=== PATIENT | male | born 1960 | race Caucasian/White ===

== ENCOUNTER → 2017-02-08 | Outpatient (CLI) | payer BC ==
--- NOTE | 2017-02-08 15:16 | RAD ---
Chest, 2 views, 02/08/2017: History: COPD, hypertension, diabetes The heart size and pulmonary vascularity are normal. There is mild tortuosity of the thoracic aorta. A calcified granuloma is present left base. No acute infiltrates are seen. There is no evidence of pleural fluid. IMPRESSION: No acute cardiopulmonary abnormality is detected.
== END | disposition home or self-care (01) ==
LOC: RAD 14:52
PROVIDERS: ATTEND Internal Medicine Critical Care Medicine
DX: J44.9 Chronic obstructive pulmonary disease, unspecified (principal)
CPT/HCPCS: 71020

== ENCOUNTER 2018-01-09 07:11 | Outpatient (CLI) | payer BC ==
[2018-01-09 07:29] LABS: ADD MAN DIFF? NO
[2018-01-09 07:31] LABS: BASO % 1 % (0-3); EOS # 0.1 x10^3/uL (0.0-0.7); EOS % 2 % (0-3); HEMATOCRIT 42.4 % (39.0-53.0); HEMOGLOBIN 14.7 g/dL (13.0-17.5); LYMPH # 1.7 x10^3/uL (1.0-4.8); LYMPH % 29 % (24-48); MEAN CORPUSCULAR HEMOGLOBIN 30 pg (25-35); MEAN CORPUSCULAR HGB CONC 35 g/dL (31-37); MEAN CORPUSCULAR VOLUME 88 fL (79-100); MONO # 0.5 x10^3/uL (0.0-1.1); MONO % 9 % (0-9); NEUT # 3.3 x10^3uL (1.8-7.7); NEUT % 59 % (31-73); PLATELET COUNT 213 x10^3/uL (140-400); RED BLOOD COUNT 4.84 x10^6/uL (4.30-5.70); RED CELL DISTRIBUTION WIDTH 16.4 % (11.5-14.5); WHITE BLOOD COUNT 5.6 x10^3/uL (4.0-11.0)
[2018-01-09 07:40] LABS: PROTHROMBIN TIME PATIENT 13.1 SEC (11.7-14.0)
[2018-01-09 07:41] LABS: PARTIAL THROMBOPLASTIN TIME 26 SEC (24-38)
[2018-01-09] MEDS ORDERED: LIDOCAINE WITH 8.4% SOD BICARB 3 ML DISP.SYRIN. (08:43)
[2018-01-09] MEDS: LIDOCAINE WITH 8.4% SOD BICARB 3 ML DISP.SYRIN. IJ (08:45)
== END 2018-01-09 09:48 | disposition home or self-care (01) ==
LOC: INTRAD 07:11
DX: D86.1 Sarcoidosis of lymph nodes (principal)
CPT/HCPCS: 36415; 38505; 76536; 76942; 85025; 85610; 85730

== ENCOUNTER → 2018-02-09 | Outpatient (CLI) | payer BC | END | disposition home or self-care (01) | LOC: CT 08:29 | DX: R59.0 Localized enlarged lymph nodes (principal); J44.9 Chronic obstructive pulmonary disease, unspecified | CPT/HCPCS: 71250 ==

== ENCOUNTER 2018-02-23 08:49 | Day surgery (SDC) | payer BC ==
[~2018-02-23 08:49] MED LIST: LIDOCAINE 1% PF 2 ML VIAL. ID; ONDANSETRON PF 4 MG/2 ML VIAL. IV; PROCHLORPERAZINE 10 MG/2 ML VIAL. IV; fentaNYL PF VIAL 100 MCG/2 ML VIAL IV
[2018-02-23] MEDS: IV RINGERS,LACTATED 1000ML 1,000 ML IV (09:44)
[2018-02-23 09:46] LABS: POC GLUCOSE 101 mg/dL (70-99)
[2018-02-23] MEDS ORDERED: GLYCOPYRROLATE 1 MG/5 ML VIAL. (10:08)
[2018-02-23] MEDS ORDERED: fentaNYL PF VIAL 100 MCG/2 ML VIAL ×3 (10:08→12:31)
[2018-02-23] MEDS ORDERED: SEVOFLURANE 61 TO 120 MINUTES. IH (10:08)
[2018-02-23] MEDS ORDERED: MIDAZOLAM HCL/PF 2 MG/2 ML VIAL. (10:08)
[2018-02-23] MEDS ORDERED: LIDOCAINE 2% PF Vial for OR 5 ML VIAL. (10:09)
[2018-02-23] MEDS ORDERED: NEOSTIGMINE METHYLSULFATE 5 MG/5 ML SYRINGE. (10:09)
[2018-02-23] MEDS ORDERED: ONDANSETRON PF 4 MG/2 ML VIAL. (10:09)
[2018-02-23] MEDS ORDERED: DEXAMETHASONE SOD PHOS 20 MG/5 ML VIAL. (10:09)
[2018-02-23] MEDS ORDERED: PROPOFOL 20 ML IV (10:09)
[2018-02-23] MEDS ORDERED: ROCURONIUM 50 MG/5 ML VIAL. ×2 (10:09→11:56)
[2018-02-23] MEDS: LIDOCAINE 1% PF 30 ML VIAL. (11:52)
[2018-02-23] MEDS: BUPIVACAINE MPF 0.5% 30 ML VIAL. (11:52)
[2018-02-23] MEDS: MORPHINE SULFATE 2 MG/ML DISP.SYRIN. IV ×4 (13:26→14:14)
[2018-02-23 14:19] LABS: POC GLUCOSE 148 mg/dL (70-99)
[2018-02-23] MEDS ORDERED: HYDROcodone/APAP 5/325MG 1 TAB TABLET (15:06)
[2018-02-23] MEDS ORDERED: HYDROcodone/APAP 5/325MG 1 TAB TABLET PO (15:30)
== END 2018-02-23 15:37 | disposition home or self-care (01) ==
LOC: SURG 08:49
DX: C77.1 Secondary and unspecified malignant neoplasm of intrathoracic lymph nodes (principal); C80.1 Malignant (primary) neoplasm, unspecified; I26.99 Other pulmonary embolism without acute cor pulmonale; E89.0 Postprocedural hypothyroidism; E66.01 Morbid (severe) obesity due to excess calories; Z68.41 Body mass index [BMI] 40.0-44.9, adult; J44.9 Chronic obstructive pulmonary disease, unspecified; I10 Essential (primary) hypertension; E11.9 Type 2 diabetes mellitus without complications; E78.00 Pure hypercholesterolemia, unspecified; Z98.890 Other specified postprocedural states; Z83.3 Family history of diabetes mellitus; Z80.6 Family history of leukemia; Z80.1 Family history of malignant neoplasm of trachea, bronchus and lung; Z87.891 Personal history of nicotine dependence; Z88.8 Allergy status to other drugs, medicaments and biological substances; K21.9 Gastro-esophageal reflux disease without esophagitis; Z98.52 Vasectomy status; Z79.01 Long term (current) use of anticoagulants; Z79.84 Long term (current) use of oral hypoglycemic drugs
CPT/HCPCS: 36415; 82962; 86850; 86900; 86901; 88305; 88331; 88341; 88342; A7015; J1100; J2001; J2250; J2270; J2405; J2704; J2710; J3010; J3490

== ENCOUNTER → 2018-02-26 | Outpatient (CLI) | payer BC ==
[2018-02-26] MEDS: IOHEXOL 240 MG/ML 50ML VIAL. PO (09:00)
[2018-02-26] MEDS: IOHEXOL 300 MG/ML 100ML VIAL. IV (10:15)
== END | disposition home or self-care (01) ==
LOC: CT 08:22
DX: C34.90 Malignant neoplasm of unspecified part of unspecified bronchus or lung (principal); E89.0 Postprocedural hypothyroidism; J44.9 Chronic obstructive pulmonary disease, unspecified
CPT/HCPCS: 74178; Q9966; Q9967

== ENCOUNTER 2018-02-28 10:45 | Emergency (ER) | payer BC ==
[2018-02-28 12:32] LABS: ADD MAN DIFF? NO
[2018-02-28 12:35] LABS: BASO % 1 % (0-3); EOS # 0.1 x10^3/uL (0.0-0.7); EOS % 1 % (0-3); HEMATOCRIT 46.4 % (39.0-53.0); HEMOGLOBIN 16.2 g/dL (13.0-17.5); LYMPH # 2.1 x10^3/uL (1.0-4.8); LYMPH % 28 % (24-48); MEAN CORPUSCULAR HEMOGLOBIN 31 pg (25-35); MEAN CORPUSCULAR HGB CONC 35 g/dL (31-37); MEAN CORPUSCULAR VOLUME 88 fL (79-100); MONO # 0.6 x10^3/uL (0.0-1.1); MONO % 8 % (0-9); NEUT # 4.7 x10^3uL (1.8-7.7); NEUT % 63 % (31-73); PLATELET COUNT 252 x10^3/uL (140-400); RED BLOOD COUNT 5.27 x10^6/uL (4.30-5.70); RED CELL DISTRIBUTION WIDTH 15.8 % (11.5-14.5); WHITE BLOOD COUNT 7.5 x10^3/uL (4.0-11.0)
[2018-02-28 12:48] LABS: ANION GAP 13 (6-14); BLOOD UREA NITROGEN 17 mg/dL (8-26); CALCIUM 9.8 mg/dL (8.5-10.1); CARBON DIOXIDE 25 mmol/L (21-32); CHLORIDE 100 mmol/L (98-107); GLUCOSE 91 mg/dL (70-99); POTASSIUM 4.2 mmol/L (3.5-5.1); SODIUM 138 mmol/L (136-145)
== END 2018-02-28 14:12 | disposition home or self-care (01) ==
LOC: ER 10:45
DX: S10.93XA Contusion of unspecified part of neck, initial encounter (principal); E11.9 Type 2 diabetes mellitus without complications; I10 Essential (primary) hypertension; G47.30 Sleep apnea, unspecified; Z88.8 Allergy status to other drugs, medicaments and biological substances; X58.XXXA Exposure to other specified factors, initial encounter; Y93.89 Activity, other specified; Y92.89 Other specified places as the place of occurrence of the external cause; Y99.8 Other external cause status
CPT/HCPCS: 36415; 80048; 85025; 99284

== ENCOUNTER → 2018-03-09 | Outpatient (CLI) | payer BC | END | disposition home or self-care (01) | LOC: RAD 11:34 | DX: Z48.812 Encounter for surgical aftercare following surgery on the circulatory system (principal); J84.10 Pulmonary fibrosis, unspecified; Z95.1 Presence of aortocoronary bypass graft | CPT/HCPCS: 71046 ==

== ENCOUNTER → 2018-03-23 | Outpatient (CLI) | payer BC ==
[2018-03-23] MEDS: GADOBUTROL 10 MMOL/10 ML VIAL IV (10:53)
== END | disposition home or self-care (01) ==
LOC: MRI 09:59
DX: C34.90 Malignant neoplasm of unspecified part of unspecified bronchus or lung (principal); I10 Essential (primary) hypertension; E11.9 Type 2 diabetes mellitus without complications; E78.00 Pure hypercholesterolemia, unspecified; K21.9 Gastro-esophageal reflux disease without esophagitis; E66.01 Morbid (severe) obesity due to excess calories; J44.9 Chronic obstructive pulmonary disease, unspecified; Z87.891 Personal history of nicotine dependence
CPT/HCPCS: 70553; A9585

== ENCOUNTER 2018-04-06 07:24 | Outpatient (CLI) | payer BC ==
[2018-04-06 08:25] LABS: ADD MAN DIFF? NO
[2018-04-06 08:35] LABS: BASO % 1 % (0-3); EOS # 0.1 x10^3/uL (0.0-0.7); EOS % 2 % (0-3); HEMATOCRIT 45.3 % (39.0-53.0); HEMOGLOBIN 15.3 g/dL (13.0-17.5); LYMPH # 1.7 x10^3/uL (1.0-4.8); LYMPH % 29 % (24-48); MEAN CORPUSCULAR HEMOGLOBIN 30 pg (25-35); MEAN CORPUSCULAR HGB CONC 34 g/dL (31-37); MEAN CORPUSCULAR VOLUME 89 fL (79-100); MONO # 0.5 x10^3/uL (0.0-1.1); MONO % 9 % (0-9); NEUT # 3.5 x10^3uL (1.8-7.7); NEUT % 60 % (31-73); PLATELET COUNT 193 x10^3/uL (140-400); RED BLOOD COUNT 5.08 x10^6/uL (4.30-5.70); RED CELL DISTRIBUTION WIDTH 15.3 % (11.5-14.5); WHITE BLOOD COUNT 5.8 x10^3/uL (4.0-11.0)
[2018-04-06 08:44] LABS: PARTIAL THROMBOPLASTIN TIME 25 SEC (24-38); PROTHROMBIN TIME PATIENT 12.9 SEC (11.7-14.0)
[2018-04-06] MEDS ORDERED: LIDOCAINE 1%/EPI 1:100,000 20 ML VIAL. (09:11)
[2018-04-06] MEDS: LIDOCAINE 1%/EPI 1:100,000 20 ML VIAL. IJ (09:44)
[2018-04-06] MEDS: MIDAZOLAM HCL/PF 5 MG/5 ML VIAL. IV (09:44)
[2018-04-06] MEDS: fentaNYL PF VIAL 100 MCG/2 ML VIAL IV (09:45)
[2018-04-06] MEDS ORDERED: MIDAZOLAM HCL/PF 5 MG/5 ML VIAL. (14:26)
[2018-04-06] MEDS ORDERED: fentaNYL PF VIAL 100 MCG/2 ML VIAL (14:26)
== END 2018-04-06 11:35 | disposition home or self-care (01) ==
LOC: US 07:24
DX: Z45.2 Encounter for adjustment and management of vascular access device (principal); C34.90 Malignant neoplasm of unspecified part of unspecified bronchus or lung; Z85.850 Personal history of malignant neoplasm of thyroid; E78.00 Pure hypercholesterolemia, unspecified; I10 Essential (primary) hypertension; J44.9 Chronic obstructive pulmonary disease, unspecified; Z86.711 Personal history of pulmonary embolism; K21.9 Gastro-esophageal reflux disease without esophagitis; Z98.52 Vasectomy status; M19.90 Unspecified osteoarthritis, unspecified site; E11.9 Type 2 diabetes mellitus without complications; E89.0 Postprocedural hypothyroidism; I42.9 Cardiomyopathy, unspecified; Z87.891 Personal history of nicotine dependence; E66.01 Morbid (severe) obesity due to excess calories; Z68.41 Body mass index [BMI] 40.0-44.9, adult; Z95.1 Presence of aortocoronary bypass graft; Z83.3 Family history of diabetes mellitus; Z80.6 Family history of leukemia; Z80.1 Family history of malignant neoplasm of trachea, bronchus and lung; Z79.84 Long term (current) use of oral hypoglycemic drugs; Z98.890 Other specified postprocedural states; Z79.01 Long term (current) use of anticoagulants; Z88.8 Allergy status to other drugs, medicaments and biological substances
CPT/HCPCS: 36415; 36561; 76536; 76937; 77001; 85025; 85610; 85730; 99152; 99153; C1751; C1769; C1788; C1892; J0690; J2250; J3010; J3490

== ENCOUNTER → 2018-04-09 | Outpatient (CLI) | payer BC ==
[2018-04-09 07:47] LABS: ADD MAN DIFF? NO
[2018-04-09 08:02] LABS: BASO % 1 % (0-3); EOS # 0.1 x10^3/uL (0.0-0.7); EOS % 2 % (0-3); HEMATOCRIT 45.4 % (39.0-53.0); HEMOGLOBIN 15.9 g/dL (13.0-17.5); LYMPH # 1.3 x10^3/uL (1.0-4.8); LYMPH % 24 % (24-48); MEAN CORPUSCULAR HEMOGLOBIN 31 pg (25-35); MEAN CORPUSCULAR HGB CONC 35 g/dL (31-37); MEAN CORPUSCULAR VOLUME 88 fL (79-100); MONO # 0.6 x10^3/uL (0.0-1.1); MONO % 12 % (0-9); NEUT # 3.3 x10^3uL (1.8-7.7); NEUT % 62 % (31-73); PLATELET COUNT 197 x10^3/uL (140-400); RED BLOOD COUNT 5.16 x10^6/uL (4.30-5.70); RED CELL DISTRIBUTION WIDTH 15.2 % (11.5-14.5); WHITE BLOOD COUNT 5.4 x10^3/uL (4.0-11.0)
[2018-04-09 08:12] LABS: ALBUMIN 3.9 g/dL (3.4-5.0); ALK PHOS 80 U/L (46-116); ALT (SGPT) 37 U/L (16-63); AST (SGOT) 17 U/L (15-37); BLOOD UREA NITROGEN 16 mg/dL (8-26); BUN/CREATININE RATIO 16 (6-20); CALCIUM 9.4 mg/dL (8.5-10.1); GLUCOSE 123 mg/dL (70-99); SODIUM 138 mmol/L (136-145); TOTAL BILIRUBIN 0.3 mg/dL (0.2-1.0); TOTAL PROTEIN 7.9 g/dL (6.4-8.2)
[2018-04-09 08:13] LABS: ANION GAP 10 (6-14); CARBON DIOXIDE 25 mmol/L (21-32); CHLORIDE 103 mmol/L (98-107); POTASSIUM 4.3 mmol/L (3.5-5.1)
== END | disposition home or self-care (01) ==
LOC: LAB 07:21
DX: C34.01 Malignant neoplasm of right main bronchus (principal); I10 Essential (primary) hypertension; E11.9 Type 2 diabetes mellitus without complications; E78.00 Pure hypercholesterolemia, unspecified; J44.9 Chronic obstructive pulmonary disease, unspecified; K21.9 Gastro-esophageal reflux disease without esophagitis; E89.0 Postprocedural hypothyroidism; Z86.711 Personal history of pulmonary embolism; Z87.891 Personal history of nicotine dependence
CPT/HCPCS: 36415; 80053; 85025

== ENCOUNTER → 2018-06-01 | Outpatient (CLI) | payer BC ==
[2018-02-28 13:59] VITALS: BP 113/75
[~2018-06-01] MED LIST changes: +ACET325T9 PO; +ACET500T33 PO; +BUDE10.2 IH; +CONTRAST GIVEN. MC PRN; -LIDOCAINE 1% PF 2 ML VIAL. ID; +LISI10TA2 PO; +METF10007 PO; +OMEP20TA63 PO; +ONDA8TAB9 PO; -ONDANSETRON PF 4 MG/2 ML VIAL. IV; +OXYC-323 PO; -PROCHLORPERAZINE 10 MG/2 ML VIAL. IV; +RIVA20TA2 PO; -fentaNYL PF VIAL 100 MCG/2 ML VIAL IV
[2018-06-01] MEDS: IOHEXOL 240 MG/ML 50ML VIAL. PO ONE (16:44)
[2018-06-01] MEDS: IOHEXOL 300 MG/ML 100ML VIAL. IV ONE (16:44)
--- NOTE | 2018-06-02 10:06 | RAD ---
CT of the chest, abdomen and pelvis with contrast, 06/01/2018: History: Right lung malignancy Multidetector CT imaging was performed following oral and IV administration of contrast. Comparison is made to a study from 02/09/2018. The parenchymal mass in the medial aspect of the right upper lobe has markedly regressed since 02/09/2018 CT study as well as the 03/29/2018 exam. There is now only a tiny residual 5 x 1.5 mm parenchymal opacity at this level with mild tethering of the adjacent mediastinum. No new pulmonary abnormality is seen. There is a calcified granuloma in the left lower lobe. There is no evidence of pleural fluid. Previously seen mediastinal adenopathy has regressed. The 20 x 24 mm right paratracheal lymph node evident on the 02/09/2018 study now measures 11 x 12 mm. There are multiple calcified mediastinal and left hilar lymph nodes. A left Port-A-Cath extends to the level of the atriocaval junction. The mediastinum is otherwise unremarkable. There appears to be mild hepatic steatosis. Several calcified granulomata are present in the liver and spleen. No hepatic mass is evident. The gallbladder is unremarkable. No pancreatic abnormality is seen. The spleen is of normal size. There is mild bilateral renal cortical scarring. The kidneys show no evidence of obstruction. No adrenal abnormality is detected. Moderate aortoiliac calcific plaquing is present. No abdominal or pelvic adenopathy is seen. The bowel loops are unremarkable. No free fluid is evident in the abdomen or pelvis. IMPRESSION: 1. Marked interval decrease in size of the right upper lobe malignancy. 2. Regression of the mediastinal adenopathy. 3. No new chest abnormality is detected. 4. No evidence of metastatic disease in the abdomen or pelvis. PQRS Compliance Statement: One or more of the following individualized dose reduction techniques were utilized for this examination: 1. Automated exposure control 2. Adjustment of the mA and/or kV according to patient size 3. Use of iterative reconstruction technique PQRS Compliance Statement: One or more of the following individualized dose reduction techniques were utilized for this examination: 1. Automated exposure control 2. Adjustment of the mA and/or kV according to patient size 3. Use of iterative reconstruction technique
== END | disposition home or self-care (01) ==
LOC: CT 15:28
PROVIDERS: ATTEND Internal Medicine Hematology & Oncology
DX: C34.11 Malignant neoplasm of upper lobe, right bronchus or lung (principal); J44.9 Chronic obstructive pulmonary disease, unspecified; E66.01 Morbid (severe) obesity due to excess calories; R59.0 Localized enlarged lymph nodes; Z86.711 Personal history of pulmonary embolism; Z87.891 Personal history of nicotine dependence; Z85.850 Personal history of malignant neoplasm of thyroid; Z68.41 Body mass index [BMI] 40.0-44.9, adult; Z80.1 Family history of malignant neoplasm of trachea, bronchus and lung; Z80.6 Family history of leukemia; Z83.3 Family history of diabetes mellitus
CPT/HCPCS: 71260; 74177

== ENCOUNTER → 2018-08-24 | Outpatient (CLI) | payer BC ==
[2018-02-28 13:59] VITALS: BP 113/75
[~2018-08-24] MED LIST changes: +ACET500T68 PO; +AMLO5TAB7 PO; +DURV120V IV; +EDOX60TA PO; +GLIP5TAB22 PO; +IOHEXOL 300 MG/ML 100ML VIAL. IV ONE; +LEVO500T8 PO; +LEVO50TA PO; -OXYC-323 PO; +OXYC1TAB15 PO
--- NOTE | 2018-08-24 16:43 | RAD ---
CT of the chest with contrast, 08/24/2018: History: Follow-up right lung malignancy Multidetector CT imaging was performed with multiplanar reconstructions produced. Comparison is made to a study from 06/01/2018. Streak artifacts obscure portions of the lower chest. Moderate right parahilar infiltrates have developed. These consist of streaky densities and groundglass opacities superimposed upon emphysematous change. There is only a trace amount of right-sided pleural fluid. Minimal patchy groundglass opacities have developed in the left lung, best seen anteriorly in the left upper lobe. Granulomatous calcifications are present in the mediastinum, left hilum and left lower lobe. No left-sided pleural fluid is seen. There is mild mediastinal adenopathy mild residual right paratracheal adenopathy seen on the previous study has increased slightly in size now measuring 21 x 23 mm compared to a measurement of 15 x 9 mm on the previous study. There is a 13 mm node along the anterior aspect of the left main pulmonary artery which measures 7 mm on the previous study. There is extensive hepatic steatosis. IMPRESSION: 1. Worsening mild mediastinal adenopathy. 2. Moderate right pulmonary infiltrates have developed suggesting pneumonia versus lymphangitic metastatic disease. 3. Mild patchy groundglass opacities have developed in the left lung. PQRS Compliance Statement: One or more of the following individualized dose reduction techniques were utilized for this examination: 1. Automated exposure control 2. Adjustment of the mA and/or kV according to patient size 3. Use of iterative reconstruction technique
== END | disposition home or self-care (01) ==
LOC: CT 08:04 → MERGE 08:04
PROVIDERS: ATTEND Internal Medicine Hematology & Oncology
DX: C34.01 Malignant neoplasm of right main bronchus (principal); K76.0 Fatty (change of) liver, not elsewhere classified; R91.8 Other nonspecific abnormal finding of lung field; R59.0 Localized enlarged lymph nodes
CPT/HCPCS: 71260; Q9967

== ENCOUNTER 2018-08-27 15:09 | Inpatient (IN) | payer BC ==
[~2018-08-27] VITALS: Ht 182.9 cm; Wt 147.1 kg
[~2018-08-27 15:09] MED LIST changes: -ACET500T68 PO; -AMLO5TAB7 PO; -CONTRAST GIVEN. MC PRN; -EDOX60TA PO; -GLIP5TAB22 PO; -IOHEXOL 300 MG/ML 100ML VIAL. IV ONE; -LEVO500T8 PO; -LEVO50TA PO
[2018-08-27] MEDS ORDERED: IOHEXOL 300 MG/ML 100ML VIAL. IV ONE (15:45)
[2018-08-27] MEDS ORDERED: methylPREDNISolone SOD SUCC PF 125 MG/2 ML VIAL. IV ONE (15:45)
[2018-08-27] MEDS ORDERED: CONTRAST GIVEN. MC PRN (15:45)
[2018-08-27] MEDS ORDERED: IPRATROPIUM BROMIDE 0.5 MG/2.5 ML NEBU. NEB ONE (15:45)
--- NOTE | 2018-08-27 15:46 | PHYS DOC ---
Past Medical History Past Medical History: Cancer, COPD, Diabetes-Type II, Hypertension, Other Additional Past Medical Histor: SLEEP APNEA, ADENOCARCINOMA OF LUNGS AND LYMPH NODES Past Surgical History: Other Additional Past Surgical Histo: UMBILICAL HERNIA, PARTIAL THYROIDECTOMY, BIOPSY Alcohol Use: Sober Drug Use: None Adult General Chief Complaint Chief Complaint: SHORTNESS OF BREATH HPI HPI Patient is a 58 year old male who presents with difficulty breathing. This has been getting worse over the past several weeks. Much worse over the last 2 weeks. Patient is being treated for adenocarcinoma of the lungs. He had a follow -up screening CT scan performed 3 days ago and was told that he had inflammation of his lungs most likely as a result of the radiation or the immune modulator therapy. Patient notes some left lateral chest pain that occurs at variable times with radiation down to his buttocks. This is not associated with exertion or respirations. He denies any swelling in his legs or feet. Denies any recent travel, trauma, nor stasis. He denies any cough or fever.[] Review of Systems Review of Systems Constitutional: Denies fever or chills [] Eyes: Denies change in visual acuity, redness, or eye pain [] HENT: Denies nasal congestion or sore throat [] Respiratory: See history of present illness[] Cardiovascular: No additional information not addressed in HPI [] GI: Denies abdominal pain, nausea, vomiting, bloody stools or diarrhea [] : Denies dysuria or hematuria [] Musculoskeletal: Denies back pain or joint pain [] Integument: Denies rash or skin lesions [] Neurologic: Denies headache, focal weakness or sensory changes [] Endocrine: Denies polyuria or polydipsia [] All other systems were reviewed and found to be within normal limits, except as documented in this note. Current Medications Current Medications Current Medications Medications (Trade) Dose Ordered Sig/Christina Start Time Stop Time Status Last Admin Dose Admin Info (CONTRAST GIVEN -- Rx MONITORING) 1 each PRN DAILY PRN 08/27/18 15:45 08/29/18 15:44 Iohexol (Omnipaque 300 Mg/ml) 75 ml 1X ONCE 08/27/18 15:45 08/27/18 15:46 DC 08/27/18 15:45 100 ML Ipratropium Uneeda (Atrovent) 0.5 mg 1X ONCE 08/27/18 15:45 08/27/18 15:46 DC 08/27/18 16:05 0.5 MG Methylprednisolone Sodium Succinate (SOLU-Medrol 125MG VIAL) 125 mg 1X ONCE 08/27/18 15:45 08/27/18 15:46 DC 08/27/18 15:59 125 MG Allergies Allergies Allergies Coded Allergies Type Severity Reaction Last Updated Verified Wrurjhw-Vht-Ilp Reductase Inhibitor Allergy Intermediate 08/24/18 Yes atorvastatin Allergy Intermediate Rash 02/23/18 Yes pravastatin Allergy Intermediate Swelling 02/23/18 Yes Physical Exam Physical Exam Constitutional: Well developed, well nourished, no acute distress, non-toxic appearance. [] HENT: Normocephalic, atraumatic, bilateral external ears normal, oropharynx moist, no oral exudates, nose normal. [] Eyes: PERRLA, EOMI, conjunctiva normal, no discharge. [] Neck: Normal range of motion, no tenderness, supple, no stridor. [] Cardiovascular:Heart rate regular rhythm, no murmur [] Lungs & Thorax: Bilateral breath sounds clear to auscultation [] Abdomen: Bowel sounds normal, soft, no tenderness, no masses, no pulsatile masses. [] Skin: Warm, dry, no erythema, no rash. [] Back: No tenderness, no CVA tenderness. [] Extremities: No tenderness, no cyanosis, no clubbing, ROM intact, no edema. [] Neurologic: Alert and oriented X 3, normal motor function, normal sensory function, no focal deficits noted. [] Psychologic: Affect normal, judgement normal, mood normal. [] Current Patient Data Vital Signs Vital Signs Date Time Temp Pulse Resp B/P (MAP) Pulse Ox O2 Delivery O2 Flow Rate FiO2 08/27/18 16:07 95 Nasal Cannula 4.0 08/27/18 15:38 98.0 103 24 136/98 (111) 98.0 Lab Values Laboratory Tests Test 08/27/18 15:59 08/27/18 16:33 White Blood Count 6.6 x10^3/uL (4.0-11.0) Red Blood Count 4.28 x10^6/uL (4.30-5.70) L Hemoglobin 13.9 g/dL (13.0-17.5) Hematocrit 40.1 % (39.0-53.0) Mean Corpuscular Volume 94 fL (79-100) Mean Corpuscular Hemoglobin 33 pg (25-35) Mean Corpuscular Hemoglobin Concent 35 g/dL (31-37) Red Cell Distribution Width 16.8 % (11.5-14.5) H Platelet Count 218 x10^3/uL (140-400) Neutrophils (%) (Auto) 82 % (31-73) H Lymphocytes (%) (Auto) 10 % (24-48) L Monocytes (%) (Auto) 6 % (0-9) Eosinophils (%) (Auto) 2 % (0-3) Basophils (%) (Auto) 0 % (0-3) Neutrophils # (Auto) 5.5 x10^3uL (1.8-7.7) Lymphocytes # (Auto) 0.6 x10^3/uL (1.0-4.8) L Monocytes # (Auto) 0.4 x10^3/uL (0.0-1.1) Eosinophils # (Auto) 0.1 x10^3/uL (0.0-0.7) Basophils # (Auto) 0.0 x10^3/uL (0.0-0.2) Sodium Level 137 mmol/L (136-145) Potassium Level 3.6 mmol/L (3.5-5.1) Chloride Level 100 mmol/L (98-107) Carbon Dioxide Level 22 mmol/L (21-32) Anion Gap 15 (6-14) H Blood Urea Nitrogen 14 mg/dL (8-26) Creatinine 1.2 mg/dL (0.7-1.3) Estimated GFR (Cockcroft-Gault) 62.4 BUN/Creatinine Ratio 12 (6-20) Glucose Level 127 mg/dL (70-99) H Calcium Level 9.3 mg/dL (8.5-10.1) Total Bilirubin 0.2 mg/dL (0.2-1.0) Aspartate Amino Transferase (AST) 27 U/L (15-37) Alanine Aminotransferase (ALT) 32 U/L (16-63) Alkaline Phosphatase 70 U/L (46-116) Troponin I Quantitative < 0.017 ng/mL (0.000-0.055) SM-Iqa-S-Type Natriuretic Peptide 21 pg/mL (0-124) Total Protein 7.5 g/dL (6.4-8.2) Albumin 3.7 g/dL (3.4-5.0) Albumin/Globulin Ratio 1.0 (1.0-1.7) Influenza Type A Antigen Negative (NEGATIVE) Influenza Type B Antigen Negative (NEGATIVE) Laboratory Tests 08/27/18 15:59 Laboratory Tests 08/27/18 15:59 EKG EKG EKG shows normal sinus rhythm at 98 bpm. Normal axis, normal QTC, flipped T waves in V4 5 and 6. There is no old EKG available for comparison.[] Radiology/Procedures Radiology/Procedures CT angiogram of the chest FINDINGS: Diagnostic quality PE study. There are no central, segmental or subsegmental filling defects in the pulmonary arteries. Heart is normal in size. No pericardial or pleural effusion. Left chest wall Chemo-Port is seen with its tip in the SVC. No enlarged axillary adenopathy. Enlarged mediastinal and hilar lymph nodes are seen. Index lymph nodes as follows: 1.9 x 1.3 cm aortopulmonary recess lymph node (series 3 image 46). Right hilar lymph node measuring 2.6 x 1.6 cm (series 3 image 64). Multiple calcified mediastinal and left hilar lymph nodes are seen. Diffuse emphysematous changes are seen in the lungs. There are new interstitial opacities with consolidation in the region of right hilum. Findings are new when compared to previous exam from 06/01/2018. Diffuse hepatic steatosis. The visualized sections through the spleen, gallbladder, pancreas, adrenals and left kidney within normal limits. No suspicious bony lesion. IMPRESSION: 1. No PE. 2. Bilateral lung disease, new from previous exam from 06/01/2018 suggests right hilar pneumonia with superimposed interstitial infection. Follow-up CT recommended after medical therapy to ensure resolution. 3. Enlarged chest lymph nodes likely reactive. 4. Hepatic steatosis.[] Course & Med Decision Making Course & Med Decision Making Pertinent Labs and Imaging studies reviewed. (See chart for details) Medical decision making: Given patient's relatively weakened immune state with the CT findings consistent with pneumonia, as well as his new hypoxia, patient will be admitted. Patient was given IV antibiotics while in the emergency department.[] Dragon Disclaimer Dragon Disclaimer This electronic medical record was generated, in whole or in part, using a voice recognition dictation system. Departure Departure Referrals: FELICIA CARPENTER MD (PCP) JOHN ADORNO DO Aug 27, 2018 15:46
--- NOTE | 2018-08-27 16:03 | EKG ---
[facility] [address] [place] [address] Test Date: 2018-08-27 Test Time: 15:46:49 Pat Name: CAMERON ZEE Department: Room: Gender: M Glaze [employer]er: : 1960 Requested By: JOHN ADORNO Order Number: [id number] Reading MD: Measurements Intervals [place] Rate: 98 P: 41 UT: 172 QRS: 13 QRSD: 72 T: 105 QT: 340 QTc: 436 Interpretive Statements SINUS RHYTHM LOW LIMB LEAD VOLTAGE QRS(T) CONTOUR ABNORMALITY CONSIDER ANTEROSEPTAL MYOCARDIAL DAMAGE T ABNORMALITY IN ANTERIOR LEADS ABNORMAL ECG RI6.01 No previous ECG available for comparison
[2018-08-27 16:06] LABS: BASO % 0 % (0-3); EOS # 0.1 x10^3/uL (0.0-0.7); EOS % 2 % (0-3); HEMATOCRIT 40.1 % (39.0-53.0); HEMOGLOBIN 13.9 g/dL (13.0-17.5); LYMPH # 0.6 x10^3/uL (1.0-4.8); LYMPH % 10 % (24-48); MEAN CORPUSCULAR HEMOGLOBIN 33 pg (25-35); MEAN CORPUSCULAR HGB CONC 35 g/dL (31-37); MEAN CORPUSCULAR VOLUME 94 fL (79-100); MONO # 0.4 x10^3/uL (0.0-1.1); MONO % 6 % (0-9); NEUT # 5.5 x10^3uL (1.8-7.7); NEUT % 82 % (31-73); PLATELET COUNT 218 x10^3/uL (140-400); RED BLOOD COUNT 4.28 x10^6/uL (4.30-5.70); RED CELL DISTRIBUTION WIDTH 16.8 % (11.5-14.5); WHITE BLOOD COUNT 6.6 x10^3/uL (4.0-11.0)
[2018-08-27 16:32] LABS: CALCIUM 9.3 mg/dL (8.5-10.1); CREATININE 1.2 mg/dL (0.7-1.3); GFR 62.4; POTASSIUM 3.6 mmol/L (3.5-5.1)
[2018-08-27 16:40] LABS: ALBUMIN 3.7 g/dL (3.4-5.0); TOTAL BILIRUBIN 0.2 mg/dL (0.2-1.0); TOTAL PROTEIN 7.5 g/dL (6.4-8.2)
[2018-08-27 17:00] LABS: INFLUENZA A PATIENT NEGATIVE (NEGATIVE); INFLUENZA B PATIENT NEGATIVE (NEGATIVE)
--- NOTE | 2018-08-27 17:39 | RAD ---
PQRS Compliance statement: One or more of the following individualized dose reduction techniques were utilized for this examination: 1. Automated exposure control. 2. Adjustment of the mA and/or kV according to patient size. 3. Use of iterative reconstruction technique. Indication:CHEST PAIN, SHORTNESS OF BREATH, PRIOR HX OF PE TECHNIQUE: CT angiogram of the chest with IV contrast with multiplanar MIP reformats. COMPARISON:CT chest from 06/01/2018 FINDINGS: Diagnostic quality PE study. There are no central, segmental or subsegmental filling defects in the pulmonary arteries. Heart is normal in size. No pericardial or pleural effusion. Left chest wall Chemo-Port is seen with its tip in the SVC. No enlarged axillary adenopathy. Enlarged mediastinal and hilar lymph nodes are seen. Index lymph nodes as follows: 1.9 x 1.3 cm aortopulmonary recess lymph node (series 3 image 46). Right hilar lymph node measuring 2.6 x 1.6 cm (series 3 image 64). Multiple calcified mediastinal and left hilar lymph nodes are seen. Diffuse emphysematous changes are seen in the lungs. There are new interstitial opacities with consolidation in the region of right hilum. Findings are new when compared to previous exam from 06/01/2018. Diffuse hepatic steatosis. The visualized sections through the spleen, gallbladder, pancreas, adrenals and left kidney within normal limits. No suspicious bony lesion. IMPRESSION: 1. No PE. 2. Bilateral lung disease, new from previous exam from 06/01/2018 suggests right hilar pneumonia with superimposed interstitial infection. Follow-up CT recommended after medical therapy to ensure resolution. 3. Enlarged chest lymph nodes likely reactive. 4. Hepatic steatosis. Electronically signed by: Yazan Strong DO (08/27/2018 5:36 PM) [facility]
[2018-08-27] MEDS ORDERED: cefTRIAXone IV Push 1 GM VIAL. IVP ONE (18:00)
[2018-08-27] MEDS ORDERED: AZITHRMYCN 500MG IVPB FOR OMNI 250 ML IV ONE (18:00)
[2018-08-27] MEDS ORDERED: ACETAMINOPHEN 325 MG TABLET. PO PRN (18:15)
[2018-08-27] MEDS ORDERED: ONDANSETRON PF 4 MG/2 ML VIAL. IV PRN ×2 (18:15→19:15)
[2018-08-27] MEDS ORDERED: PIP/TAZO PER PHARMACY MC PRN (19:00)
[2018-08-27] MEDS ORDERED: guaiFENesin DM 200MG/20MG 10 ML SYRUP PO PRN (19:00)
[2018-08-27] MEDS ORDERED: diphenhydrAMINE HCL 25 MG CAPSULE PO PRN (19:00)
[2018-08-27] MEDS ORDERED: ONDANSETRON ODT 4 MG TAB.RAPDIS. PO PRN (19:15)
[2018-08-27] MEDS ORDERED: IV NORMAL SALINE 1000ML BAG 1,000 ML IV ONE (19:15)
[2018-08-27] MEDS ORDERED: DEXTROSE 50% 25 GM / 50ML DISP.SYRIN. IV PRN (19:15)
[2018-08-27] MEDS: BUDESONIDE 0.5 MG/2 ML NEBU. NEB SCH (19:47)
[2018-08-27] MEDS: IPRATRPIUM/ALBUTEROL 0.5/2.5MG 3 ML NEBU. NEB SCH (19:47)
[2018-08-27] MEDS ORDERED: IPRATRPIUM/ALBUTEROL 0.5/2.5MG 3 ML NEBU. NEB SCH (20:00)
[2018-08-27] MEDS ORDERED: VANCOMYCIN 2 GM in IV NORMAL SALINE 500ML BAG 500 ML IV ONE (20:00)
[2018-08-27] MEDS ORDERED: RIVAROXABAN 10 MG TABLET. PO SCH (20:00)
[2018-08-27] MEDS: PIPERACILLIN/TAZOBACTAM 4.5 GM in IV NORMAL SALINE 100ML 100 ML IV SCH (20:15)
--- NOTE | 2018-08-27 20:23 | PDOC1 ---
History and Physical Date of Admission Date of Admission DATE: 08/27/18 TIME: 20:13 Identification/Chief Complaint Chief Complaint SOA, low-grade temperatures, cough yellowish 3 weeks Source Source: Caregiver, Chart review, Patient History of Present Illness History of Present Illness 58-year-old male, established patient of heme oncology ( Dr. Keon Melgar) , for adenoCA of the lungs, status post radiation therapy by DR Avendano and chemotherapy by our heme onc service. CC of 3 weeks of cough, yellowish phlegm , possibly low-grade temperatures at home with some diarrhea x 2 weeks , SOA. Imaging shows possibly right-sided pneumonia and atelectasis hence advised admission. No leukocytosis, he is on a chemotherapeutic agent administered via left-sided Port-A-Cath. CT angio was negative for PE but did show the infiltrates. We'll start broad- spectrum antibiotics and have heme onc and ID on board - check for stool c diff in this immuncomp Past Medical History Pulmonary: Bronchitis, COPD Heme/Onc: Anemia NOS, Cancer Endocrine: Diabetes Past Surgical History Past Surgical History: No pertinent history Family History Family History: No Significant Social History Smoke: No ALCOHOL: none Drugs: None Current Medications Current Medications Current Medications Ipratropium [place] (Atrovent) 0.5 mg 1X ONCE NEB Last administered on at 16:05; Start 08/27/18 at 15:45; Stop 08/27/18 at 15:46; Status DC Methylprednisolone Sodium Succinate (SOLU-Medrol 125MG VIAL) 125 mg 1X ONCE IV Last administered on 08/27/18at 15:59; Start 08/27/18 at 15:45; Stop at 15:46; Status DC Iohexol (Omnipaque 300 Mg/ml) 75 ml 1X ONCE IV Last administered on at 15:45; Start 08/27/18 at 15:45; Stop 08/27/18 at 15:46; Status DC Info (CONTRAST GIVEN -- Rx MONITORING) 1 each PRN DAILY PRN MC SEE COMMENTS; Start 08/27/18 at 15:45; Stop 08/29/18 at 15:44 Ceftriaxone Sodium (Rocephin) 1 gm 1X ONCE IVP Last administered on at 18:53; Start 08/27/18 at 18:00; Stop 08/27/18 at 18:01; Status DC Azithromycin 250 ml @ 250 mls/hr 1X ONCE IV ; Start 08/27/18 at 18:00; Stop 08/27/18 at 18:59; Status DC Ondansetron HCl (Zofran) 4 mg PRN Q8HRS PRN IV NAUSEA/VOMITING; Start at 18:15; Stop 08/27/18 at 19:01; Status DC Acetaminophen (Tylenol) 650 mg PRN Q4HRS PRN PO FEVER; Start 08/27/18 at 18:15 ; Stop 08/28/18 at 18:14 Albuterol/ Ipratropium (Duoneb) 3 ml RTQID NEB ; Start 08/27/18 at 20:00; Stop 08/27/18 at 20:00; Status DC Ondansetron HCl (Zofran) 4 mg PRN Q6HRS PRN IV NAUSEA/VOMITING; Start at 19:15 Vancomycin HCl (Vanco Per Pharmacy) 1 each PRN DAILY PRN MC SEE COMMENTS; Start 08/27/18 at 19:00; Status UNV Piperacillin Sod/ Tazobactam Sod (Zosyn Per Pharmacy) 1 each PRN DAILY PRN MC SEE COMMENTS; Start 08/27/18 at 19:00 Guaifenesin (Robitussin Dm) 10 ml PRN Q6HRS PRN PO COUGH; Start 08/27/18 at 19 :00 Albuterol/ Ipratropium (Duoneb) 3 ml RTQID NEB Last administered on 08/27/18at 19:47; Start 08/27/18 at 20:00 Diphenhydramine HCl (Benadryl) 25 mg PRN QHS PRN PO INSOMNIA; Start 08/27/18 at 19:00 Sodium Chloride 1,000 ml @ 100 mls/hr 1X ONCE IV ; Start 08/27/18 at 19:15; Stop 08/28/18 at 05:14 Lisinopril (Prinivil) 10 mg DAILY PO ; Start 08/28/18 at 09:00 Oxycodone/ Acetaminophen (Percocet 5/325) 1 tab PRN Q6HRS PRN PO PAIN; Start 08/27/18 at 19:15 Budesonide (Pulmicort) 0.5 mg RTBID NEB Last administered on 08/27/18at 19:47; Start 08/27/18 at 20:00 Metformin HCl (Glucophage) 1,000 mg BIDWMEALS PO ; Start 08/29/18 at 17:00 Pantoprazole Sodium (Protonix) 40 mg DAILYAC PO ; Start 08/28/18 at 07:30 Ondansetron HCl (Zofran Odt) 8 mg PRN BID PRN PO NAUSEA/VOMITING; Start at 19:15 Rivaroxaban (Xarelto) 20 mg DAILYWSUP PO ; Start 08/27/18 at 20:00 Insulin Human Lispro (HumaLOG) 0-9 UNITS TIDWMEALS SQ ; Start 08/27/18 at 19:30 Dextrose (Dextrose 50%-Water Syringe) 12.5 gm PRN Q15MIN PRN IV SEE COMMENTS; Start 08/27/18 at 19:15 Piperacillin Sod/ Tazobactam Sod 4.5 gm/Sodium Chloride 100 ml @ 200 mls/hr Q6HRS IV ; Start 08/27/18 at 19:30 Vancomycin HCl 2 gm/Sodium Chloride 500 ml @ 250 mls/hr 1X ONCE IV ; Start at 20:00; Stop 08/27/18 at 21:59 Active Scripts Active Reported Imfinzi (Durvalumab) 120 Mg/2.4 Ml Vial 120 Mg IV Q 2WEEKS PER REGIMEN Percocet 5-325 Mg Tablet (Oxycodone/Acetaminophen) 1 Each Tablet 1 Tab PO PRN Q6HRS PRN Zofran (Ondansetron Hcl) 8 Mg Tablet 8 Mg PO BID PRN Prilosec Otc (Omeprazole Magnesium) 20 Mg Tablet.dr 20 Mg PO BID Xarelto (Rivaroxaban) 20 Mg Tablet 20 Mg PO DAILY Symbicort 160-4.5 Mcg Inhaler (Budesonide/Formoterol Fumarate) 10.2 Gm Hfa.aer.ad 2 Puff IH BID Tylenol (Acetaminophen) 325 Mg Tablet 650 Mg PO PRN Metformin Hcl 1,000 Mg Tablet 1,000 Mg PO BIDWMEALS Lisinopril 10 Mg Tablet 1 Tab PO DAILY Allergies Allergies: Coded Allergies: Paohsqr-Nkf-Raz Reductase Inhibitor (Verified Allergy, Intermediate, ) atorvastatin (Verified Allergy, Intermediate, Rash, 02/23/18) pravastatin (Verified Allergy, Intermediate, Swelling, 02/23/18) joint area pain ROS Review of System As per history of present illness, the rest of ROS 14 point negative Physical Exam General: Alert, Oriented X3, Cooperative, No acute distress HEENT: Atraumatic, PERRLA Lungs: Normal air movement, Other (decreased breath sounds secondary to increased AP diameter but no crackles or wheezing appreciable) Heart: S1S2, RRR, no thrills, no rubs Cardiovascular: S1, S2 Abdomen: Soft, No tenderness, No hepatosplenomegaly, No masses, Other (hyper active bowel sounds) Rectal Exam: not examined PELVIC: Nml ext genitalia Extremities: No clubbing, No cyanosis, No edema, Normal pulses, No tenderness/ swelling Skin: No rashes, No breakdown, No significant lesion Neuro: Normal gait, Normal speech, Strength at 5/5 X4 ext, Normal tone, Sensation intact, Cranial nerves 3-12 NL, Reflexes 2+ Psych/Mental Status: Mental status NL, Mood NL Vitals Vitals Vital Signs Date Time Temp Pulse Resp B/P (MAP) Pulse Ox O2 Delivery O2 Flow Rate FiO2 08/27/18 19:50 93 Nasal Cannula 3.0 08/27/18 15:38 98.0 103 24 136/98 (111) 98.0 Labs Labs Laboratory Tests Test 08/27/18 15:59 08/27/18 16:33 White Blood Count 6.6 x10^3/uL (4.0-11.0) Red Blood Count 4.28 x10^6/uL (4.30-5.70) Hemoglobin 13.9 g/dL (13.0-17.5) Hematocrit 40.1 % (39.0-53.0) Mean Corpuscular Volume 94 fL (79-100) Mean Corpuscular Hemoglobin 33 pg (25-35) Mean Corpuscular Hemoglobin Concent 35 g/dL (31-37) Red Cell Distribution Width 16.8 % (11.5-14.5) Platelet Count 218 x10^3/uL (140-400) Neutrophils (%) (Auto) 82 % (31-73) Lymphocytes (%) (Auto) 10 % (24-48) Monocytes (%) (Auto) 6 % (0-9) Eosinophils (%) (Auto) 2 % (0-3) Basophils (%) (Auto) 0 % (0-3) Neutrophils # (Auto) 5.5 x10^3uL (1.8-7.7) Lymphocytes # (Auto) 0.6 x10^3/uL (1.0-4.8) Monocytes # (Auto) 0.4 x10^3/uL (0.0-1.1) Eosinophils # (Auto) 0.1 x10^3/uL (0.0-0.7) Basophils # (Auto) 0.0 x10^3/uL (0.0-0.2) Sodium Level 137 mmol/L (136-145) Potassium Level 3.6 mmol/L (3.5-5.1) Chloride Level 100 mmol/L (98-107) Carbon Dioxide Level 22 mmol/L (21-32) Anion Gap 15 (6-14) Blood Urea Nitrogen 14 mg/dL (8-26) Creatinine 1.2 mg/dL (0.7-1.3) Estimated GFR (Cockcroft-Gault) 62.4 BUN/Creatinine Ratio 12 (6-20) Glucose Level 127 mg/dL (70-99) Calcium Level 9.3 mg/dL (8.5-10.1) Total Bilirubin 0.2 mg/dL (0.2-1.0) Aspartate Amino Transf (AST/SGOT) 27 U/L (15-37) Alanine Aminotransferase (ALT/SGPT) 32 U/L (16-63) Alkaline Phosphatase 70 U/L (46-116) Troponin I Quantitative < 0.017 ng/mL (0.000-0.055) JJ-Gqk-N-Type Natriuretic Peptide 21 pg/mL (0-124) Total Protein 7.5 g/dL (6.4-8.2) Albumin 3.7 g/dL (3.4-5.0) Albumin/Globulin Ratio 1.0 (1.0-1.7) Influenza Type A Antigen Negative (NEGATIVE) Influenza Type B Antigen Negative (NEGATIVE) Laboratory Tests Test 08/27/18 15:59 08/27/18 16:33 White Blood Count 6.6 x10^3/uL (4.0-11.0) Red Blood Count 4.28 x10^6/uL (4.30-5.70) Hemoglobin 13.9 g/dL (13.0-17.5) Hematocrit 40.1 % (39.0-53.0) Mean Corpuscular Volume 94 fL (79-100) Mean Corpuscular Hemoglobin 33 pg (25-35) Mean Corpuscular Hemoglobin Concent 35 g/dL (31-37) Red Cell Distribution Width 16.8 % (11.5-14.5) Platelet Count 218 x10^3/uL (140-400) Neutrophils (%) (Auto) 82 % (31-73) Lymphocytes (%) (Auto) 10 % (24-48) Monocytes (%) (Auto) 6 % (0-9) Eosinophils (%) (Auto) 2 % (0-3) Basophils (%) (Auto) 0 % (0-3) Neutrophils # (Auto) 5.5 x10^3uL (1.8-7.7) Lymphocytes # (Auto) 0.6 x10^3/uL (1.0-4.8) Monocytes # (Auto) 0.4 x10^3/uL (0.0-1.1) Eosinophils # (Auto) 0.1 x10^3/uL (0.0-0.7) Basophils # (Auto) 0.0 x10^3/uL (0.0-0.2) Sodium Level 137 mmol/L (136-145) Potassium Level 3.6 mmol/L (3.5-5.1) Chloride Level 100 mmol/L (98-107) Carbon Dioxide Level 22 mmol/L (21-32) Anion Gap 15 (6-14) Blood Urea Nitrogen 14 mg/dL (8-26) Creatinine 1.2 mg/dL (0.7-1.3) Estimated GFR (Cockcroft-Gault) 62.4 BUN/Creatinine Ratio 12 (6-20) Glucose Level 127 mg/dL (70-99) Calcium Level 9.3 mg/dL (8.5-10.1) Total Bilirubin 0.2 mg/dL (0.2-1.0) Aspartate Amino Transf (AST/SGOT) 27 U/L (15-37) Alanine Aminotransferase (ALT/SGPT) 32 U/L (16-63) Alkaline Phosphatase 70 U/L (46-116) Troponin I Quantitative < 0.017 ng/mL (0.000-0.055) LF-Dcv-R-Type Natriuretic Peptide 21 pg/mL (0-124) Total Protein 7.5 g/dL (6.4-8.2) Albumin 3.7 g/dL (3.4-5.0) Albumin/Globulin Ratio 1.0 (1.0-1.7) Influenza Type A Antigen Negative (NEGATIVE) Influenza Type B Antigen Negative (NEGATIVE) VTE Prophylaxis Ordered VTE Prophylaxis Devices: Yes VTE Pharmacological Prophylaxi: Yes Assessment/Plan Assessment/Plan Pneumonia right sided, in an immunocompromised [place] lungs, status post chemotherapy and radiation therapy May 2018 Indwelling left Port-A-Cath Sepsis in an immunocompromised POA Negative PE on CTA Obesity, BMI 45 Hypertension, controlled Diabetes on metformin-+ scale insulin Hypoxia/POA secondary to [id number]-[id number] undiagnosed sleep apnea INc anion gap acidosis possibly secondary to GI loss Diarrhea 2 weeks Plan: Broad-spectrum antibiotics Courtesy consult heme onc as was sent by the service to be admitted I did consult ID given pneumonia in an immunocompromised Flu is negative Check for C. difficile in this immunocompromised, if negative may do Imodium KCL IVF since potassium borderline low 3.6 and still has having diarrhea Okay for regular diet I have reconciled home meds + Scale insulin Discussed with him and RN at bedside JAK BALL MD Aug 27, 2018 20:23
[2018-08-27] MEDS ORDERED: IV NORMAL SALINE 1000ML BAG 1,000 ML IV SCH (20:30)
[2018-08-27] MEDS: INSULIN LISPRO 300 UNITS/3 ML INSULN.PEN. SQ SCH (21:16)
[2018-08-27] MEDS: oxyCODONE/APAP 5/325 1 TAB TABLET PO PRN (21:19)
[2018-08-27] MEDS ORDERED: GLIP5TAB22 PO (21:28)
[2018-08-27] MEDS ORDERED: LEVO500T8 PO (21:28)
[2018-08-27] MEDS ORDERED: LEVO50TA PO (21:28)
[2018-08-27] MEDS ORDERED: EDOX60TA PO (21:28)
[2018-08-27] MEDS ORDERED: AMLO5TAB7 PO (21:28)
[2018-08-27] MEDS ORDERED: ACET500T68 PO (21:30)
[2018-08-27] MEDS: VANCOMYCIN PER PHARMACY MC PRN (21:30)
[2018-08-27 23:25] VITALS: BP 141/72
[2018-08-28] MEDS: PIPERACILLIN/TAZOBACTAM 4.5 GM in IV NORMAL SALINE 100ML 100 ML IV SCH ×4 (00:14→18:00)
[2018-08-28 03:55] VITALS: BP 106/62
[2018-08-28 07:24] VITALS: BP 111/54
[2018-08-28] MEDS: PANTOPRAZOLE 40 MG TABLET.DR. PO SCH (07:30)
[2018-08-28] MEDS: IPRATRPIUM/ALBUTEROL 0.5/2.5MG 3 ML NEBU. NEB SCH ×4 (07:55→19:39)
[2018-08-28] MEDS: BUDESONIDE 0.5 MG/2 ML NEBU. NEB SCH ×2 (07:55→19:39)
[2018-08-28] MEDS: INSULIN LISPRO 300 UNITS/3 ML INSULN.PEN. SQ SCH ×3 (08:00→17:00)
--- NOTE | 2018-08-28 08:46 | PDOC2 ---
CONSULT Date of Consult Date of Consult DATE: 08/28/18 TIME: 08:37 Reason for consultation: Pneumonia Consult: Hematology oncology, Dr. Jay Melgar History of present illness: He is a 58-year-old male with a history of stage III lung cancer, post chemoradiotherapy, on durvalumab maintenance, who was admitted yesterday due to shortness of air that had been increased, acute on chronic, worsening over time over the last couple weeks but more so over the weekend, associated with hypoxia with sats down in the low 70s on a home pulse Ox over the weekend with exertion, also associated with a cough and a little bit of phlegm production, and low-grade fever, he was admitted overnight and given steroids and nebulizers and antibiotics with improvement this morning, currently on 3 L O2, saturating in the 90s, with improvement and shortness of air. 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 Obstructive sleep apnea on CPAP Osteoarthritis Seasonal allergic rhinitis Pneumonia Obesity Past surgical history: Lymph node biopsy Mediastinoscopy Partial thyroidectomy Umbilical hernia repair Allergies: Statins Medications: See attached list Social history: , 3 children, quit tobacco August 2017, works with [employer] Family history: Leukemia and lung cancer Review of systems: Weight gain, diarrhea over the last couple weeks, increased shortness of air, a little bit of phlegm, chest pain over the weekend but not now, headache last night but better this morning, numbness and tingling in his feet with some pain, otherwise 10 point review of systems negative Physical exam: Vitals reviewed Gen.: Well-nourished, resting in bed, in no acute distress HEENT: mucous membranes moist, head normocephalic atraumatic Neck: Supple, no lymphadenopathy Lungs: Breathing comfortably on nasal cannula oxygen, no evidence of respiratory distress Heart: Regular rate and rhythm Abdomen: Soft, nontender, distended Extremities: No cyanosis or edema Skin: No obvious rashes or skin breakdown Neuro: Alert and oriented 3 Psych: Normal mood and affect Lab reviewed: White count 6.6, hemoglobin 13.9, platelets 218 Creatinine 1.2 Flu negative Blood glucose 204 Rads reviewed: CT angiogram 27 August showed no PE, new right hilar pneumonia with interstitial infection, likely reactive lymph nodes, hepatic steatosis Case discussed with: Patient, records reviewed in [facility] and [facility], including labs and radiology, please see note for summary details. Assessment and Plan: He is a 58-year-old male with stage III lung cancer status post recent chemoradiotherapy currently on durvalumab maintenance admitted with pneumonia, unsure how much is pneumonitis related to durvalumab... Pneumonia: ID has been consulted, I appreciate their assistance, currently on antibiotics, still requiring oxygen History of PE: No current PE, he remains on Xarelto 20 mg daily Diarrhea: C. difficile has been ordered COPD: On nebulizers, did get 1 dose of Solu-Medrol 27 August Diabetes: Per primary Lung cancer: Maintenance chemotherapy on hold, unsure if we will be able to restart it again based on pneumonitis involvement from durvalumab? Appears to be more focal than diffuse, if not having continued improvement tomorrow we'll likely begin prednisone Disposition: After continued improvement Thank you kindly for this consultation, and please don't hesitate to call w/ ?s. Past Medical History Pulmonary: Bronchitis, COPD Heme/Onc: Anemia NOS, Cancer Endocrine: Diabetes Past Surgical History Past Surgical History: No pertinent history Family History Family History: No Significant Social History No ALCOHOL: none Drugs: None Current Medications Current Medications Current Medications Ipratropium [place] (Atrovent) 0.5 mg 1X ONCE NEB Last administered on at 16:05; Start 08/27/18 at 15:45; Stop 08/27/18 at 15:46; Status DC Methylprednisolone Sodium Succinate (SOLU-Medrol 125MG VIAL) 125 mg 1X ONCE IV Last administered on 08/27/18at 15:59; Start 08/27/18 at 15:45; Stop at 15:46; Status DC Iohexol (Omnipaque 300 Mg/ml) 75 ml 1X ONCE IV Last administered on at 15:45; Start 08/27/18 at 15:45; Stop 08/27/18 at 15:46; Status DC Info (CONTRAST GIVEN -- Rx MONITORING) 1 each PRN DAILY PRN MC SEE COMMENTS; Start 08/27/18 at 15:45; Stop 08/29/18 at 15:44 Ceftriaxone Sodium (Rocephin) 1 gm 1X ONCE IVP Last administered on at 18:53; Start 08/27/18 at 18:00; Stop 08/27/18 at 18:01; Status DC Azithromycin 250 ml @ 250 mls/hr 1X ONCE IV ; Start 08/27/18 at 18:00; Stop 08/27/18 at 18:59; Status DC Ondansetron HCl (Zofran) 4 mg PRN Q8HRS PRN IV NAUSEA/VOMITING; Start at 18:15; Stop 08/27/18 at 19:01; Status DC Acetaminophen (Tylenol) 650 mg PRN Q4HRS PRN PO FEVER; Start 08/27/18 at 18:15 ; Stop 08/28/18 at 18:14 Albuterol/ Ipratropium (Duoneb) 3 ml RTQID NEB ; Start 08/27/18 at 20:00; Stop 08/27/18 at 20:00; Status DC Ondansetron HCl (Zofran) 4 mg PRN Q6HRS PRN IV NAUSEA/VOMITING; Start at 19:15 Vancomycin HCl (Vanco Per Pharmacy) 1 each PRN DAILY PRN MC SEE COMMENTS Last administered on 08/27/18at 21:30; Start 08/27/18 at 19:00 Piperacillin Sod/ Tazobactam Sod (Zosyn Per Pharmacy) 1 each PRN DAILY PRN MC SEE COMMENTS; Start 08/27/18 at 19:00 Guaifenesin (Robitussin Dm) 10 ml PRN Q6HRS PRN PO COUGH; Start 08/27/18 at 19 :00 Albuterol/ Ipratropium (Duoneb) 3 ml RTQID NEB Last administered on 08/28/18at 07:55; Start 08/27/18 at 20:00 Diphenhydramine HCl (Benadryl) 25 mg PRN QHS PRN PO INSOMNIA; Start 08/27/18 at 19:00 Sodium Chloride 1,000 ml @ 100 mls/hr 1X ONCE IV Last administered on at 20:11; Start 08/27/18 at 19:15; Stop 08/28/18 at 05:14; Status DC Lisinopril (Prinivil) 10 mg DAILY PO ; Start 08/28/18 at 09:00 Oxycodone/ Acetaminophen (Percocet 5/325) 1 tab PRN Q6HRS PRN PO PAIN Last administered on 08/27/18at 21:19; Start 08/27/18 at 19:15 Budesonide (Pulmicort) 0.5 mg RTBID NEB Last administered on 08/28/18at 07:55; Start 08/27/18 at 20:00 Metformin HCl (Glucophage) 1,000 mg BIDWMEALS PO ; Start 08/29/18 at 17:00 Pantoprazole Sodium (Protonix) 40 mg DAILYAC PO Last administered on at 07:30; Start 08/28/18 at 07:30 Ondansetron HCl (Zofran Odt) 8 mg PRN BID PRN PO NAUSEA/VOMITING; Start at 19:15 Rivaroxaban (Xarelto) 20 mg DAILYWSUP PO ; Start 08/27/18 at 20:00 Insulin Human Lispro (HumaLOG) 0-9 UNITS TIDWMEALS SQ Last administered on 07/05at 21:16; Start 08/27/18 at 19:30 Dextrose (Dextrose 50%-Water Syringe) 12.5 gm PRN Q15MIN PRN IV SEE COMMENTS; Start 08/27/18 at 19:15 Piperacillin Sod/ Tazobactam Sod 4.5 gm/Sodium Chloride 100 ml @ 200 mls/hr Q6HRS IV Last administered on 08/28/18at 06:18; Start 08/27/18 at 19:30 Vancomycin HCl 2 gm/Sodium Chloride 500 ml @ 250 mls/hr 1X ONCE IV Last administered on 08/27/18at 21:10; Start 08/27/18 at 20:00; Stop 08/27/18 at 21 :59; Status DC Sodium Chloride 1,000 ml @ 100 mls/hr Q10H IV ; Start 08/27/18 at 20:30; Stop 08/27/18 at 20:30; Status DC Potassium Chloride/Sodium Chloride 1,000 ml @ 100 mls/hr Q10H IV Last administered on 08/28/18at 06:20; Start 08/27/18 at 20:30 Vancomycin HCl (Vancomycin Trough Level) 1 each 1X ONCE MC ; Start 08/29/18 at 08:30; Stop 08/29/18 at 08:31 Vancomycin HCl 2 gm/Sodium Chloride 500 ml @ 250 mls/hr Q12H IV ; Start at 09:00 Amlodipine Besylate (Norvasc) 5 mg DAILY PO ; Start 08/28/18 at 09:00; Status UNV Non-Formulary Medication (Acetaminophen ) 1 tab BID PO ; Start 08/28/18 at 09: 00; Status UNV Non-Formulary Medication (Edoxaban Tosylate (Savaysa)) 60 mg DAILYWSUP PO ; Start 08/28/18 at 17:00; Status UNV Non-Formulary Medication (Glipizide (Glipizide Er)) 1 tab BID PO ; Start at 09:00; Status UNV Non-Formulary Medication (Levothyroxine Sodium (Synthroid)) 1 tab DAILY07 PO ; Start 08/29/18 at 07:00; Status UNV Active Scripts Active Reported Acetaminophen 500 Mg Tablet 1 Tab PO BID Amlodipine Besylate 5 Mg Tablet 5 Mg PO DAILY Levofloxacin 500 Mg Tablet 1 Tab PO DAILY Savaysa (Edoxaban Tosylate) 60 Mg Tablet 60 Mg PO DAILYWSUP Glipizide Er (Glipizide) 5 Mg Tab.er.24 1 Tab PO BID Synthroid (Levothyroxine Sodium) 50 Mcg Tablet 1 Tab PO DAILY07 Imfinzi (Durvalumab) 120 Mg/2.4 Ml Vial 120 Mg IV Q 2WEEKS PER REGIMEN Percocet 5-325 Mg Tablet (Oxycodone/Acetaminophen) 1 Each Tablet 1 Tab PO PRN Q6HRS PRN Zofran (Ondansetron Hcl) 8 Mg Tablet 8 Mg PO BID PRN Prilosec Otc (Omeprazole Magnesium) 20 Mg Tablet.dr 20 Mg PO BID Symbicort 160-4.5 Mcg Inhaler (Budesonide/Formoterol Fumarate) 10.2 Gm Hfa.aer.ad 2 Puff IH BID Metformin Hcl 1,000 Mg Tablet 1,000 Mg PO BIDWMEALS Allergies Allergies: Coded Allergies: Igqcakl-Lyr-Req Reductase Inhibitor (Verified Allergy, Intermediate, ) atorvastatin (Verified Allergy, Intermediate, Rash, 02/23/18) pravastatin (Verified Allergy, Intermediate, Swelling, 02/23/18) joint area pain Vitals VITALS Vital Signs Date Time Temp Pulse Resp B/P (MAP) Pulse Ox O2 Delivery O2 Flow Rate FiO2 08/28/18 08:15 Nasal Cannula 2.0 08/28/18 07:56 89 08/28/18 07:24 98.2 71 22 111/54 (73) 98.2 Labs Labs Laboratory Tests Test 08/27/18 15:59 08/27/18 16:33 08/27/18 20:30 08/28/18 00:55 White Blood Count 6.6 x10^3/uL (4.0-11.0) Red Blood Count 4.28 x10^6/uL (4.30-5.70) Hemoglobin 13.9 g/dL (13.0-17.5) Hematocrit 40.1 % (39.0-53.0) Mean Corpuscular Volume 94 fL (79-100) Mean Corpuscular Hemoglobin 33 pg (25-35) Mean Corpuscular Hemoglobin Concent 35 g/dL (31-37) Red Cell Distribution Width 16.8 % (11.5-14.5) Platelet Count 218 x10^3/uL (140-400) Neutrophils (%) (Auto) 82 % (31-73) Lymphocytes (%) (Auto) 10 % (24-48) Monocytes (%) (Auto) 6 % (0-9) Eosinophils (%) (Auto) 2 % (0-3) Basophils (%) (Auto) 0 % (0-3) Neutrophils # (Auto) 5.5 x10^3uL (1.8-7.7) Lymphocytes # (Auto) 0.6 x10^3/uL (1.0-4.8) Monocytes # (Auto) 0.4 x10^3/uL (0.0-1.1) Eosinophils # (Auto) 0.1 x10^3/uL (0.0-0.7) Basophils # (Auto) 0.0 x10^3/uL (0.0-0.2) Sodium Level 137 mmol/L (136-145) Potassium Level 3.6 mmol/L (3.5-5.1) Chloride Level 100 mmol/L (98-107) Carbon Dioxide Level 22 mmol/L (21-32) Anion Gap 15 (6-14) Blood Urea Nitrogen 14 mg/dL (8-26) Creatinine 1.2 mg/dL (0.7-1.3) Estimated GFR (Cockcroft-Gault) 62.4 BUN/Creatinine Ratio 12 (6-20) Glucose Level 127 mg/dL (70-99) Calcium Level 9.3 mg/dL (8.5-10.1) Total Bilirubin 0.2 mg/dL (0.2-1.0) Aspartate Amino Transf (AST/SGOT) 27 U/L (15-37) Alanine Aminotransferase (ALT/SGPT) 32 U/L (16-63) Alkaline Phosphatase 70 U/L (46-116) Troponin I Quantitative < 0.017 ng/mL (0.000-0.055) EH-Dzy-N-Type Natriuretic Peptide 21 pg/mL (0-124) Total Protein 7.5 g/dL (6.4-8.2) Albumin 3.7 g/dL (3.4-5.0) Albumin/Globulin Ratio 1.0 (1.0-1.7) Influenza Type A Antigen Negative (NEGATIVE) Influenza Type B Antigen Negative (NEGATIVE) Glucose (Fingerstick) 204 mg/dL (70-99) 186 mg/dL (70-99) Test 08/28/18 08:09 Glucose (Fingerstick) 138 mg/dL (70-99) Laboratory Tests Test 08/27/18 15:59 08/27/18 16:33 08/27/18 20:30 08/28/18 00:55 White Blood Count 6.6 x10^3/uL (4.0-11.0) Red Blood Count 4.28 x10^6/uL (4.30-5.70) Hemoglobin 13.9 g/dL (13.0-17.5) Hematocrit 40.1 % (39.0-53.0) Mean Corpuscular Volume 94 fL (79-100) Mean Corpuscular Hemoglobin 33 pg (25-35) Mean Corpuscular Hemoglobin Concent 35 g/dL (31-37) Red Cell Distribution Width 16.8 % (11.5-14.5) Platelet Count 218 x10^3/uL (140-400) Neutrophils (%) (Auto) 82 % (31-73) Lymphocytes (%) (Auto) 10 % (24-48) Monocytes (%) (Auto) 6 % (0-9) Eosinophils (%) (Auto) 2 % (0-3) Basophils (%) (Auto) 0 % (0-3) Neutrophils # (Auto) 5.5 x10^3uL (1.8-7.7) Lymphocytes # (Auto) 0.6 x10^3/uL (1.0-4.8) Monocytes # (Auto) 0.4 x10^3/uL (0.0-1.1) Eosinophils # (Auto) 0.1 x10^3/uL (0.0-0.7) Basophils # (Auto) 0.0 x10^3/uL (0.0-0.2) Sodium Level 137 mmol/L (136-145) Potassium Level 3.6 mmol/L (3.5-5.1) Chloride Level 100 mmol/L (98-107) Carbon Dioxide Level 22 mmol/L (21-32) Anion Gap 15 (6-14) Blood Urea Nitrogen 14 mg/dL (8-26) Creatinine 1.2 mg/dL (0.7-1.3) Estimated GFR (Cockcroft-Gault) 62.4 BUN/Creatinine Ratio 12 (6-20) Glucose Level 127 mg/dL (70-99) Calcium Level 9.3 mg/dL (8.5-10.1) Total Bilirubin 0.2 mg/dL (0.2-1.0) Aspartate Amino Transf (AST/SGOT) 27 U/L (15-37) Alanine Aminotransferase (ALT/SGPT) 32 U/L (16-63) Alkaline Phosphatase 70 U/L (46-116) Troponin I Quantitative < 0.017 ng/mL (0.000-0.055) CL-Qmq-D-Type Natriuretic Peptide 21 pg/mL (0-124) Total Protein 7.5 g/dL (6.4-8.2) Albumin 3.7 g/dL (3.4-5.0) Albumin/Globulin Ratio 1.0 (1.0-1.7) Influenza Type A Antigen Negative (NEGATIVE) Influenza Type B Antigen Negative (NEGATIVE) Glucose (Fingerstick) 204 mg/dL (70-99) 186 mg/dL (70-99) Test 08/28/18 08:09 Glucose (Fingerstick) 138 mg/dL (70-99) JAY MELGAR MD Aug 28, 2018 08:46
[2018-08-28] MEDS ORDERED: LISINOPRIL 10 MG TABLET PO SCH (09:00)
[2018-08-28 09:01] LABS: BASO % 0 % (0-3); EOS % 0 % (0-3); HEMATOCRIT 40.3 % (39.0-53.0); HEMOGLOBIN 13.7 g/dL (13.0-17.5); LYMPH # 0.5 x10^3/uL (1.0-4.8); LYMPH % 7 % (24-48); MEAN CORPUSCULAR HEMOGLOBIN 32 pg (25-35); MEAN CORPUSCULAR HGB CONC 34 g/dL (31-37); MEAN CORPUSCULAR VOLUME 94 fL (79-100); MONO # 0.3 x10^3/uL (0.0-1.1); MONO % 5 % (0-9); NEUT # 5.7 x10^3uL (1.8-7.7); NEUT % 88 % (31-73); PLATELET COUNT 228 x10^3/uL (140-400); RED BLOOD COUNT 4.29 x10^6/uL (4.30-5.70); RED CELL DISTRIBUTION WIDTH 16.8 % (11.5-14.5); WHITE BLOOD COUNT 6.5 x10^3/uL (4.0-11.0)
[2018-08-28 09:07] LABS: CALCIUM 9.2 mg/dL (8.5-10.1); CREATININE 1.1 mg/dL (0.7-1.3); POTASSIUM 3.8 mmol/L (3.5-5.1)
[2018-08-28] MEDS: LEVOTHYROXINE 50 MCG TABLET PO SCH (09:31)
[2018-08-28] MEDS: glipiZIDE ER 2.5 MG TAB.ER.24 PO SCH ×2 (09:31→16:25)
[2018-08-28] MEDS: amLODIPine BESYLATE 5 MG TABLET PO SCH (09:32)
[2018-08-28] MEDS: VANCOMYCIN 2 GM in IV NORMAL SALINE 500ML BAG 500 ML IV SCH ×2 (09:32→21:02)
[2018-08-28] MEDS: ACETAMINOPHEN 500 MG TABLET PO SCH ×2 (09:36→21:03)
[2018-08-28 10:39] LABS: % BANDS 6 % (0-9); % LYMPHS 5 % (24-48); % MONOS 4 % (0-10); % OTHERS 10 % (0-0); % SEGS 75 % (35-66)
[2018-08-28 10:43] LABS: ANISOCYTOSIS SLIGHT; PLT ESTIMATE ADEQUATE (ADEQUATE)
[2018-08-28 10:54] VITALS: BP 117/80
--- NOTE | 2018-08-28 13:57 | PDOC ---
Infectious Disease Note Subjective: Subjective Pt seen and examined full consult to follow ROS: ROS Negative except for above. Vital Signs: Vital Signs Vital Signs Date Time Temp Pulse Resp B/P (MAP) Pulse Ox O2 Delivery O2 Flow Rate FiO2 08/28/18 11:32 Nasal Cannula 3.0 08/28/18 10:54 98.1 82 20 117/80 (92) 94 98.1 Medications: Inpatient Meds: Current Medications Medications (Trade) Dose Ordered Sig/Christina Start Time Stop Time Status Last Admin Dose Admin Acetaminophen (Tylenol) 500 mg BID 08/28/18 09:00 08/28/18 09:36 500 MG Albuterol/ Ipratropium (Duoneb) 3 ml RTQID 08/27/18 20:00 08/28/18 11:31 3 ML Amlodipine Besylate (Norvasc) 5 mg DAILY 08/28/18 09:00 08/28/18 09:32 5 MG Azithromycin 250 ml @ 250 mls/hr 1X ONCE 08/27/18 18:00 08/27/18 18:59 DC Budesonide (Pulmicort) 0.5 mg RTBID 08/27/18 20:00 08/28/18 07:55 0.5 MG Ceftriaxone Sodium (Rocephin) 1 gm 1X ONCE 08/27/18 18:00 08/27/18 18:01 DC 08/27/18 18:53 1 GM Dextrose (Dextrose 50%-Water Syringe) 12.5 gm PRN Q15MIN PRN 08/27/18 19:15 Diphenhydramine HCl (Benadryl) 25 mg PRN QHS PRN 08/27/18 19:00 Glipizide (Glucotrol Er) 5 mg BIDAC 08/28/18 09:00 08/28/18 09:31 5 MG Guaifenesin (Robitussin Dm) 10 ml PRN Q6HRS PRN 08/27/18 19:00 Info (CONTRAST GIVEN -- Rx MONITORING) 1 each PRN DAILY PRN 08/27/18 15:45 08/29/18 15:44 Insulin Human Lispro (HumaLOG) 0-9 UNITS TIDWMEALS 08/27/18 19:30 08/28/18 12:49 4 UNITS Iohexol (Omnipaque 300 Mg/ml) 75 ml 1X ONCE 08/27/18 15:45 08/27/18 15:46 DC 08/27/18 15:45 100 ML Ipratropium [place] (Atrovent) 0.5 mg 1X ONCE 08/27/18 15:45 08/27/18 15:46 DC 08/27/18 16:05 0.5 MG Levothyroxine Sodium (Synthroid) 50 mcg DAILY06 08/28/18 10:30 08/28/18 09:31 50 MCG Lisinopril (Prinivil) 10 mg DAILY 08/28/18 09:00 08/28/18 09:47 DC Metformin HCl (Glucophage) 1,000 mg BIDWMEALS 08/29/18 17:00 Methylprednisolone Sodium Succinate (SOLU-Medrol 125MG VIAL) 125 mg 1X ONCE 08/27/18 15:45 08/27/18 15:46 DC 08/27/18 15:59 125 MG Non-Formulary Medication (Edoxaban Tosylate (Savaysa)) 60 mg DAILYWSUP 08/28/18 17:00 Ondansetron HCl (Zofran Odt) 8 mg PRN BID PRN 08/27/18 19:15 Ondansetron HCl (Zofran) 4 mg PRN Q6HRS PRN 08/27/18 19:15 Oxycodone/ Acetaminophen (Percocet 5/325) 1 tab PRN Q6HRS PRN 08/27/18 19:15 08/27/18 21:19 1 TAB Pantoprazole Sodium (Protonix) 40 mg DAILYAC 08/28/18 07:30 08/28/18 07:30 40 MG Piperacillin Sod/ Tazobactam Sod (Zosyn Per Pharmacy) 1 each PRN DAILY PRN 08/27/18 19:00 Piperacillin Sod/ Tazobactam Sod 4.5 gm/Sodium Chloride 100 ml @ 200 mls/hr Q6HRS 08/27/18 19:30 08/28/18 12:48 200 MLS/HR Potassium Chloride/Sodium Chloride 1,000 ml @ 100 mls/hr Q10H 08/27/18 20:30 08/28/18 06:20 100 MLS/HR Rivaroxaban (Xarelto) 20 mg DAILYWSUP 08/27/18 20:00 08/28/18 13:15 DC Sodium Chloride 1,000 ml @ 100 mls/hr Q10H 08/27/18 20:30 08/27/18 20:30 DC Vancomycin HCl (Vanco Per Pharmacy) 1 each PRN DAILY PRN 08/27/18 19:00 08/27/18 21:30 1 EACH Vancomycin HCl (Vancomycin Trough Level) 1 each 1X ONCE 08/29/18 08:30 08/29/18 08:31 Vancomycin HCl 2 gm/Sodium Chloride 500 ml @ 250 mls/hr Q12H 08/28/18 09:00 08/28/18 09:32 250 MLS/HR Labs: Lab Laboratory Tests Test 08/27/18 15:59 08/27/18 16:33 08/27/18 20:30 08/28/18 00:55 White Blood Count 6.6 x10^3/uL (4.0-11.0) Red Blood Count 4.28 x10^6/uL (4.30-5.70) Hemoglobin 13.9 g/dL (13.0-17.5) Hematocrit 40.1 % (39.0-53.0) Mean Corpuscular Volume 94 fL (79-100) Mean Corpuscular Hemoglobin 33 pg (25-35) Mean Corpuscular Hemoglobin Concent 35 g/dL (31-37) Red Cell Distribution Width 16.8 % (11.5-14.5) Platelet Count 218 x10^3/uL (140-400) Neutrophils (%) (Auto) 82 % (31-73) Lymphocytes (%) (Auto) 10 % (24-48) Monocytes (%) (Auto) 6 % (0-9) Eosinophils (%) (Auto) 2 % (0-3) Basophils (%) (Auto) 0 % (0-3) Neutrophils # (Auto) 5.5 x10^3uL (1.8-7.7) Lymphocytes # (Auto) 0.6 x10^3/uL (1.0-4.8) Monocytes # (Auto) 0.4 x10^3/uL (0.0-1.1) Eosinophils # (Auto) 0.1 x10^3/uL (0.0-0.7) Basophils # (Auto) 0.0 x10^3/uL (0.0-0.2) Sodium Level 137 mmol/L (136-145) Potassium Level 3.6 mmol/L (3.5-5.1) Chloride Level 100 mmol/L (98-107) Carbon Dioxide Level 22 mmol/L (21-32) Anion Gap 15 (6-14) Blood Urea Nitrogen 14 mg/dL (8-26) Creatinine 1.2 mg/dL (0.7-1.3) Estimated GFR (Cockcroft-Gault) 62.4 BUN/Creatinine Ratio 12 (6-20) Glucose Level 127 mg/dL (70-99) Calcium Level 9.3 mg/dL (8.5-10.1) Total Bilirubin 0.2 mg/dL (0.2-1.0) Aspartate Amino Transf (AST/SGOT) 27 U/L (15-37) Alanine Aminotransferase (ALT/SGPT) 32 U/L (16-63) Alkaline Phosphatase 70 U/L (46-116) Troponin I Quantitative < 0.017 ng/mL (0.000-0.055) FF-Npu-R-Type Natriuretic Peptide 21 pg/mL (0-124) Total Protein 7.5 g/dL (6.4-8.2) Albumin 3.7 g/dL (3.4-5.0) Albumin/Globulin Ratio 1.0 (1.0-1.7) Influenza Type A Antigen Negative (NEGATIVE) Influenza Type B Antigen Negative (NEGATIVE) Glucose (Fingerstick) 204 mg/dL (70-99) 186 mg/dL (70-99) Test 08/28/18 08:09 08/28/18 08:25 08/28/18 11:34 Glucose (Fingerstick) 138 mg/dL (70-99) 191 mg/dL (70-99) White Blood Count 6.5 x10^3/uL (4.0-11.0) Red Blood Count 4.29 x10^6/uL (4.30-5.70) Hemoglobin 13.7 g/dL (13.0-17.5) Hematocrit 40.3 % (39.0-53.0) Mean Corpuscular Volume 94 fL (79-100) Mean Corpuscular Hemoglobin 32 pg (25-35) Mean Corpuscular Hemoglobin Concent 34 g/dL (31-37) Red Cell Distribution Width 16.8 % (11.5-14.5) Platelet Count 228 x10^3/uL (140-400) Neutrophils (%) (Auto) 88 % (31-73) Lymphocytes (%) (Auto) 7 % (24-48) Monocytes (%) (Auto) 5 % (0-9) Eosinophils (%) (Auto) 0 % (0-3) Basophils (%) (Auto) 0 % (0-3) Neutrophils # (Auto) 5.7 x10^3uL (1.8-7.7) Lymphocytes # (Auto) 0.5 x10^3/uL (1.0-4.8) Monocytes # (Auto) 0.3 x10^3/uL (0.0-1.1) Eosinophils # (Auto) 0.0 x10^3/uL (0.0-0.7) Basophils # (Auto) 0.0 x10^3/uL (0.0-0.2) Segmented Neutrophils % 75 % (35-66) Band Neutrophils % 6 % (0-9) Lymphocytes % 5 % (24-48) Monocytes % 4 % (0-10) Other Cells % 10 % (0-0) Platelet Estimate Adequate (ADEQUATE) Large Platelets Occ Anisocytosis Slight Sodium Level 139 mmol/L (136-145) Potassium Level 3.8 mmol/L (3.5-5.1) Chloride Level 101 mmol/L (98-107) Carbon Dioxide Level 25 mmol/L (21-32) Anion Gap 13 (6-14) Blood Urea Nitrogen 11 mg/dL (8-26) Creatinine 1.1 mg/dL (0.7-1.3) Estimated GFR (Cockcroft-Gault) 69.0 Glucose Level 158 mg/dL (70-99) Calcium Level 9.2 mg/dL (8.5-10.1) Objective: Assessment: Acute hypoxic resp failure Immunosupression Lung ca s/p CT and RT on immunotherapy Pneumonia ? infectious vs noninfectious immunotherpy induced vs radiation pneumonitis ,failed outpt levaquin DM LILIA Plan: Plan of Care Cont IV Vanc and Zosyn add empiric doxycycline add empiric RVP sputum c/s Urine legionella and strep pneu ag Urine histo ag,crypto ag Consider Pulm consult for bronchoscopy Thank you [phone] LIS MARTE MD Aug 28, 2018 13:57
--- NOTE | 2018-08-28 14:00 | PDOC ---
PROGRESS NOTES Chief Complaint Chief Complaint sepsis Pneumonia right sided, acute hypoxic respiratory failure, POA [place] lung, status post chemotherapy and radiation therapy May 2018 History of Present Illness History of Present Illness cont Broad-spectrum antibiotics, ID following he feels better taper 02 heme onc follwoing cont the home meds + Scale insulin left Port-A-Cath Vitals Vitals Vital Signs Date Time Temp Pulse Resp B/P (MAP) Pulse Ox O2 Delivery O2 Flow Rate FiO2 08/28/18 11:32 Nasal Cannula 3.0 08/28/18 10:54 98.1 82 20 117/80 (92) 94 98.1 Physical Exam General: Alert, Oriented X3, Cooperative, No acute distress Abdomen: Soft, No tenderness, No hepatosplenomegaly, No masses, Other (hyper active bowel sounds) Extremities: No clubbing, No cyanosis, No edema, Normal pulses, No tenderness/ swelling Skin: No rashes, No breakdown, No significant lesion Labs LABS Laboratory Tests Test 08/27/18 15:59 08/27/18 16:33 08/27/18 20:30 08/28/18 00:55 White Blood Count 6.6 x10^3/uL (4.0-11.0) Red Blood Count 4.28 x10^6/uL (4.30-5.70) Hemoglobin 13.9 g/dL (13.0-17.5) Hematocrit 40.1 % (39.0-53.0) Mean Corpuscular Volume 94 fL (79-100) Mean Corpuscular Hemoglobin 33 pg (25-35) Mean Corpuscular Hemoglobin Concent 35 g/dL (31-37) Red Cell Distribution Width 16.8 % (11.5-14.5) Platelet Count 218 x10^3/uL (140-400) Neutrophils (%) (Auto) 82 % (31-73) Lymphocytes (%) (Auto) 10 % (24-48) Monocytes (%) (Auto) 6 % (0-9) Eosinophils (%) (Auto) 2 % (0-3) Basophils (%) (Auto) 0 % (0-3) Neutrophils # (Auto) 5.5 x10^3uL (1.8-7.7) Lymphocytes # (Auto) 0.6 x10^3/uL (1.0-4.8) Monocytes # (Auto) 0.4 x10^3/uL (0.0-1.1) Eosinophils # (Auto) 0.1 x10^3/uL (0.0-0.7) Basophils # (Auto) 0.0 x10^3/uL (0.0-0.2) Sodium Level 137 mmol/L (136-145) Potassium Level 3.6 mmol/L (3.5-5.1) Chloride Level 100 mmol/L (98-107) Carbon Dioxide Level 22 mmol/L (21-32) Anion Gap 15 (6-14) Blood Urea Nitrogen 14 mg/dL (8-26) Creatinine 1.2 mg/dL (0.7-1.3) Estimated GFR (Cockcroft-Gault) 62.4 BUN/Creatinine Ratio 12 (6-20) Glucose Level 127 mg/dL (70-99) Calcium Level 9.3 mg/dL (8.5-10.1) Total Bilirubin 0.2 mg/dL (0.2-1.0) Aspartate Amino Transf (AST/SGOT) 27 U/L (15-37) Alanine Aminotransferase (ALT/SGPT) 32 U/L (16-63) Alkaline Phosphatase 70 U/L (46-116) Troponin I Quantitative < 0.017 ng/mL (0.000-0.055) FJ-Esq-C-Type Natriuretic Peptide 21 pg/mL (0-124) Total Protein 7.5 g/dL (6.4-8.2) Albumin 3.7 g/dL (3.4-5.0) Albumin/Globulin Ratio 1.0 (1.0-1.7) Influenza Type A Antigen Negative (NEGATIVE) Influenza Type B Antigen Negative (NEGATIVE) Glucose (Fingerstick) 204 mg/dL (70-99) 186 mg/dL (70-99) Test 08/28/18 08:09 08/28/18 08:25 08/28/18 11:34 Glucose (Fingerstick) 138 mg/dL (70-99) 191 mg/dL (70-99) White Blood Count 6.5 x10^3/uL (4.0-11.0) Red Blood Count 4.29 x10^6/uL (4.30-5.70) Hemoglobin 13.7 g/dL (13.0-17.5) Hematocrit 40.3 % (39.0-53.0) Mean Corpuscular Volume 94 fL (79-100) Mean Corpuscular Hemoglobin 32 pg (25-35) Mean Corpuscular Hemoglobin Concent 34 g/dL (31-37) Red Cell Distribution Width 16.8 % (11.5-14.5) Platelet Count 228 x10^3/uL (140-400) Neutrophils (%) (Auto) 88 % (31-73) Lymphocytes (%) (Auto) 7 % (24-48) Monocytes (%) (Auto) 5 % (0-9) Eosinophils (%) (Auto) 0 % (0-3) Basophils (%) (Auto) 0 % (0-3) Neutrophils # (Auto) 5.7 x10^3uL (1.8-7.7) Lymphocytes # (Auto) 0.5 x10^3/uL (1.0-4.8) Monocytes # (Auto) 0.3 x10^3/uL (0.0-1.1) Eosinophils # (Auto) 0.0 x10^3/uL (0.0-0.7) Basophils # (Auto) 0.0 x10^3/uL (0.0-0.2) Segmented Neutrophils % 75 % (35-66) Band Neutrophils % 6 % (0-9) Lymphocytes % 5 % (24-48) Monocytes % 4 % (0-10) Other Cells % 10 % (0-0) Platelet Estimate Adequate (ADEQUATE) Large Platelets Occ Anisocytosis Slight Sodium Level 139 mmol/L (136-145) Potassium Level 3.8 mmol/L (3.5-5.1) Chloride Level 101 mmol/L (98-107) Carbon Dioxide Level 25 mmol/L (21-32) Anion Gap 13 (6-14) Blood Urea Nitrogen 11 mg/dL (8-26) Creatinine 1.1 mg/dL (0.7-1.3) Estimated GFR (Cockcroft-Gault) 69.0 Glucose Level 158 mg/dL (70-99) Calcium Level 9.2 mg/dL (8.5-10.1) Comment Review of Relevant I have reviewed the following items krupa (where applicable) has been applied. Labs Laboratory Tests Test 08/27/18 15:59 08/27/18 16:33 08/27/18 20:30 08/28/18 00:55 White Blood Count 6.6 x10^3/uL (4.0-11.0) Red Blood Count 4.28 x10^6/uL (4.30-5.70) Hemoglobin 13.9 g/dL (13.0-17.5) Hematocrit 40.1 % (39.0-53.0) Mean Corpuscular Volume 94 fL (79-100) Mean Corpuscular Hemoglobin 33 pg (25-35) Mean Corpuscular Hemoglobin Concent 35 g/dL (31-37) Red Cell Distribution Width 16.8 % (11.5-14.5) Platelet Count 218 x10^3/uL (140-400) Neutrophils (%) (Auto) 82 % (31-73) Lymphocytes (%) (Auto) 10 % (24-48) Monocytes (%) (Auto) 6 % (0-9) Eosinophils (%) (Auto) 2 % (0-3) Basophils (%) (Auto) 0 % (0-3) Neutrophils # (Auto) 5.5 x10^3uL (1.8-7.7) Lymphocytes # (Auto) 0.6 x10^3/uL (1.0-4.8) Monocytes # (Auto) 0.4 x10^3/uL (0.0-1.1) Eosinophils # (Auto) 0.1 x10^3/uL (0.0-0.7) Basophils # (Auto) 0.0 x10^3/uL (0.0-0.2) Sodium Level 137 mmol/L (136-145) Potassium Level 3.6 mmol/L (3.5-5.1) Chloride Level 100 mmol/L (98-107) Carbon Dioxide Level 22 mmol/L (21-32) Anion Gap 15 (6-14) Blood Urea Nitrogen 14 mg/dL (8-26) Creatinine 1.2 mg/dL (0.7-1.3) Estimated GFR (Cockcroft-Gault) 62.4 BUN/Creatinine Ratio 12 (6-20) Glucose Level 127 mg/dL (70-99) Calcium Level 9.3 mg/dL (8.5-10.1) Total Bilirubin 0.2 mg/dL (0.2-1.0) Aspartate Amino Transf (AST/SGOT) 27 U/L (15-37) Alanine Aminotransferase (ALT/SGPT) 32 U/L (16-63) Alkaline Phosphatase 70 U/L (46-116) Troponin I Quantitative < 0.017 ng/mL (0.000-0.055) QM-Ong-Z-Type Natriuretic Peptide 21 pg/mL (0-124) Total Protein 7.5 g/dL (6.4-8.2) Albumin 3.7 g/dL (3.4-5.0) Albumin/Globulin Ratio 1.0 (1.0-1.7) Influenza Type A Antigen Negative (NEGATIVE) Influenza Type B Antigen Negative (NEGATIVE) Glucose (Fingerstick) 204 mg/dL (70-99) 186 mg/dL (70-99) Test 08/28/18 08:09 08/28/18 08:25 08/28/18 11:34 Glucose (Fingerstick) 138 mg/dL (70-99) 191 mg/dL (70-99) White Blood Count 6.5 x10^3/uL (4.0-11.0) Red Blood Count 4.29 x10^6/uL (4.30-5.70) Hemoglobin 13.7 g/dL (13.0-17.5) Hematocrit 40.3 % (39.0-53.0) Mean Corpuscular Volume 94 fL (79-100) Mean Corpuscular Hemoglobin 32 pg (25-35) Mean Corpuscular Hemoglobin Concent 34 g/dL (31-37) Red Cell Distribution Width 16.8 % (11.5-14.5) Platelet Count 228 x10^3/uL (140-400) Neutrophils (%) (Auto) 88 % (31-73) Lymphocytes (%) (Auto) 7 % (24-48) Monocytes (%) (Auto) 5 % (0-9) Eosinophils (%) (Auto) 0 % (0-3) Basophils (%) (Auto) 0 % (0-3) Neutrophils # (Auto) 5.7 x10^3uL (1.8-7.7) Lymphocytes # (Auto) 0.5 x10^3/uL (1.0-4.8) Monocytes # (Auto) 0.3 x10^3/uL (0.0-1.1) Eosinophils # (Auto) 0.0 x10^3/uL (0.0-0.7) Basophils # (Auto) 0.0 x10^3/uL (0.0-0.2) Segmented Neutrophils % 75 % (35-66) Band Neutrophils % 6 % (0-9) Lymphocytes % 5 % (24-48) Monocytes % 4 % (0-10) Other Cells % 10 % (0-0) Platelet Estimate Adequate (ADEQUATE) Large Platelets Occ Anisocytosis Slight Sodium Level 139 mmol/L (136-145) Potassium Level 3.8 mmol/L (3.5-5.1) Chloride Level 101 mmol/L (98-107) Carbon Dioxide Level 25 mmol/L (21-32) Anion Gap 13 (6-14) Blood Urea Nitrogen 11 mg/dL (8-26) Creatinine 1.1 mg/dL (0.7-1.3) Estimated GFR (Cockcroft-Gault) 69.0 Glucose Level 158 mg/dL (70-99) Calcium Level 9.2 mg/dL (8.5-10.1) Laboratory Tests Test 08/27/18 15:59 08/27/18 16:33 08/27/18 20:30 08/28/18 00:55 White Blood Count 6.6 x10^3/uL (4.0-11.0) Red Blood Count 4.28 x10^6/uL (4.30-5.70) Hemoglobin 13.9 g/dL (13.0-17.5) Hematocrit 40.1 % (39.0-53.0) Mean Corpuscular Volume 94 fL (79-100) Mean Corpuscular Hemoglobin 33 pg (25-35) Mean Corpuscular Hemoglobin Concent 35 g/dL (31-37) Red Cell Distribution Width 16.8 % (11.5-14.5) Platelet Count 218 x10^3/uL (140-400) Neutrophils (%) (Auto) 82 % (31-73) Lymphocytes (%) (Auto) 10 % (24-48) Monocytes (%) (Auto) 6 % (0-9) Eosinophils (%) (Auto) 2 % (0-3) Basophils (%) (Auto) 0 % (0-3) Neutrophils # (Auto) 5.5 x10^3uL (1.8-7.7) Lymphocytes # (Auto) 0.6 x10^3/uL (1.0-4.8) Monocytes # (Auto) 0.4 x10^3/uL (0.0-1.1) Eosinophils # (Auto) 0.1 x10^3/uL (0.0-0.7) Basophils # (Auto) 0.0 x10^3/uL (0.0-0.2) Sodium Level 137 mmol/L (136-145) Potassium Level 3.6 mmol/L (3.5-5.1) Chloride Level 100 mmol/L (98-107) Carbon Dioxide Level 22 mmol/L (21-32) Anion Gap 15 (6-14) Blood Urea Nitrogen 14 mg/dL (8-26) Creatinine 1.2 mg/dL (0.7-1.3) Estimated GFR (Cockcroft-Gault) 62.4 BUN/Creatinine Ratio 12 (6-20) Glucose Level 127 mg/dL (70-99) Calcium Level 9.3 mg/dL (8.5-10.1) Total Bilirubin 0.2 mg/dL (0.2-1.0) Aspartate Amino Transf (AST/SGOT) 27 U/L (15-37) Alanine Aminotransferase (ALT/SGPT) 32 U/L (16-63) Alkaline Phosphatase 70 U/L (46-116) Troponin I Quantitative < 0.017 ng/mL (0.000-0.055) UU-Obz-F-Type Natriuretic Peptide 21 pg/mL (0-124) Total Protein 7.5 g/dL (6.4-8.2) Albumin 3.7 g/dL (3.4-5.0) Albumin/Globulin Ratio 1.0 (1.0-1.7) Influenza Type A Antigen Negative (NEGATIVE) Influenza Type B Antigen Negative (NEGATIVE) Glucose (Fingerstick) 204 mg/dL (70-99) 186 mg/dL (70-99) Test 08/28/18 08:09 08/28/18 08:25 08/28/18 11:34 Glucose (Fingerstick) 138 mg/dL (70-99) 191 mg/dL (70-99) White Blood Count 6.5 x10^3/uL (4.0-11.0) Red Blood Count 4.29 x10^6/uL (4.30-5.70) Hemoglobin 13.7 g/dL (13.0-17.5) Hematocrit 40.3 % (39.0-53.0) Mean Corpuscular Volume 94 fL (79-100) Mean Corpuscular Hemoglobin 32 pg (25-35) Mean Corpuscular Hemoglobin Concent 34 g/dL (31-37) Red Cell Distribution Width 16.8 % (11.5-14.5) Platelet Count 228 x10^3/uL (140-400) Neutrophils (%) (Auto) 88 % (31-73) Lymphocytes (%) (Auto) 7 % (24-48) Monocytes (%) (Auto) 5 % (0-9) Eosinophils (%) (Auto) 0 % (0-3) Basophils (%) (Auto) 0 % (0-3) Neutrophils # (Auto) 5.7 x10^3uL (1.8-7.7) Lymphocytes # (Auto) 0.5 x10^3/uL (1.0-4.8) Monocytes # (Auto) 0.3 x10^3/uL (0.0-1.1) Eosinophils # (Auto) 0.0 x10^3/uL (0.0-0.7) Basophils # (Auto) 0.0 x10^3/uL (0.0-0.2) Segmented Neutrophils % 75 % (35-66) Band Neutrophils % 6 % (0-9) Lymphocytes % 5 % (24-48) Monocytes % 4 % (0-10) Other Cells % 10 % (0-0) Platelet Estimate Adequate (ADEQUATE) Large Platelets Occ Anisocytosis Slight Sodium Level 139 mmol/L (136-145) Potassium Level 3.8 mmol/L (3.5-5.1) Chloride Level 101 mmol/L (98-107) Carbon Dioxide Level 25 mmol/L (21-32) Anion Gap 13 (6-14) Blood Urea Nitrogen 11 mg/dL (8-26) Creatinine 1.1 mg/dL (0.7-1.3) Estimated GFR (Cockcroft-Gault) 69.0 Glucose Level 158 mg/dL (70-99) Calcium Level 9.2 mg/dL (8.5-10.1) Medications Current Medications Ipratropium [place] (Atrovent) 0.5 mg 1X ONCE NEB Last administered on at 16:05; Start 08/27/18 at 15:45; Stop 08/27/18 at 15:46; Status DC Methylprednisolone Sodium Succinate (SOLU-Medrol 125MG VIAL) 125 mg 1X ONCE IV Last administered on 08/27/18at 15:59; Start 08/27/18 at 15:45; Stop at 15:46; Status DC Iohexol (Omnipaque 300 Mg/ml) 75 ml 1X ONCE IV Last administered on at 15:45; Start 08/27/18 at 15:45; Stop 08/27/18 at 15:46; Status DC Info (CONTRAST GIVEN -- Rx MONITORING) 1 each PRN DAILY PRN MC SEE COMMENTS; Start 08/27/18 at 15:45; Stop 08/29/18 at 15:44 Ceftriaxone Sodium (Rocephin) 1 gm 1X ONCE IVP Last administered on at 18:53; Start 08/27/18 at 18:00; Stop 08/27/18 at 18:01; Status DC Azithromycin 250 ml @ 250 mls/hr 1X ONCE IV ; Start 08/27/18 at 18:00; Stop 08/27/18 at 18:59; Status DC Ondansetron HCl (Zofran) 4 mg PRN Q8HRS PRN IV NAUSEA/VOMITING; Start at 18:15; Stop 08/27/18 at 19:01; Status DC Acetaminophen (Tylenol) 650 mg PRN Q4HRS PRN PO FEVER Last administered on 08/05at 09:31; Start 08/27/18 at 18:15; Stop 08/28/18 at 18:14 Albuterol/ Ipratropium (Duoneb) 3 ml RTQID NEB ; Start 08/27/18 at 20:00; Stop 08/27/18 at 20:00; Status DC Ondansetron HCl (Zofran) 4 mg PRN Q6HRS PRN IV NAUSEA/VOMITING; Start at 19:15 Vancomycin HCl (Vanco Per Pharmacy) 1 each PRN DAILY PRN MC SEE COMMENTS Last administered on 08/27/18at 21:30; Start 08/27/18 at 19:00 Piperacillin Sod/ Tazobactam Sod (Zosyn Per Pharmacy) 1 each PRN DAILY PRN MC SEE COMMENTS; Start 08/27/18 at 19:00 Guaifenesin (Robitussin Dm) 10 ml PRN Q6HRS PRN PO COUGH; Start 08/27/18 at 19 :00 Albuterol/ Ipratropium (Duoneb) 3 ml RTQID NEB Last administered on 08/28/18at 11:31; Start 08/27/18 at 20:00 Diphenhydramine HCl (Benadryl) 25 mg PRN QHS PRN PO INSOMNIA; Start 08/27/18 at 19:00 Sodium Chloride 1,000 ml @ 100 mls/hr 1X ONCE IV Last administered on at 20:11; Start 08/27/18 at 19:15; Stop 08/28/18 at 05:14; Status DC Lisinopril (Prinivil) 10 mg DAILY PO ; Start 08/28/18 at 09:00; Stop 08/28/18 at 09:47; Status DC Oxycodone/ Acetaminophen (Percocet 5/325) 1 tab PRN Q6HRS PRN PO PAIN Last administered on 08/27/18at 21:19; Start 08/27/18 at 19:15 Budesonide (Pulmicort) 0.5 mg RTBID NEB Last administered on 08/28/18at 07:55; Start 08/27/18 at 20:00 Metformin HCl (Glucophage) 1,000 mg BIDWMEALS PO ; Start 08/29/18 at 17:00 Pantoprazole Sodium (Protonix) 40 mg DAILYAC PO Last administered on at 07:30; Start 08/28/18 at 07:30 Ondansetron HCl (Zofran Odt) 8 mg PRN BID PRN PO NAUSEA/VOMITING; Start at 19:15 Rivaroxaban (Xarelto) 20 mg DAILYWSUP PO ; Start 08/27/18 at 20:00; Stop 08/28 at 13:15; Status DC Insulin Human Lispro (HumaLOG) 0-9 UNITS TIDWMEALS SQ Last administered on 08/05at 12:49; Start 08/27/18 at 19:30 Dextrose (Dextrose 50%-Water Syringe) 12.5 gm PRN Q15MIN PRN IV SEE COMMENTS; Start 08/27/18 at 19:15 Piperacillin Sod/ Tazobactam Sod 4.5 gm/Sodium Chloride 100 ml @ 200 mls/hr Q6HRS IV Last administered on 08/28/18at 12:48; Start 08/27/18 at 19:30 Vancomycin HCl 2 gm/Sodium Chloride 500 ml @ 250 mls/hr 1X ONCE IV Last administered on 08/27/18at 21:10; Start 08/27/18 at 20:00; Stop 08/27/18 at 21 :59; Status DC Sodium Chloride 1,000 ml @ 100 mls/hr Q10H IV ; Start 08/27/18 at 20:30; Stop 08/27/18 at 20:30; Status DC Potassium Chloride/Sodium Chloride 1,000 ml @ 100 mls/hr Q10H IV Last administered on 08/28/18at 06:20; Start 08/27/18 at 20:30 Vancomycin HCl (Vancomycin Trough Level) 1 each 1X ONCE MC ; Start 08/29/18 at 08:30; Stop 08/29/18 at 08:31 Vancomycin HCl 2 gm/Sodium Chloride 500 ml @ 250 mls/hr Q12H IV Last administered on 08/28/18at 09:32; Start 08/28/18 at 09:00 Amlodipine Besylate (Norvasc) 5 mg DAILY PO Last administered on 08/28/18at 09: 32; Start 08/28/18 at 09:00 Acetaminophen (Tylenol) 500 mg BID PO Last administered on 08/28/18at 09:36; Start 08/28/18 at 09:00 Non-Formulary Medication (Edoxaban Tosylate (Savaysa)) 60 mg DAILYWSUP PO ; Start 08/28/18 at 17:00; Status UNV Glipizide (Glucotrol Er) 5 mg BIDAC PO Last administered on 08/28/18at 09:31; Start 08/28/18 at 09:00 Levothyroxine Sodium (Synthroid) 50 mcg DAILY06 PO Last administered on at 09:31; Start 08/28/18 at 10:30 Non-Formulary Medication (Edoxaban Tosylate (Savaysa)) 60 mg DAILYWSUP PO ; Start 08/28/18 at 17:00 Doxycycline Hyclate (Vibra-Tab) 100 mg BID PO ; Start 08/28/18 at 21:00; Status UNV Active Scripts Active Reported Acetaminophen 500 Mg Tablet 1 Tab PO BID Amlodipine Besylate 5 Mg Tablet 5 Mg PO DAILY Levofloxacin 500 Mg Tablet 1 Tab PO DAILY Savaysa (Edoxaban Tosylate) 60 Mg Tablet 60 Mg PO DAILYWSUP Glipizide Er (Glipizide) 5 Mg Tab.er.24 1 Tab PO BID Synthroid (Levothyroxine Sodium) 50 Mcg Tablet 1 Tab PO DAILY07 Imfinzi (Durvalumab) 120 Mg/2.4 Ml Vial 120 Mg IV Q 2WEEKS PER REGIMEN Percocet 5-325 Mg Tablet (Oxycodone/Acetaminophen) 1 Each Tablet 1 Tab PO PRN Q6HRS PRN Zofran (Ondansetron Hcl) 8 Mg Tablet 8 Mg PO BID PRN Prilosec Otc (Omeprazole Magnesium) 20 Mg Tablet.dr 20 Mg PO BID Symbicort 160-4.5 Mcg Inhaler (Budesonide/Formoterol Fumarate) 10.2 Gm Hfa.aer.ad 2 Puff IH BID Metformin Hcl 1,000 Mg Tablet 1,000 Mg PO BIDWMEALS Vitals/I & O Vital Sign - Last 24 Hours 08/27/18 08/27/18 08/27/18 08/27/18 15:38 16:07 19:15 19:47 Temp 98.0 98.0 Pulse 103 Resp 24 B/P (MAP) 136/98 (111) Pulse Ox 94 95 93 O2 Delivery Nasal Cannula Nasal Cannula Nasal Cannula Nasal Cannula O2 Flow Rate 4.0 4.0 3.0 3.0 08/27/18 08/27/18 08/27/18 08/27/18 19:50 21:19 22:19 23:25 Temp 97.9 97.9 Pulse 66 Resp 16 16 18 B/P (MAP) 141/72 (95) Pulse Ox 93 93 99 O2 Delivery Nasal Cannula Nasal Cannula O2 Flow Rate 3.0 3.0 3.0 4.0 08/28/18 08/28/18 08/28/1818 03:55 07:24 07:56 08:15 Temp 97.4 98.2 97.4 98.2 Pulse 112 71 Resp 20 22 B/P (MAP) 106/62 (77) 111/54 (73) Pulse Ox 92 93 89 O2 Delivery Nasal Cannula Nasal Cannula Nasal Cannula Nasal Cannula O2 Flow Rate 4.0 4.0 2.0 2.0 08/28/18 08/28/18 08/28/18 09:32 10:54 11:32 Temp 98.1 98.1 Pulse 71 82 Resp 20 B/P (MAP) 111/54 117/80 (92) Pulse Ox 94 O2 Delivery Nasal Cannula Nasal Cannula O2 Flow Rate 4.0 3.0 Intake and Output 08/27/18 08/27/18 08/28/18 15:00 23:00 07:00 Intake Total 950 ml Output Total 850 ml Balance 100 ml LIDIA RAO MD Aug 28, 2018 14:00
[2018-08-28 15:22] VITALS: BP 125/81
[2018-08-28] MEDS: DOXYCYCLINE HYCLATE 100 MG TABLET PO SCH ×2 (16:25→21:03)
[2018-08-28] MEDS: NON FORMULARY ITEM (Edoxaban Tosylate (Savaysa) 60 MG) PO SCH (16:26)
[2018-08-28] MEDS ORDERED: NON FORMULARY ITEM (Edoxaban Tosylate (Savaysa) 60 MG) PO SCH (17:00)
[2018-08-28 19:51] VITALS: BP 118/80
--- NOTE | 2018-08-28 23:00 | CONS ---
DATE OF CONSULTATION: 08/28/2018 REFERRING PHYSICIAN: Dr. Melgar. REASON FOR CONSULTATION: Pneumonia in immunocompromised patient. HISTORY OF PRESENT ILLNESS: A 58-year-old male with history of stage 3 lung cancer status post chemotherapy and radiation therapy, currently on immunotherapy durvalumab maintenance since May of this year, was admitted through ER with complaint of shortness of breath and cough with yellow sputum, which did not respond to empiric p.o. Levaquin, which was started last Monday as outpatient. The patient has acute on chronic worsening of cough with shortness of breath over the last couple of weeks. The patient was found to be hypoxic with pulse ox 70s over the weekend with exertion and cough and phlegm got worse with low-grade fevers and subjective chills. He was admitted overnight, given steroids, nebulizers and was started on IV vancomycin and Zosyn with some improvement this morning, currently on 3 liters O2 and satting at 90%. The patient states shortness of breath is still the same. He still feels very tired. He denies any sick contact. He has headache whenever he has cough and fever. Denies any sore throat. Denies any sick contact. Denies any recent travel. Denies any outpatient recreational activity. The patient has a Port-A-Cath placed in early this year with the diagnosis of lung CA when he was started on chemotherapy. The patient denies any nausea, vomiting, diarrhea, symptoms, rash, though he had some which he noticed over the left upper extremity for a couple of weeks, which have started fading. Did not have any other rash or skin breakdown. Denies any joint pain. 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 PAST SURGICAL HISTORY: Partial thyroidectomy, umbilical hernia repair. ALLERGIES: STATINS. SOCIAL HISTORY: . Quit tobacco 08/2017. Works with [employer]. Three children. FAMILY HISTORY: As per HPI. CURRENT MEDICATIONS: IV vancomycin and Zosyn. Other medications reviewed in medication list. REVIEW OF SYSTEMS: Negative except for above in HPI. The patient has diarrhea. C. diff and stool cultures have been ordered. PHYSICAL EXAMINATION: GENERAL: Tired appearing, alert, oriented, obese male, lying comfortably, cooperative. VITAL SIGNS: Temperature 98.1, pulse 82, respiration rate 20, blood pressure 117/80, oxygen saturation 94% on 4 liters, T-max 98.2. HEENT: Normocephalic, atraumatic, anicteric. No thrush. No sinus tenderness. NECK: Supple. No JVD. No lymphadenopathy. LUNGS: Clear bilaterally. No wheezing. HEART: S1, S2. No gallops or murmurs. ABDOMEN: Soft, obese. Bowel sounds present, nondistended, nontender. EXTREMITIES: No edema, no cyanosis, no clubbing. DERMATOLOGIC: No generalized rash, mild scattered macular rash left upper extremity, fading per patient. No skin breakdown, no blisters, no ulceration. NEUROLOGIC: Alert and oriented x 3, grossly nonfocal. PSYCHIATRIC: Appropriate mood and affect. CHEST: Port-A-Cath site left chest wall looks okay. LABORATORY DATA: WBC 6.5, hemoglobin 13.7, hematocrit 40.3, platelets 228, neutrophil 88, lymphocytes 0.5, bands 6. Sodium 139, potassium 3.8, chloride 101, bicarbonate 25, BUN 11, creatinine 1.1, glucose 150, calcium 9.2. Influenza screen negative. IMAGING: CTA shows no PE, bilateral lung disease new from previous exam from 06/01/2018 suggesting right hilar pneumonia with superimposed interstitial infection. Followup CT recommended after medical therapy to ensure resolution. Enlarged chest lymph nodes, likely reactive hepatic steatosis. IMPRESSION: 1. Acute hypoxic respiratory failure, improving. 2. Pneumonia. Acute on chronic worsening of respiratory symptoms over couple of weeks, slight improvement since admission, still requiring oxygen. 3. History of pulmonary embolism. 4. Diarrhea. Clostridium difficile and stool cultures ordered. 5. Chronic obstructive pulmonary disease. 6. Diabetes. 7. History of lung adeno CA, stage 3, status post chemoradiotherapy on durvalumab. Concern has been with pneumonitis from immunotherapy and/or radiotherapy versus other. 8. Anemia. 9. Port-A-Cath in place, left chest wall without any complications. 10. History of bronchitis. 11. Morbid obesity. 12. Obstructive sleep apnea, on CPAP. 13. History of smoking, quit 08/2017. RECOMMENDATIONS: 1. Continue empiric IV vancomycin and Zosyn. 2. Monitor renal functions closely. 3. Adjust the dose of vancomycin depending on renal function and vancomycin trough levels. 4. We will add influenza PCR. 5. We will order RVP panel if allowed by administration. 6. Send urine for histo plasma antigen. 7. Send cryptococcal antigen. 8. Continue supportive care. 9. Look for other noninfectious etiologies. The patient may need pulmonary evaluation including bronchoscopy. 10. Follow up labs in a.m. and cultures. Thank you, Dr. Melgar, for consulting Infectious Disease to participate in this patient's care. If you have any questions, do not hesitate to contact me. LIS MARTE MD DR: MAHSA/nts JOB#: [id number] / [id number]
[2018-08-28 23:08] VITALS: BP 115/81
[2018-08-29] MEDS: PIPERACILLIN/TAZOBACTAM 4.5 GM in IV NORMAL SALINE 100ML 100 ML IV SCH ×4 (00:22→18:11)
[2018-08-29 03:19] VITALS: BP 118/76
[2018-08-29] MEDS: LEVOTHYROXINE 50 MCG TABLET PO SCH (05:16)
[2018-08-29] MEDS: ACETAMINOPHEN 500 MG TABLET PO SCH ×3 (05:17→20:50)
[2018-08-29 05:52] LABS: CALCIUM 8.4 mg/dL (8.5-10.1); CREATININE 1.3 mg/dL (0.7-1.3); GFR 56.9; POTASSIUM 3.9 mmol/L (3.5-5.1)
[2018-08-29 07:00] VITALS: BP 125/87
[2018-08-29] MEDS: BUDESONIDE 0.5 MG/2 ML NEBU. NEB SCH ×2 (07:55→20:13)
[2018-08-29] MEDS: IPRATRPIUM/ALBUTEROL 0.5/2.5MG 3 ML NEBU. NEB SCH ×4 (07:55→20:14)
[2018-08-29] MEDS: INSULIN LISPRO 300 UNITS/3 ML INSULN.PEN. SQ SCH ×3 (08:00→17:00)
[2018-08-29] MEDS: DOXYCYCLINE HYCLATE 100 MG TABLET PO SCH ×2 (08:50→20:46)
[2018-08-29] MEDS: PANTOPRAZOLE 40 MG TABLET.DR. PO SCH (08:50)
[2018-08-29] MEDS: amLODIPine BESYLATE 5 MG TABLET PO SCH (08:50)
[2018-08-29] MEDS: glipiZIDE ER 2.5 MG TAB.ER.24 PO SCH ×2 (08:51→18:11)
--- NOTE | 2018-08-29 09:18 | PDOC ---
SUBJECTIVE Subjective S: Continues to do better, on 2 L oxygen, did get winded going to the bathroom O: Physical exam: Gen.: Obese, middle-aged, resting in bed in no acute distress Lungs: Breathing comfortably on 2 L nasal cannula Psychiatric: Pleasant mood and affect Labs: White count 6.5, hemoglobin 13.7, platelets 228 Creatinine 1.3 Probe calcitonin negative Assessment and Plan: He is a 58-year-old male with stage III lung cancer status post recent chemoradiotherapy currently on durvalumab maintenance admitted with pneumonia, unsure how much is pneumonitis related to durvalumab... Pneumonia: appreciate ID assistance, on IV antibiotics, still requiring oxygen History of PE: No current PE, he remains on Xarelto 20 mg daily Diarrhea: C. difficile has been ordered COPD: On nebulizers, did get 1 dose of Solu-Medrol 27 August, as he continues to clinically improve we'll continue to hold further steroids Diabetes: Per primary Lung cancer: Maintenance chemotherapy on hold, unsure if of pneumonitis involvement from durvalumab? Currently improving without steroids Disposition: After continued improvement Thank you kindly and please do not hesitate to call with questions. OBJECTIVE Vital Signs Vital Signs Date Time Temp Pulse Resp B/P (MAP) Pulse Ox O2 Delivery O2 Flow Rate FiO2 08/29/18 08:50 71 125/87 08/29/18 07:57 96 Nasal Cannula 3.0 08/29/18 07:00 98.0 71 18 125/87 (100) 98 Nasal Cannula 3.0 98.0 08/29/18 03:19 97.4 82 20 118/76 (90) 92 Nasal Cannula 3.0 97.4 08/28/18 23:08 97.5 81 20 115/81 (92) 94 Nasal Cannula 3.0 97.5 08/28/18 20:00 Nasal Cannula 3.0 08/28/18 19:51 97.4 84 20 118/80 (93) 92 Nasal Cannula 3.0 97.4 08/28/18 19:40 93 Nasal Cannula 3.0 08/28/18 19:40 93 Nasal Cannula 3.0 08/28/18 15:22 98.1 84 20 125/81 (96) 97 Nasal Cannula 4.0 98.1 08/28/18 15:17 Nasal Cannula 3.0 08/28/18 11:32 Nasal Cannula 3.0 08/28/18 10:54 98.1 82 20 117/80 (92) 94 Nasal Cannula 4.0 98.1 08/28/18 09:32 71 111/54 I & O Intake and Output 08/29/18 07:00 Intake Total 3800 ml Output Total 5550 ml Balance -1750 ml Intake Oral 3800 ml Output Urine Total 5550 ml COMMENT Lab Laboratory Tests Test 08/28/18 11:34 08/28/18 17:04 08/28/18 20:26 08/29/18 05:20 Glucose (Fingerstick) 191 mg/dL (70-99) 143 mg/dL (70-99) 160 mg/dL (70-99) Sodium Level 140 mmol/L (136-145) Potassium Level 3.9 mmol/L (3.5-5.1) Chloride Level 106 mmol/L (98-107) Carbon Dioxide Level 27 mmol/L (21-32) Anion Gap 7 (6-14) Blood Urea Nitrogen 15 mg/dL (8-26) Creatinine 1.3 mg/dL (0.7-1.3) Estimated GFR (Cockcroft-Gault) 56.9 Glucose Level 113 mg/dL (70-99) Calcium Level 8.4 mg/dL (8.5-10.1) Procalcitonin < 0.10 ng/mL (0.00-0.10) Test 08/29/18 07:21 Glucose (Fingerstick) 125 mg/dL (70-99) JAY DESAI MD Aug 29, 2018 09:18
[2018-08-29] MEDS: VANCOMYCIN 2 GM in IV NORMAL SALINE 500ML BAG 500 ML IV SCH (10:41)
[2018-08-29] MEDS: VANCOMYCIN PER PHARMACY MC PRN (10:51)
[2018-08-29 11:00] VITALS: BP 128/83
--- NOTE | 2018-08-29 11:34 | PDOC ---
Infectious Disease Note Subjective: Subjective Pt denies any fever or chills still has sob and feels winded when he ambulates no sputum production no chestpain ROS: ROS Negative except for above. Vital Signs: Vital Signs Vital Signs Date Time Temp Pulse Resp B/P (MAP) Pulse Ox O2 Delivery O2 Flow Rate FiO2 08/29/18 11:00 97.4 78 18 128/83 (98) 96 Nasal Cannula 3.0 97.4 Physical Exam: PHYSICAL EXAM GEN Axox3 tired appearing male in nad HEENT: Normocephalic, atraumatic, anicteric. No thrush. No sinus tenderness. NECK: Supple. No JVD. No lymphadenopathy. LUNGS: Clear bilaterally. No wheezing. HEART: S1, S2. No gallops or murmurs. ABDOMEN: Soft, obese. Bowel sounds present, nondistended, nontender. EXTREMITIES: No edema, no cyanosis, no clubbing. DERMATOLOGIC: No generalized rash, mild scattered macular rash left upper extremity, fading per patient. No skin breakdown, no blisters, no ulceration. NEUROLOGIC: Alert and oriented x 3, grossly nonfocal. PSYCHIATRIC: Appropriate mood and affect. CHEST: Port-A-Cath site left chest wall looks okay. Medications: Inpatient Meds: Current Medications Medications (Trade) Dose Ordered Sig/Christina Start Time Stop Time Status Last Admin Dose Admin Acetaminophen (Tylenol) 500 mg BID 08/28/18 09:00 08/29/18 05:17 500 MG Albuterol/ Ipratropium (Duoneb) 3 ml RTQID 08/27/18 20:00 08/29/18 07:55 3 ML Amlodipine Besylate (Norvasc) 5 mg DAILY 08/28/18 09:00 08/29/18 08:50 5 MG Azithromycin 250 ml @ 250 mls/hr 1X ONCE 08/27/18 18:00 08/27/18 18:59 DC Budesonide (Pulmicort) 0.5 mg RTBID 08/27/18 20:00 08/29/18 07:55 0.5 MG Ceftriaxone Sodium (Rocephin) 1 gm 1X ONCE 08/27/18 18:00 08/27/18 18:01 DC 08/27/18 18:53 1 GM Dextrose (Dextrose 50%-Water Syringe) 12.5 gm PRN Q15MIN PRN 08/27/18 19:15 Diphenhydramine HCl (Benadryl) 25 mg PRN QHS PRN 08/27/18 19:00 Doxycycline Hyclate (Vibra-Tab) 100 mg BID 08/28/18 14:00 08/29/18 08:50 100 MG Glipizide (Glucotrol Er) 5 mg BIDAC 08/28/18 09:00 08/29/18 08:51 5 MG Guaifenesin (Robitussin Dm) 10 ml PRN Q6HRS PRN 08/27/18 19:00 Info (CONTRAST GIVEN -- Rx MONITORING) 1 each PRN DAILY PRN 08/27/18 15:45 08/29/18 15:44 Insulin Human Lispro (HumaLOG) 0-9 UNITS TIDWMEALS 08/27/18 19:30 08/28/18 12:49 4 UNITS Iohexol (Omnipaque 300 Mg/ml) 75 ml 1X ONCE 08/27/18 15:45 08/27/18 15:46 DC 08/27/18 15:45 100 ML Ipratropium Eliot (Atrovent) 0.5 mg 1X ONCE 08/27/18 15:45 08/27/18 15:46 DC 08/27/18 16:05 0.5 MG Levothyroxine Sodium (Synthroid) 50 mcg DAILY06 08/28/18 10:30 08/29/18 05:16 50 MCG Lisinopril (Prinivil) 10 mg DAILY 08/28/18 09:00 08/28/18 09:47 DC Metformin HCl (Glucophage) 1,000 mg BIDWMEALS 08/29/18 17:00 Methylprednisolone Sodium Succinate (SOLU-Medrol 125MG VIAL) 125 mg 1X ONCE 08/27/18 15:45 08/27/18 15:46 DC 08/27/18 15:59 125 MG Non-Formulary Medication (Edoxaban Tosylate (Savaysa)) 60 mg DAILYWSUP 08/28/18 17:00 08/28/18 16:26 60 MG Ondansetron HCl (Zofran Odt) 8 mg PRN BID PRN 08/27/18 19:15 Ondansetron HCl (Zofran) 4 mg PRN Q6HRS PRN 08/27/18 19:15 Oxycodone/ Acetaminophen (Percocet 5/325) 1 tab PRN Q6HRS PRN 08/27/18 19:15 08/27/18 21:19 1 TAB Pantoprazole Sodium (Protonix) 40 mg DAILYAC 08/28/18 07:30 08/29/18 08:50 40 MG Piperacillin Sod/ Tazobactam Sod (Zosyn Per Pharmacy) 1 each PRN DAILY PRN 08/27/18 19:00 Piperacillin Sod/ Tazobactam Sod 4.5 gm/Sodium Chloride 100 ml @ 200 mls/hr Q6HRS 08/27/18 19:30 08/29/18 05:16 200 MLS/HR Potassium Chloride/Sodium Chloride 1,000 ml @ 100 mls/hr Q10H 08/27/18 20:30 08/29/18 05:15 100 MLS/HR Rivaroxaban (Xarelto) 20 mg DAILYWSUP 08/27/18 20:00 08/28/18 13:15 DC Sodium Chloride 1,000 ml @ 100 mls/hr Q10H 08/27/18 20:30 08/27/18 20:30 DC Vancomycin HCl (Vanco Per Pharmacy) 1 each PRN DAILY PRN 08/27/18 19:00 08/29/18 10:51 1 EACH Vancomycin HCl (Vancomycin Trough Level) 1 each 1X ONCE 08/29/18 08:30 08/29/18 08:31 DC 08/29/18 08:30 1 EACH Vancomycin HCl 2 gm/Sodium Chloride 500 ml @ 250 mls/hr Q12H 08/28/18 09:00 08/29/18 10:41 250 MLS/HR Labs: Lab Laboratory Tests Test 08/28/18 11:34 08/28/18 17:04 08/28/18 20:26 08/29/18 05:20 Glucose (Fingerstick) 191 mg/dL (70-99) 143 mg/dL (70-99) 160 mg/dL (70-99) Sodium Level 140 mmol/L (136-145) Potassium Level 3.9 mmol/L (3.5-5.1) Chloride Level 106 mmol/L (98-107) Carbon Dioxide Level 27 mmol/L (21-32) Anion Gap 7 (6-14) Blood Urea Nitrogen 15 mg/dL (8-26) Creatinine 1.3 mg/dL (0.7-1.3) Estimated GFR (Cockcroft-Gault) 56.9 Glucose Level 113 mg/dL (70-99) Calcium Level 8.4 mg/dL (8.5-10.1) Procalcitonin < 0.10 ng/mL (0.00-0.10) Test 08/29/18 07:21 08/29/18 09:00 Glucose (Fingerstick) 125 mg/dL (70-99) Vancomycin Level Trough 15.0 mcg/mL (10.0-20.0) Vancomycin Last Dose Date 08/28/18 Vancomycin Last Dose Time 2100 Objective: Assessment: Acute hypoxic resp failure Pneumonia acute on chronic failed outpt levaquin etiology could be infectious vs noninfectious immunotherpy induced vs radiation pneumonitis ,failed outpt levaquin Lung ca s/p CT and RT on immunotherapy Immunosupression DM LILIA History of pulmonary embolism. Diarrhea. Clostridium difficile and stool cultures ordered. Chronic obstructive pulmonary disease. Anemia. Port-A-Cath in place, left chest wall without any complications. History of bronchitis. Morbid obesity. Plan: Plan of Care Cont IV Zosyn/ doxycycline f/u RVP unable to give sputum for C/S add sputum for pjp stain Urine legionella and strep pneu ag Urine histo ag,crypto ag f/u labs and cults cont supportive care LIS MARTE MD Aug 29, 2018 11:34
[2018-08-29] MEDS: oxyCODONE/APAP 5/325 1 TAB TABLET PO PRN ×2 (13:25→20:49)
--- NOTE | 2018-08-29 13:54 | PDOC ---
PROGRESS NOTES Chief Complaint Chief Complaint sepsis Pneumonia right sided, acute hypoxic respiratory failure, POA [place] lung, status post chemotherapy and radiation therapy May 2018 History of Present Illness History of Present Illness cont Broad-spectrum antibiotics, ID following he feels better taper 02 heme onc follwoing cont the home meds + Scale insulin left Port-A-Cath Vitals Vitals Vital Signs Date Time Temp Pulse Resp B/P (MAP) Pulse Ox O2 Delivery O2 Flow Rate FiO2 08/29/18 13:25 Nasal Cannula 08/29/18 11:59 2.0 08/29/18 11:00 97.4 78 18 128/83 (98) 96 97.4 Physical Exam Physical Exam GEN Axox3 tired appearing male in nad HEENT: Normocephalic, atraumatic, anicteric. No thrush. No sinus tenderness. NECK: Supple. No JVD. No lymphadenopathy. LUNGS: Clear bilaterally. No wheezing. HEART: S1, S2. No gallops or murmurs. ABDOMEN: Soft, obese. Bowel sounds present, nondistended, nontender. EXTREMITIES: No edema, no cyanosis, no clubbing. DERMATOLOGIC: No generalized rash, mild scattered macular rash left upper extremity, fading per patient. No skin breakdown, no blisters, no ulceration. NEUROLOGIC: Alert and oriented x 3, grossly nonfocal. PSYCHIATRIC: Appropriate mood and affect. CHEST: Port-A-Cath site left chest wall looks okay. General: Alert, Oriented X3, Cooperative, No acute distress Abdomen: Soft, No tenderness, No hepatosplenomegaly, No masses, Other (hyper active bowel sounds) Extremities: No clubbing, No cyanosis, No edema, Normal pulses, No tenderness/ swelling Skin: No rashes, No breakdown, No significant lesion Labs LABS Laboratory Tests Test 08/28/18 17:04 08/28/18 20:26 08/29/18 05:20 08/29/18 07:21 Glucose (Fingerstick) 143 mg/dL (70-99) 160 mg/dL (70-99) 125 mg/dL (70-99) Sodium Level 140 mmol/L (136-145) Potassium Level 3.9 mmol/L (3.5-5.1) Chloride Level 106 mmol/L (98-107) Carbon Dioxide Level 27 mmol/L (21-32) Anion Gap 7 (6-14) Blood Urea Nitrogen 15 mg/dL (8-26) Creatinine 1.3 mg/dL (0.7-1.3) Estimated GFR (Cockcroft-Gault) 56.9 Glucose Level 113 mg/dL (70-99) Calcium Level 8.4 mg/dL (8.5-10.1) Procalcitonin < 0.10 ng/mL (0.00-0.10) Test 08/29/18 09:00 08/29/18 11:39 Vancomycin Level Trough 15.0 mcg/mL (10.0-20.0) Vancomycin Last Dose Date 08/28/18 Vancomycin Last Dose Time 2100 Glucose (Fingerstick) 126 mg/dL (70-99) Comment Review of Relevant I have reviewed the following items krupa (where applicable) has been applied. Labs Laboratory Tests Test 08/27/18 15:59 08/27/18 16:33 08/27/18 20:30 08/28/18 00:55 White Blood Count 6.6 x10^3/uL (4.0-11.0) Red Blood Count 4.28 x10^6/uL (4.30-5.70) Hemoglobin 13.9 g/dL (13.0-17.5) Hematocrit 40.1 % (39.0-53.0) Mean Corpuscular Volume 94 fL (79-100) Mean Corpuscular Hemoglobin 33 pg (25-35) Mean Corpuscular Hemoglobin Concent 35 g/dL (31-37) Red Cell Distribution Width 16.8 % (11.5-14.5) Platelet Count 218 x10^3/uL (140-400) Neutrophils (%) (Auto) 82 % (31-73) Lymphocytes (%) (Auto) 10 % (24-48) Monocytes (%) (Auto) 6 % (0-9) Eosinophils (%) (Auto) 2 % (0-3) Basophils (%) (Auto) 0 % (0-3) Neutrophils # (Auto) 5.5 x10^3uL (1.8-7.7) Lymphocytes # (Auto) 0.6 x10^3/uL (1.0-4.8) Monocytes # (Auto) 0.4 x10^3/uL (0.0-1.1) Eosinophils # (Auto) 0.1 x10^3/uL (0.0-0.7) Basophils # (Auto) 0.0 x10^3/uL (0.0-0.2) Sodium Level 137 mmol/L (136-145) Potassium Level 3.6 mmol/L (3.5-5.1) Chloride Level 100 mmol/L (98-107) Carbon Dioxide Level 22 mmol/L (21-32) Anion Gap 15 (6-14) Blood Urea Nitrogen 14 mg/dL (8-26) Creatinine 1.2 mg/dL (0.7-1.3) Estimated GFR (Cockcroft-Gault) 62.4 BUN/Creatinine Ratio 12 (6-20) Glucose Level 127 mg/dL (70-99) Calcium Level 9.3 mg/dL (8.5-10.1) Total Bilirubin 0.2 mg/dL (0.2-1.0) Aspartate Amino Transf (AST/SGOT) 27 U/L (15-37) Alanine Aminotransferase (ALT/SGPT) 32 U/L (16-63) Alkaline Phosphatase 70 U/L (46-116) Troponin I Quantitative < 0.017 ng/mL (0.000-0.055) FG-Chl-U-Type Natriuretic Peptide 21 pg/mL (0-124) Total Protein 7.5 g/dL (6.4-8.2) Albumin 3.7 g/dL (3.4-5.0) Albumin/Globulin Ratio 1.0 (1.0-1.7) Influenza Type A Antigen Negative (NEGATIVE) Influenza Type B Antigen Negative (NEGATIVE) Glucose (Fingerstick) 204 mg/dL (70-99) 186 mg/dL (70-99) Test 08/28/18 08:09 08/28/18 08:25 08/28/18 11:34 08/28/18 17:04 Glucose (Fingerstick) 138 mg/dL (70-99) 191 mg/dL (70-99) 143 mg/dL (70-99) White Blood Count 6.5 x10^3/uL (4.0-11.0) Red Blood Count 4.29 x10^6/uL (4.30-5.70) Hemoglobin 13.7 g/dL (13.0-17.5) Hematocrit 40.3 % (39.0-53.0) Mean Corpuscular Volume 94 fL (79-100) Mean Corpuscular Hemoglobin 32 pg (25-35) Mean Corpuscular Hemoglobin Concent 34 g/dL (31-37) Red Cell Distribution Width 16.8 % (11.5-14.5) Platelet Count 228 x10^3/uL (140-400) Neutrophils (%) (Auto) 88 % (31-73) Lymphocytes (%) (Auto) 7 % (24-48) Monocytes (%) (Auto) 5 % (0-9) Eosinophils (%) (Auto) 0 % (0-3) Basophils (%) (Auto) 0 % (0-3) Neutrophils # (Auto) 5.7 x10^3uL (1.8-7.7) Lymphocytes # (Auto) 0.5 x10^3/uL (1.0-4.8) Monocytes # (Auto) 0.3 x10^3/uL (0.0-1.1) Eosinophils # (Auto) 0.0 x10^3/uL (0.0-0.7) Basophils # (Auto) 0.0 x10^3/uL (0.0-0.2) Segmented Neutrophils % 75 % (35-66) Band Neutrophils % 6 % (0-9) Lymphocytes % 5 % (24-48) Monocytes % 4 % (0-10) Other Cells % 10 % (0-0) Platelet Estimate Adequate (ADEQUATE) Large Platelets Occ Anisocytosis Slight Sodium Level 139 mmol/L (136-145) Potassium Level 3.8 mmol/L (3.5-5.1) Chloride Level 101 mmol/L (98-107) Carbon Dioxide Level 25 mmol/L (21-32) Anion Gap 13 (6-14) Blood Urea Nitrogen 11 mg/dL (8-26) Creatinine 1.1 mg/dL (0.7-1.3) Estimated GFR (Cockcroft-Gault) 69.0 Glucose Level 158 mg/dL (70-99) Calcium Level 9.2 mg/dL (8.5-10.1) Test 08/28/18 20:26 08/29/18 05:20 08/29/18 07:21 08/29/18 09:00 Glucose (Fingerstick) 160 mg/dL (70-99) 125 mg/dL (70-99) Sodium Level 140 mmol/L (136-145) Potassium Level 3.9 mmol/L (3.5-5.1) Chloride Level 106 mmol/L (98-107) Carbon Dioxide Level 27 mmol/L (21-32) Anion Gap 7 (6-14) Blood Urea Nitrogen 15 mg/dL (8-26) Creatinine 1.3 mg/dL (0.7-1.3) Estimated GFR (Cockcroft-Gault) 56.9 Glucose Level 113 mg/dL (70-99) Calcium Level 8.4 mg/dL (8.5-10.1) Procalcitonin < 0.10 ng/mL (0.00-0.10) Vancomycin Level Trough 15.0 mcg/mL (10.0-20.0) Vancomycin Last Dose Date 08/28/18 Vancomycin Last Dose Time 2100 Test 08/29/18 11:39 Glucose (Fingerstick) 126 mg/dL (70-99) Laboratory Tests Test 08/28/18 17:04 08/28/18 20:26 08/29/18 05:20 08/29/18 07:21 Glucose (Fingerstick) 143 mg/dL (70-99) 160 mg/dL (70-99) 125 mg/dL (70-99) Sodium Level 140 mmol/L (136-145) Potassium Level 3.9 mmol/L (3.5-5.1) Chloride Level 106 mmol/L (98-107) Carbon Dioxide Level 27 mmol/L (21-32) Anion Gap 7 (6-14) Blood Urea Nitrogen 15 mg/dL (8-26) Creatinine 1.3 mg/dL (0.7-1.3) Estimated GFR (Cockcroft-Gault) 56.9 Glucose Level 113 mg/dL (70-99) Calcium Level 8.4 mg/dL (8.5-10.1) Procalcitonin < 0.10 ng/mL (0.00-0.10) Test 08/29/18 09:00 08/29/18 11:39 Vancomycin Level Trough 15.0 mcg/mL (10.0-20.0) Vancomycin Last Dose Date 08/28/18 Vancomycin Last Dose Time 2100 Glucose (Fingerstick) 126 mg/dL (70-99) Microbiology 08/27/18 Blood Culture - Preliminary, Resulted NO GROWTH AFTER 1 DAY Medications Current Medications Ipratropium [place] (Atrovent) 0.5 mg 1X ONCE NEB Last administered on at 16:05; Start 08/27/18 at 15:45; Stop 08/27/18 at 15:46; Status DC Methylprednisolone Sodium Succinate (SOLU-Medrol 125MG VIAL) 125 mg 1X ONCE IV Last administered on 08/27/18at 15:59; Start 08/27/18 at 15:45; Stop at 15:46; Status DC Iohexol (Omnipaque 300 Mg/ml) 75 ml 1X ONCE IV Last administered on at 15:45; Start 08/27/18 at 15:45; Stop 08/27/18 at 15:46; Status DC Info (CONTRAST GIVEN -- Rx MONITORING) 1 each PRN DAILY PRN MC SEE COMMENTS; Start 08/27/18 at 15:45; Stop 08/29/18 at 15:44 Ceftriaxone Sodium (Rocephin) 1 gm 1X ONCE IVP Last administered on at 18:53; Start 08/27/18 at 18:00; Stop 08/27/18 at 18:01; Status DC Azithromycin 250 ml @ 250 mls/hr 1X ONCE IV ; Start 08/27/18 at 18:00; Stop 08/27/18 at 18:59; Status DC Ondansetron HCl (Zofran) 4 mg PRN Q8HRS PRN IV NAUSEA/VOMITING; Start at 18:15; Stop 08/27/18 at 19:01; Status DC Acetaminophen (Tylenol) 650 mg PRN Q4HRS PRN PO FEVER Last administered on 08/05at 09:31; Start 08/27/18 at 18:15; Stop 08/28/18 at 18:14; Status DC Albuterol/ Ipratropium (Duoneb) 3 ml RTQID NEB ; Start 08/27/18 at 20:00; Stop 08/27/18 at 20:00; Status DC Ondansetron HCl (Zofran) 4 mg PRN Q6HRS PRN IV NAUSEA/VOMITING; Start at 19:15 Vancomycin HCl (Vanco Per Pharmacy) 1 each PRN DAILY PRN MC SEE COMMENTS Last administered on 08/29/18at 10:51; Start 08/27/18 at 19:00; Stop 08/29/18 at 11 :38; Status DC Piperacillin Sod/ Tazobactam Sod (Zosyn Per Pharmacy) 1 each PRN DAILY PRN MC SEE COMMENTS; Start 08/27/18 at 19:00 Guaifenesin (Robitussin Dm) 10 ml PRN Q6HRS PRN PO COUGH; Start 08/27/18 at 19 :00 Albuterol/ Ipratropium (Duoneb) 3 ml RTQID NEB Last administered on 08/29/18at 11:58; Start 08/27/18 at 20:00 Diphenhydramine HCl (Benadryl) 25 mg PRN QHS PRN PO INSOMNIA; Start 08/27/18 at 19:00 Sodium Chloride 1,000 ml @ 100 mls/hr 1X ONCE IV Last administered on at 20:11; Start 08/27/18 at 19:15; Stop 08/28/18 at 05:14; Status DC Lisinopril (Prinivil) 10 mg DAILY PO ; Start 08/28/18 at 09:00; Stop 08/28/18 at 09:47; Status DC Oxycodone/ Acetaminophen (Percocet 5/325) 1 tab PRN Q6HRS PRN PO PAIN Last administered on 08/29/18at 13:25; Start 08/27/18 at 19:15 Budesonide (Pulmicort) 0.5 mg RTBID NEB Last administered on 08/29/18at 07:55; Start 08/27/18 at 20:00 Metformin HCl (Glucophage) 1,000 mg BIDWMEALS PO ; Start 08/29/18 at 17:00 Pantoprazole Sodium (Protonix) 40 mg DAILYAC PO Last administered on at 08:50; Start 08/28/18 at 07:30 Ondansetron HCl (Zofran Odt) 8 mg PRN BID PRN PO NAUSEA/VOMITING; Start at 19:15 Rivaroxaban (Xarelto) 20 mg DAILYWSUP PO ; Start 08/27/18 at 20:00; Stop 08/28 at 13:15; Status DC Insulin Human Lispro (HumaLOG) 0-9 UNITS TIDWMEALS SQ Last administered on 08/05at 12:49; Start 08/27/18 at 19:30 Dextrose (Dextrose 50%-Water Syringe) 12.5 gm PRN Q15MIN PRN IV SEE COMMENTS; Start 08/27/18 at 19:15 Piperacillin Sod/ Tazobactam Sod 4.5 gm/Sodium Chloride 100 ml @ 200 mls/hr Q6HRS IV Last administered on 08/29/18at 13:24; Start 08/27/18 at 19:30 Vancomycin HCl 2 gm/Sodium Chloride 500 ml @ 250 mls/hr 1X ONCE IV Last administered on 08/27/18at 21:10; Start 08/27/18 at 20:00; Stop 08/27/18 at 21 :59; Status DC Sodium Chloride 1,000 ml @ 100 mls/hr Q10H IV ; Start 08/27/18 at 20:30; Stop 08/27/18 at 20:30; Status DC Potassium Chloride/Sodium Chloride 1,000 ml @ 100 mls/hr Q10H IV Last administered on 08/29/18at 05:15; Start 08/27/18 at 20:30 Vancomycin HCl (Vancomycin Trough Level) 1 each 1X ONCE MC Last administered on 08/29/18at 08:30; Start 08/29/18 at 08:30; Stop 08/29/18 at 08:31; Status DC Vancomycin HCl 2 gm/Sodium Chloride 500 ml @ 250 mls/hr Q12H IV Last administered on 08/29/18at 10:41; Start 08/28/18 at 09:00; Stop 08/29/18 at 11 :36; Status DC Amlodipine Besylate (Norvasc) 5 mg DAILY PO Last administered on 08/29/18at 08: 50; Start 08/28/18 at 09:00 Acetaminophen (Tylenol) 500 mg BID PO Last administered on 08/29/18at 05:17; Start 08/28/18 at 09:00 Non-Formulary Medication (Edoxaban Tosylate (Savaysa)) 60 mg DAILYWSUP PO ; Start 08/28/18 at 17:00; Status UNV Glipizide (Glucotrol Er) 5 mg BIDAC PO Last administered on 08/29/18at 08:51; Start 08/28/18 at 09:00 Levothyroxine Sodium (Synthroid) 50 mcg DAILY06 PO Last administered on at 05:16; Start 08/28/18 at 10:30 Non-Formulary Medication (Edoxaban Tosylate (Savaysa)) 60 mg DAILYWSUP PO Last administered on 08/28/18at 16:26; Start 08/28/18 at 17:00 Doxycycline Hyclate (Vibra-Tab) 100 mg BID PO Last administered on 08/29/18at 08:50; Start 08/28/18 at 14:00 Active Scripts Active Reported Acetaminophen 500 Mg Tablet 1 Tab PO BID Amlodipine Besylate 5 Mg Tablet 5 Mg PO DAILY Levofloxacin 500 Mg Tablet 1 Tab PO DAILY Savaysa (Edoxaban Tosylate) 60 Mg Tablet 60 Mg PO DAILYWSUP Glipizide Er (Glipizide) 5 Mg Tab.er.24 1 Tab PO BID Synthroid (Levothyroxine Sodium) 50 Mcg Tablet 1 Tab PO DAILY07 Imfinzi (Durvalumab) 120 Mg/2.4 Ml Vial 120 Mg IV Q 2WEEKS PER REGIMEN Percocet 5-325 Mg Tablet (Oxycodone/Acetaminophen) 1 Each Tablet 1 Tab PO PRN Q6HRS PRN Zofran (Ondansetron Hcl) 8 Mg Tablet 8 Mg PO BID PRN Prilosec Otc (Omeprazole Magnesium) 20 Mg Tablet.dr 20 Mg PO BID Symbicort 160-4.5 Mcg Inhaler (Budesonide/Formoterol Fumarate) 10.2 Gm Hfa.aer.ad 2 Puff IH BID Metformin Hcl 1,000 Mg Tablet 1,000 Mg PO BIDWMEALS Vitals/I & O Vital Sign - Last 24 Hours 08/28/18 08/28/18 08/28/18 08/28/18 15:17 15:22 19:40 19:40 Temp 98.1 98.1 Pulse 84 Resp 20 B/P (MAP) 125/81 (96) Pulse Ox 97 93 93 O2 Delivery Nasal Cannula Nasal Cannula Nasal Cannula Nasal Cannula O2 Flow Rate 3.0 4.0 3.0 3.0 08/28/18 08/28/18 08/28/18 08/29/18 19:51 20:00 23:08 03:19 Temp 97.4 97.5 97.4 97.4 97.5 97.4 Pulse 84 81 82 Resp 20 20 20 B/P (MAP) 118/80 (93) 115/81 (92) 118/76 (90) Pulse Ox 92 94 92 O2 Delivery Nasal Cannula Nasal Cannula Nasal Cannula Nasal Cannula O2 Flow Rate 3.0 3.0 3.0 3.0 08/29/18 08/29/18 08/29/18 08/29/18 07:00 07:57 08:00 08:50 Temp 98.0 98.0 Pulse 71 71 Resp 18 B/P (MAP) 125/87 (100) 125/87 Pulse Ox 98 96 O2 Delivery Nasal Cannula Nasal Cannula Nasal Cannula O2 Flow Rate 3.0 3.0 3.0 08/29/18 08/29/18 08/29/18 11:00 11:59 13:25 Temp 97.4 97.4 Pulse 78 Resp 18 B/P (MAP) 128/83 (98) Pulse Ox 96 O2 Delivery Nasal Cannula Nasal Cannula Nasal Cannula O2 Flow Rate 3.0 2.0 Intake and Output 08/28/18 08/28/18 08/29/18 15:00 23:00 07:00 Intake Total 900 ml 1700 ml 1200 ml Output Total 2950 ml 2000 ml 600 ml Balance -2050 ml -300 ml 600 ml LIDIA RAO MD Aug 29, 2018 13:54
[2018-08-29 15:00] VITALS: BP 127/82
[2018-08-29] MEDS: metFORMIN 500 MG TABLET PO SCH (18:10)
[2018-08-29] MEDS: NON FORMULARY ITEM (Edoxaban Tosylate (Savaysa) 60 MG) PO SCH (18:11)
[2018-08-29 19:44] VITALS: BP 138/89
[2018-08-29 23:34] VITALS: BP 119/75
[2018-08-30] MEDS: PIPERACILLIN/TAZOBACTAM 4.5 GM in IV NORMAL SALINE 100ML 100 ML IV SCH ×2 (00:39→05:57)
[2018-08-30 03:33] VITALS: BP 147/93
[2018-08-30] MEDS: LEVOTHYROXINE 50 MCG TABLET PO SCH (05:57)
[2018-08-30] MEDS: ACETAMINOPHEN 500 MG TABLET PO SCH ×2 (06:07→21:34)
[2018-08-30 06:34] LABS: CREATININE 1.3 mg/dL (0.7-1.3); GFR 56.9
[2018-08-30 07:00] VITALS: BP 158/93
[2018-08-30] MEDS: BUDESONIDE 0.5 MG/2 ML NEBU. NEB SCH ×2 (07:45→21:47)
[2018-08-30] MEDS: IPRATRPIUM/ALBUTEROL 0.5/2.5MG 3 ML NEBU. NEB SCH ×4 (07:45→21:47)
[2018-08-30] MEDS: INSULIN LISPRO 300 UNITS/3 ML INSULN.PEN. SQ SCH ×3 (08:00→17:00)
[2018-08-30] MEDS: PANTOPRAZOLE 40 MG TABLET.DR. PO SCH (08:19)
[2018-08-30] MEDS: metFORMIN 500 MG TABLET PO SCH ×2 (08:19→17:01)
[2018-08-30] MEDS: DOXYCYCLINE HYCLATE 100 MG TABLET PO SCH ×2 (08:19→21:34)
[2018-08-30] MEDS: glipiZIDE ER 2.5 MG TAB.ER.24 PO SCH ×2 (08:19→17:01)
[2018-08-30] MEDS: amLODIPine BESYLATE 5 MG TABLET PO SCH (08:20)
--- NOTE | 2018-08-30 09:17 | PDOC ---
Infectious Disease Note Subjective: Subjective Pt feels better today denies any fever or chills less sob today compared to yesterday no sputum production no chestpain ROS: ROS Negative except for above. Vital Signs: Vital Signs Vital Signs Date Time Temp Pulse Resp B/P (MAP) Pulse Ox O2 Delivery O2 Flow Rate FiO2 08/30/18 08:20 108 147/93 08/30/18 07:46 95 Nasal Cannula 3.0 08/30/18 07:00 98.0 18 98.0 Physical Exam: PHYSICAL EXAM GEN Axox3 tired appearing male in nad HEENT: Normocephalic, atraumatic, anicteric. No thrush. No sinus tenderness. NECK: Supple. No JVD. No lymphadenopathy. LUNGS: Clear bilaterally. No wheezing. HEART: S1, S2. No gallops or murmurs. ABDOMEN: Soft, obese. Bowel sounds present, nondistended, nontender. EXTREMITIES: No edema, no cyanosis, no clubbing. DERMATOLOGIC: No generalized rash, mild scattered macular rash left upper extremity, fading per patient. No skin breakdown, no blisters, no ulceration. NEUROLOGIC: Alert and oriented x 3, grossly nonfocal. PSYCHIATRIC: Appropriate mood and affect. CHEST: Port-A-Cath site left chest wall looks okay. Medications: Inpatient Meds: Current Medications Medications (Trade) Dose Ordered Sig/Christina Start Time Stop Time Status Last Admin Dose Admin Acetaminophen (Tylenol) 500 mg BID 08/28/18 09:00 08/30/18 06:07 500 MG Albuterol/ Ipratropium (Duoneb) 3 ml RTQID 08/27/18 20:00 08/30/18 07:45 3 ML Amlodipine Besylate (Norvasc) 5 mg DAILY 08/28/18 09:00 08/30/18 08:20 5 MG Azithromycin 250 ml @ 250 mls/hr 1X ONCE 08/27/18 18:00 08/27/18 18:59 DC Budesonide (Pulmicort) 0.5 mg RTBID 08/27/18 20:00 08/30/18 07:45 0.5 MG Ceftriaxone Sodium (Rocephin) 1 gm 1X ONCE 08/27/18 18:00 08/27/18 18:01 DC 08/27/18 18:53 1 GM Dextrose (Dextrose 50%-Water Syringe) 12.5 gm PRN Q15MIN PRN 08/27/18 19:15 Diphenhydramine HCl (Benadryl) 25 mg PRN QHS PRN 08/27/18 19:00 Doxycycline Hyclate (Vibra-Tab) 100 mg BID 08/28/18 14:00 08/30/18 08:19 100 MG Glipizide (Glucotrol Er) 5 mg BIDAC 08/28/18 09:00 08/30/18 08:19 5 MG Guaifenesin (Robitussin Dm) 10 ml PRN Q6HRS PRN 08/27/18 19:00 Info (CONTRAST GIVEN -- Rx MONITORING) 1 each PRN DAILY PRN 08/27/18 15:45 08/29/18 15:44 DC Insulin Human Lispro (HumaLOG) 0-9 UNITS TIDWMEALS 08/27/18 19:30 08/28/18 12:49 4 UNITS Iohexol (Omnipaque 300 Mg/ml) 75 ml 1X ONCE 08/27/18 15:45 08/27/18 15:46 DC 08/27/18 15:45 100 ML Ipratropium [place] (Atrovent) 0.5 mg 1X ONCE 08/27/18 15:45 08/27/18 15:46 DC 08/27/18 16:05 0.5 MG Levothyroxine Sodium (Synthroid) 50 mcg DAILY06 08/28/18 10:30 08/30/18 05:57 50 MCG Lisinopril (Prinivil) 10 mg DAILY 08/28/18 09:00 08/28/18 09:47 DC Metformin HCl (Glucophage) 1,000 mg BIDWMEALS 08/29/18 17:00 08/30/18 08:19 1,000 MG Methylprednisolone Sodium Succinate (SOLU-Medrol 125MG VIAL) 125 mg 1X ONCE 08/27/18 15:45 08/27/18 15:46 DC 08/27/18 15:59 125 MG Non-Formulary Medication (Edoxaban Tosylate (Savaysa)) 60 mg DAILYWSUP 08/28/18 17:00 08/29/18 18:11 60 MG Ondansetron HCl (Zofran Odt) 8 mg PRN BID PRN 08/27/18 19:15 Ondansetron HCl (Zofran) 4 mg PRN Q6HRS PRN 08/27/18 19:15 Oxycodone/ Acetaminophen (Percocet 5/325) 1 tab PRN Q6HRS PRN 08/27/18 19:15 08/29/18 20:49 1 TAB Pantoprazole Sodium (Protonix) 40 mg DAILYAC 08/28/18 07:30 08/30/18 08:19 40 MG Piperacillin Sod/ Tazobactam Sod (Zosyn Per Pharmacy) 1 each PRN DAILY PRN 08/27/18 19:00 Piperacillin Sod/ Tazobactam Sod 4.5 gm/Sodium Chloride 100 ml @ 200 mls/hr Q6HRS 08/27/18 19:30 08/30/18 05:57 200 MLS/HR Potassium Chloride/Sodium Chloride 1,000 ml @ 100 mls/hr Q10H 08/27/18 20:30 08/30/18 06:07 100 MLS/HR Rivaroxaban (Xarelto) 20 mg DAILYWSUP 08/27/18 20:00 08/28/18 13:15 DC Sodium Chloride 1,000 ml @ 100 mls/hr Q10H 08/27/18 20:30 08/27/18 20:30 DC Vancomycin HCl (Vanco Per Pharmacy) 1 each PRN DAILY PRN 08/27/18 19:00 08/29/18 11:38 DC 08/29/18 10:51 1 EACH Vancomycin HCl (Vancomycin Trough Level) 1 each 1X ONCE 08/29/18 08:30 08/29/18 08:31 DC 08/29/18 08:30 1 EACH Vancomycin HCl 2 gm/Sodium Chloride 500 ml @ 250 mls/hr Q12H 08/28/18 09:00 08/29/18 11:36 DC 08/29/18 10:41 250 MLS/HR Labs: Lab Laboratory Tests Test 08/29/18 11:39 08/29/18 16:54 08/29/18 20:35 08/30/18 06:00 Glucose (Fingerstick) 126 mg/dL (70-99) 91 mg/dL (70-99) 105 mg/dL (70-99) Creatinine 1.3 mg/dL (0.7-1.3) Estimated GFR (Cockcroft-Gault) 56.9 Test 08/30/18 08:05 Glucose (Fingerstick) 133 mg/dL (70-99) Objective: Assessment: Acute hypoxic resp failure improving on O2 by NC normal procalcitonin Pneumonia acute on chronic failed outpt levaquin etiology could be infectious vs noninfectious immunotherpy induced vs radiation pneumonitis ,failed outpt levaquin Lung ca s/p CT and RT on immunotherapy Immunosupression DM LILIA History of pulmonary embolism. Diarrhea. Clostridium difficile and stool cultures ordered. Chronic obstructive pulmonary disease. Anemia. Port-A-Cath in place, left chest wall without any complications. History of bronchitis. Morbid obesity. Plan: Plan of Care DC Zosyn cont empiric doxycycline f/u RVP and infectious disease serologies unable to give sputum for C/S Urine legionella and strep pneu ag Urine histo ag,crypto ag f/u labs and cults cont supportive care add bnp to labs done today LIS MARTE MD Aug 30, 2018 09:17
[2018-08-30 11:24] VITALS: BP 133/88
--- NOTE | 2018-08-30 13:02 | PDOC ---
PROGRESS NOTES Chief Complaint Chief Complaint sepsis Pneumonia right sided, acute hypoxic respiratory failure, POA [place] lung, status post chemotherapy and radiation therapy May 2018 History of Present Illness History of Present Illness Pt seen and examined VSS ALLYN RN Vitals Vitals Vital Signs Date Time Temp Pulse Resp B/P (MAP) Pulse Ox O2 Delivery O2 Flow Rate FiO2 08/30/18 11:32 Nasal Cannula 3.0 08/30/18 11:24 98.1 89 18 133/88 (103) 94 98.1 Physical Exam Physical Exam GEN Axox3 tired appearing male in nad HEENT: Normocephalic, atraumatic, anicteric. No thrush. No sinus tenderness. NECK: Supple. No JVD. No lymphadenopathy. LUNGS: Clear bilaterally. No wheezing. HEART: S1, S2. No gallops or murmurs. ABDOMEN: Soft, obese. Bowel sounds present, nondistended, nontender. EXTREMITIES: No edema, no cyanosis, no clubbing. DERMATOLOGIC: No generalized rash, mild scattered macular rash left upper extremity, fading per patient. No skin breakdown, no blisters, no ulceration. NEUROLOGIC: Alert and oriented x 3, grossly nonfocal. PSYCHIATRIC: Appropriate mood and affect. CHEST: Port-A-Cath site left chest wall looks okay. General: Alert, Oriented X3, Cooperative, No acute distress Heart: Regular rate, Normal S1 Lungs: Crackles Abdomen: Soft, No tenderness, No hepatosplenomegaly, No masses, Other (hyper active bowel sounds) Extremities: No clubbing, No cyanosis, No edema, Normal pulses, No tenderness/ swelling Skin: No rashes, No breakdown, No significant lesion Labs LABS Laboratory Tests Test 08/29/18 16:54 08/29/18 20:35 08/30/18 06:00 08/30/18 08:05 Glucose (Fingerstick) 91 mg/dL (70-99) 105 mg/dL (70-99) 133 mg/dL (70-99) Creatinine 1.3 mg/dL (0.7-1.3) Estimated GFR (Cockcroft-Gault) 56.9 Test 08/30/18 12:04 Glucose (Fingerstick) 79 mg/dL (70-99) Review of Systems Review of Systems co weakness c o pain Assessment and Plan Assessmemt and Plan sepsis Pneumonia right sided, acute hypoxic respiratory failure, POA [place] lung, status post chemotherapy and radiation therapy May 2018 Plan IV antibx Heme Onc following Home meds IV fluids Port care PTOT labs Comment Review of Relevant I have reviewed the following items krupa (where applicable) has been applied. Labs Laboratory Tests Test 08/28/18 17:04 08/28/18 20:26 08/29/18 05:20 08/29/18 07:21 Glucose (Fingerstick) 143 mg/dL (70-99) 160 mg/dL (70-99) 125 mg/dL (70-99) Sodium Level 140 mmol/L (136-145) Potassium Level 3.9 mmol/L (3.5-5.1) Chloride Level 106 mmol/L (98-107) Carbon Dioxide Level 27 mmol/L (21-32) Anion Gap 7 (6-14) Blood Urea Nitrogen 15 mg/dL (8-26) Creatinine 1.3 mg/dL (0.7-1.3) Estimated GFR (Cockcroft-Gault) 56.9 Glucose Level 113 mg/dL (70-99) Calcium Level 8.4 mg/dL (8.5-10.1) Procalcitonin < 0.10 ng/mL (0.00-0.10) Test 08/29/18 09:00 08/29/18 09:10 08/29/18 11:39 08/29/18 16:54 Vancomycin Level Trough 15.0 mcg/mL (10.0-20.0) Vancomycin Last Dose Date 08/28/18 Vancomycin Last Dose Time 2100 Clostridium difficile Toxin B Gene Negative (Negative) Glucose (Fingerstick) 126 mg/dL (70-99) 91 mg/dL (70-99) Test 08/29/18 20:35 08/30/18 06:00 08/30/18 08:05 08/30/18 12:04 Glucose (Fingerstick) 105 mg/dL (70-99) 133 mg/dL (70-99) 79 mg/dL (70-99) Creatinine 1.3 mg/dL (0.7-1.3) Estimated GFR (Cockcroft-Gault) 56.9 Laboratory Tests Test 08/29/18 16:54 08/29/18 20:35 08/30/18 06:00 08/30/18 08:05 Glucose (Fingerstick) 91 mg/dL (70-99) 105 mg/dL (70-99) 133 mg/dL (70-99) Creatinine 1.3 mg/dL (0.7-1.3) Estimated GFR (Cockcroft-Gault) 56.9 Test 08/30/18 12:04 Glucose (Fingerstick) 79 mg/dL (70-99) Microbiology 08/27/18 Blood Culture - Preliminary, Resulted NO GROWTH AFTER 2 DAYS Medications Current Medications Ipratropium [place] (Atrovent) 0.5 mg 1X ONCE NEB Last administered on at 16:05; Start 08/27/18 at 15:45; Stop 08/27/18 at 15:46; Status DC Methylprednisolone Sodium Succinate (SOLU-Medrol 125MG VIAL) 125 mg 1X ONCE IV Last administered on 08/27/18at 15:59; Start 08/27/18 at 15:45; Stop at 15:46; Status DC Iohexol (Omnipaque 300 Mg/ml) 75 ml 1X ONCE IV Last administered on at 15:45; Start 08/27/18 at 15:45; Stop 08/27/18 at 15:46; Status DC Info (CONTRAST GIVEN -- Rx MONITORING) 1 each PRN DAILY PRN MC SEE COMMENTS; Start 08/27/18 at 15:45; Stop 08/29/18 at 15:44; Status DC Ceftriaxone Sodium (Rocephin) 1 gm 1X ONCE IVP Last administered on at 18:53; Start 08/27/18 at 18:00; Stop 08/27/18 at 18:01; Status DC Azithromycin 250 ml @ 250 mls/hr 1X ONCE IV ; Start 08/27/18 at 18:00; Stop 08/27/18 at 18:59; Status DC Ondansetron HCl (Zofran) 4 mg PRN Q8HRS PRN IV NAUSEA/VOMITING; Start at 18:15; Stop 08/27/18 at 19:01; Status DC Acetaminophen (Tylenol) 650 mg PRN Q4HRS PRN PO FEVER Last administered on 08/05at 09:31; Start 08/27/18 at 18:15; Stop 08/28/18 at 18:14; Status DC Albuterol/ Ipratropium (Duoneb) 3 ml RTQID NEB ; Start 08/27/18 at 20:00; Stop 08/27/18 at 20:00; Status DC Ondansetron HCl (Zofran) 4 mg PRN Q6HRS PRN IV NAUSEA/VOMITING; Start at 19:15 Vancomycin HCl (Vanco Per Pharmacy) 1 each PRN DAILY PRN MC SEE COMMENTS Last administered on 08/29/18at 10:51; Start 08/27/18 at 19:00; Stop 08/29/18 at 11 :38; Status DC Piperacillin Sod/ Tazobactam Sod (Zosyn Per Pharmacy) 1 each PRN DAILY PRN MC SEE COMMENTS; Start 08/27/18 at 19:00 Guaifenesin (Robitussin Dm) 10 ml PRN Q6HRS PRN PO COUGH; Start 08/27/18 at 19 :00 Albuterol/ Ipratropium (Duoneb) 3 ml RTQID NEB Last administered on 08/30/18at 11:31; Start 08/27/18 at 20:00 Diphenhydramine HCl (Benadryl) 25 mg PRN QHS PRN PO INSOMNIA; Start 08/27/18 at 19:00 Sodium Chloride 1,000 ml @ 100 mls/hr 1X ONCE IV Last administered on at 20:11; Start 08/27/18 at 19:15; Stop 08/28/18 at 05:14; Status DC Lisinopril (Prinivil) 10 mg DAILY PO ; Start 08/28/18 at 09:00; Stop 08/28/18 at 09:47; Status DC Oxycodone/ Acetaminophen (Percocet 5/325) 1 tab PRN Q6HRS PRN PO PAIN Last administered on 08/29/18at 20:49; Start 08/27/18 at 19:15 Budesonide (Pulmicort) 0.5 mg RTBID NEB Last administered on 08/30/18at 07:45; Start 08/27/18 at 20:00 Metformin HCl (Glucophage) 1,000 mg BIDWMEALS PO Last administered on at 08:19; Start 08/29/18 at 17:00 Pantoprazole Sodium (Protonix) 40 mg DAILYAC PO Last administered on at 08:19; Start 08/28/18 at 07:30 Ondansetron HCl (Zofran Odt) 8 mg PRN BID PRN PO NAUSEA/VOMITING; Start at 19:15 Rivaroxaban (Xarelto) 20 mg DAILYWSUP PO ; Start 08/27/18 at 20:00; Stop 08/28 at 13:15; Status DC Insulin Human Lispro (HumaLOG) 0-9 UNITS TIDWMEALS SQ Last administered on 08/05at 12:49; Start 08/27/18 at 19:30 Dextrose (Dextrose 50%-Water Syringe) 12.5 gm PRN Q15MIN PRN IV SEE COMMENTS; Start 08/27/18 at 19:15 Piperacillin Sod/ Tazobactam Sod 4.5 gm/Sodium Chloride 100 ml @ 200 mls/hr Q6HRS IV Last administered on 08/30/18at 05:57; Start 08/27/18 at 19:30; Stop 08/30/18 at 12:34; Status DC Vancomycin HCl 2 gm/Sodium Chloride 500 ml @ 250 mls/hr 1X ONCE IV Last administered on 08/27/18at 21:10; Start 08/27/18 at 20:00; Stop 08/27/18 at 21 :59; Status DC Sodium Chloride 1,000 ml @ 100 mls/hr Q10H IV ; Start 08/27/18 at 20:30; Stop 08/27/18 at 20:30; Status DC Potassium Chloride/Sodium Chloride 1,000 ml @ 100 mls/hr Q10H IV Last administered on 08/30/18at 06:07; Start 08/27/18 at 20:30 Vancomycin HCl (Vancomycin Trough Level) 1 each 1X ONCE MC Last administered on 08/29/18at 08:30; Start 08/29/18 at 08:30; Stop 08/29/18 at 08:31; Status DC Vancomycin HCl 2 gm/Sodium Chloride 500 ml @ 250 mls/hr Q12H IV Last administered on 08/29/18at 10:41; Start 08/28/18 at 09:00; Stop 08/29/18 at 11 :36; Status DC Amlodipine Besylate (Norvasc) 5 mg DAILY PO Last administered on 08/30/18at 08: 20; Start 08/28/18 at 09:00 Acetaminophen (Tylenol) 500 mg BID PO Last administered on 08/30/18at 06:07; Start 08/28/18 at 09:00 Non-Formulary Medication (Edoxaban Tosylate (Savaysa)) 60 mg DAILYWSUP PO ; Start 08/28/18 at 17:00; Status UNV Glipizide (Glucotrol Er) 5 mg BIDAC PO Last administered on 08/30/18at 08:19; Start 08/28/18 at 09:00 Levothyroxine Sodium (Synthroid) 50 mcg DAILY06 PO Last administered on at 05:57; Start 08/28/18 at 10:30 Non-Formulary Medication (Edoxaban Tosylate (Savaysa)) 60 mg DAILYWSUP PO Last administered on 08/29/18at 18:11; Start 08/28/18 at 17:00 Doxycycline Hyclate (Vibra-Tab) 100 mg BID PO Last administered on 08/30/18at 08:19; Start 08/28/18 at 14:00 Active Scripts Active Reported Acetaminophen 500 Mg Tablet 1 Tab PO BID Amlodipine Besylate 5 Mg Tablet 5 Mg PO DAILY Levofloxacin 500 Mg Tablet 1 Tab PO DAILY Savaysa (Edoxaban Tosylate) 60 Mg Tablet 60 Mg PO DAILYWSUP Glipizide Er (Glipizide) 5 Mg Tab.er.24 1 Tab PO BID Synthroid (Levothyroxine Sodium) 50 Mcg Tablet 1 Tab PO DAILY07 Imfinzi (Durvalumab) 120 Mg/2.4 Ml Vial 120 Mg IV Q 2WEEKS PER REGIMEN Percocet 5-325 Mg Tablet (Oxycodone/Acetaminophen) 1 Each Tablet 1 Tab PO PRN Q6HRS PRN Zofran (Ondansetron Hcl) 8 Mg Tablet 8 Mg PO BID PRN Prilosec Otc (Omeprazole Magnesium) 20 Mg Tablet.dr 20 Mg PO BID Symbicort 160-4.5 Mcg Inhaler (Budesonide/Formoterol Fumarate) 10.2 Gm Hfa.aer.ad 2 Puff IH BID Metformin Hcl 1,000 Mg Tablet 1,000 Mg PO BIDWMEALS Vitals/I & O Vital Sign - Last 24 Hours 08/29/18 08/29/18 08/29/18 08/29/18 13:25 14:25 15:00 15:54 Temp 97.6 97.6 Pulse 86 Resp 20 B/P (MAP) 127/82 (97) Pulse Ox 96 96 O2 Delivery Nasal Cannula Nasal Cannula Nasal Cannula Nasal Cannula O2 Flow Rate 2.0 3.0 2.0 08/29/18 08/29/18 08/29/18 08/29/18 19:44 20:05 20:15 20:15 Temp 98.5 98.5 Pulse 85 Resp 16 B/P (MAP) 138/89 (105) Pulse Ox 93 92 92 O2 Delivery Nasal Cannula Nasal Cannula Nasal Cannula Nasal Cannula O2 Flow Rate 2.0 2.0 2.0 2.0 08/29/18 08/30/18 08/30/18 08/30/18 23:34 03:33 07:00 07:46 Temp 98.2 98.0 98.0 98.2 98.0 98.0 Pulse 97 108 108 Resp 20 18 18 B/P (MAP) 119/75 (90) 147/93 (111) 158/93 (114) Pulse Ox 90 92 93 95 O2 Delivery Nasal Cannula Nasal Cannula Nasal Cannula Nasal Cannula O2 Flow Rate 2.0 2.0 2.0 3.0 08/30/18 08/30/18 08/30/18 08/30/18 08:00 08:20 11:24 11:32 Temp 98.1 98.1 Pulse 108 89 Resp 18 B/P (MAP) 147/93 133/88 (103) Pulse Ox 94 O2 Delivery Nasal Cannula Nasal Cannula Nasal Cannula O2 Flow Rate 3.0 2.0 3.0 Intake and Output 08/29/18 08/29/18 08/30/18 15:00 23:00 07:00 Intake Total 1080 ml 240 ml 1100 ml Output Total 600 ml 500 ml 600 ml Balance 480 ml -260 ml 500 ml CASTLE,NIAL K III DO Aug 30, 2018 13:02
[2018-08-30 15:15] VITALS: BP 137/85
[2018-08-30] MEDS: NON FORMULARY ITEM (Edoxaban Tosylate (Savaysa) 60 MG) PO SCH (17:04)
[2018-08-30 19:05] VITALS: BP 132/85
[2018-08-30 23:05] VITALS: BP 124/91
[2018-08-31 03:05] VITALS: BP 107/58
[2018-08-31] MEDS: LEVOTHYROXINE 50 MCG TABLET PO SCH (06:27)
[2018-08-31] MEDS: oxyCODONE/APAP 5/325 1 TAB TABLET PO PRN (06:33)
--- NOTE | 2018-08-31 06:53 | PDOC ---
PROGRESS NOTES Chief Complaint Chief Complaint sepsis Pneumonia right sided, acute hypoxic respiratory failure, POA [place] lung, status post chemotherapy and radiation therapy May 2018 needs home o2 arranged today, pending History of Present Illness History of Present Illness Pt seen and examined VSS ALLYN RN home when o2 arranged pcxr pending Vitals Vitals Vital Signs Date Time Temp Pulse Resp B/P (MAP) Pulse Ox O2 Delivery O2 Flow Rate FiO2 08/31/18 06:33 Nasal Cannula 2.0 08/31/18 03:05 99.1 90 20 107/58 (74) 91 99.1 Physical Exam Physical Exam GEN Axox3 tired appearing male in nad HEENT: Normocephalic, atraumatic, anicteric. No thrush. No sinus tenderness. NECK: Supple. No JVD. No lymphadenopathy. LUNGS: Clear bilaterally. No wheezing. HEART: S1, S2. No gallops or murmurs. ABDOMEN: Soft, obese. Bowel sounds present, nondistended, nontender. EXTREMITIES: No edema, no cyanosis, no clubbing. DERMATOLOGIC: No generalized rash, mild scattered macular rash left upper extremity, fading per patient. No skin breakdown, no blisters, no ulceration. NEUROLOGIC: Alert and oriented x 3, grossly nonfocal. PSYCHIATRIC: Appropriate mood and affect. CHEST: Port-A-Cath site left chest wall looks okay. General: Alert, Oriented X3, Cooperative, No acute distress, mild distress Heart: Regular rate, Normal S1 Lungs: Crackles Abdomen: Soft, No tenderness, No hepatosplenomegaly, No masses, Other (hyper active bowel sounds) Extremities: No clubbing, No cyanosis, No edema, Normal pulses, No tenderness/ swelling Skin: No rashes, No breakdown, No significant lesion Labs LABS PQRS Compliance statement: One or more of the following individualized dose reduction techniques were utilized for this examination: 1. Automated exposure control. 2. Adjustment of the mA and/or kV according to patient size. 3. Use of iterative reconstruction technique. Indication:CHEST PAIN, SHORTNESS OF BREATH, PRIOR HX OF PE TECHNIQUE: CT angiogram of the chest with IV contrast with multiplanar MIP reformats. COMPARISON:CT chest from 06/01/2018 FINDINGS: Diagnostic quality PE study. There are no central, segmental or subsegmental filling defects in the pulmonary arteries. Heart is normal in size. No pericardial or pleural effusion. Left chest wall Chemo-Port is seen with its tip in the SVC. No enlarged axillary adenopathy. Enlarged mediastinal and hilar lymph nodes are seen. Index lymph nodes as follows: 1.9 x 1.3 cm aortopulmonary recess lymph node (series 3 image 46). Right hilar lymph node measuring 2.6 x 1.6 cm (series 3 image 64). Multiple calcified mediastinal and left hilar lymph nodes are seen. Diffuse emphysematous changes are seen in the lungs. There are new interstitial opacities with consolidation in the region of right hilum. Findings are new when compared to previous exam from 06/01/2018. Diffuse hepatic steatosis. The visualized sections through the spleen, gallbladder, pancreas, adrenals and left kidney within normal limits. No suspicious bony lesion. IMPRESSION: 1. No PE. 2. Bilateral lung disease, new from previous exam from 06/01/2018 suggests right hilar pneumonia with superimposed interstitial infection. Follow-up CT recommended after medical therapy to ensure resolution. 3. Enlarged chest lymph nodes likely reactive. 4. Hepatic steatosis. Electronically signed by: Yazan Strong DO (08/27/2018 5:36 PM) [facility] Laboratory Tests Test 08/30/18 08:05 08/30/18 12:04 08/30/18 17:00 08/30/18 20:39 Glucose (Fingerstick) 133 mg/dL (70-99) 79 mg/dL (70-99) 105 mg/dL (70-99) 134 mg/dL (70-99) Comment Review of Relevant I have reviewed the following items krupa (where applicable) has been applied. Labs Laboratory Tests Test 08/29/18 07:21 08/29/18 09:00 08/29/18 09:10 08/29/18 11:39 Glucose (Fingerstick) 125 mg/dL (70-99) 126 mg/dL (70-99) Vancomycin Level Trough 15.0 mcg/mL (10.0-20.0) Vancomycin Last Dose Date 08/28/18 Vancomycin Last Dose Time 2100 Clostridium difficile Toxin B Gene Negative (Negative) Test 08/29/18 16:54 08/29/18 20:35 08/30/18 06:00 08/30/18 08:05 Glucose (Fingerstick) 91 mg/dL (70-99) 105 mg/dL (70-99) 133 mg/dL (70-99) Creatinine 1.3 mg/dL (0.7-1.3) Estimated GFR (Cockcroft-Gault) 56.9 KH-Gvm-A-Type Natriuretic Peptide 97 pg/mL (0-124) Test 08/30/18 12:04 08/30/18 17:00 08/30/18 20:39 Glucose (Fingerstick) 79 mg/dL (70-99) 105 mg/dL (70-99) 134 mg/dL (70-99) Laboratory Tests Test 08/30/18 08:05 08/30/18 12:04 08/30/18 17:00 08/30/18 20:39 Glucose (Fingerstick) 133 mg/dL (70-99) 79 mg/dL (70-99) 105 mg/dL (70-99) 134 mg/dL (70-99) Microbiology 08/27/18 Blood Culture - Preliminary, Resulted NO GROWTH AFTER 3 DAYS Medications Current Medications Ipratropium [place] (Atrovent) 0.5 mg 1X ONCE NEB Last administered on at 16:05; Start 08/27/18 at 15:45; Stop 08/27/18 at 15:46; Status DC Methylprednisolone Sodium Succinate (SOLU-Medrol 125MG VIAL) 125 mg 1X ONCE IV Last administered on 08/27/18at 15:59; Start 08/27/18 at 15:45; Stop at 15:46; Status DC Iohexol (Omnipaque 300 Mg/ml) 75 ml 1X ONCE IV Last administered on at 15:45; Start 08/27/18 at 15:45; Stop 08/27/18 at 15:46; Status DC Info (CONTRAST GIVEN -- Rx MONITORING) 1 each PRN DAILY PRN MC SEE COMMENTS; Start 08/27/18 at 15:45; Stop 08/29/18 at 15:44; Status DC Ceftriaxone Sodium (Rocephin) 1 gm 1X ONCE IVP Last administered on at 18:53; Start 08/27/18 at 18:00; Stop 08/27/18 at 18:01; Status DC Azithromycin 250 ml @ 250 mls/hr 1X ONCE IV ; Start 08/27/18 at 18:00; Stop 08/27/18 at 18:59; Status DC Ondansetron HCl (Zofran) 4 mg PRN Q8HRS PRN IV NAUSEA/VOMITING; Start at 18:15; Stop 08/27/18 at 19:01; Status DC Acetaminophen (Tylenol) 650 mg PRN Q4HRS PRN PO FEVER Last administered on 08/05at 09:31; Start 08/27/18 at 18:15; Stop 08/28/18 at 18:14; Status DC Albuterol/ Ipratropium (Duoneb) 3 ml RTQID NEB ; Start 08/27/18 at 20:00; Stop 08/27/18 at 20:00; Status DC Ondansetron HCl (Zofran) 4 mg PRN Q6HRS PRN IV NAUSEA/VOMITING; Start at 19:15 Vancomycin HCl (Vanco Per Pharmacy) 1 each PRN DAILY PRN MC SEE COMMENTS Last administered on 08/29/18at 10:51; Start 08/27/18 at 19:00; Stop 08/29/18 at 11 :38; Status DC Piperacillin Sod/ Tazobactam Sod (Zosyn Per Pharmacy) 1 each PRN DAILY PRN MC SEE COMMENTS; Start 08/27/18 at 19:00; Stop 08/30/18 at 20:12; Status DC Guaifenesin (Robitussin Dm) 10 ml PRN Q6HRS PRN PO COUGH; Start 08/27/18 at 19 :00 Albuterol/ Ipratropium (Duoneb) 3 ml RTQID NEB Last administered on 08/30/18at 21:47; Start 08/27/18 at 20:00 Diphenhydramine HCl (Benadryl) 25 mg PRN QHS PRN PO INSOMNIA; Start 08/27/18 at 19:00 Sodium Chloride 1,000 ml @ 100 mls/hr 1X ONCE IV Last administered on at 20:11; Start 08/27/18 at 19:15; Stop 08/28/18 at 05:14; Status DC Lisinopril (Prinivil) 10 mg DAILY PO ; Start 08/28/18 at 09:00; Stop 08/28/18 at 09:47; Status DC Oxycodone/ Acetaminophen (Percocet 5/325) 1 tab PRN Q6HRS PRN PO PAIN Last administered on 08/31/18at 06:33; Start 08/27/18 at 19:15 Budesonide (Pulmicort) 0.5 mg RTBID NEB Last administered on 08/30/18at 21:47; Start 08/27/18 at 20:00 Metformin HCl (Glucophage) 1,000 mg BIDWMEALS PO Last administered on at 17:01; Start 08/29/18 at 17:00 Pantoprazole Sodium (Protonix) 40 mg DAILYAC PO Last administered on at 08:19; Start 08/28/18 at 07:30 Ondansetron HCl (Zofran Odt) 8 mg PRN BID PRN PO NAUSEA/VOMITING; Start at 19:15 Rivaroxaban (Xarelto) 20 mg DAILYWSUP PO ; Start 08/27/18 at 20:00; Stop 08/28 at 13:15; Status DC Insulin Human Lispro (HumaLOG) 0-9 UNITS TIDWMEALS SQ Last administered on 08/05at 12:49; Start 08/27/18 at 19:30 Dextrose (Dextrose 50%-Water Syringe) 12.5 gm PRN Q15MIN PRN IV SEE COMMENTS; Start 08/27/18 at 19:15 Piperacillin Sod/ Tazobactam Sod 4.5 gm/Sodium Chloride 100 ml @ 200 mls/hr Q6HRS IV Last administered on 08/30/18at 05:57; Start 08/27/18 at 19:30; Stop 08/30/18 at 12:34; Status DC Vancomycin HCl 2 gm/Sodium Chloride 500 ml @ 250 mls/hr 1X ONCE IV Last administered on 08/27/18at 21:10; Start 08/27/18 at 20:00; Stop 08/27/18 at 21 :59; Status DC Sodium Chloride 1,000 ml @ 100 mls/hr Q10H IV ; Start 08/27/18 at 20:30; Stop 08/27/18 at 20:30; Status DC Potassium Chloride/Sodium Chloride 1,000 ml @ 100 mls/hr Q10H IV Last administered on 08/31/18at 06:27; Start 08/27/18 at 20:30 Vancomycin HCl (Vancomycin Trough Level) 1 each 1X ONCE MC Last administered on 08/29/18at 08:30; Start 08/29/18 at 08:30; Stop 08/29/18 at 08:31; Status DC Vancomycin HCl 2 gm/Sodium Chloride 500 ml @ 250 mls/hr Q12H IV Last administered on 08/29/18at 10:41; Start 08/28/18 at 09:00; Stop 08/29/18 at 11 :36; Status DC Amlodipine Besylate (Norvasc) 5 mg DAILY PO Last administered on 08/30/18at 08: 20; Start 08/28/18 at 09:00 Acetaminophen (Tylenol) 500 mg BID PO Last administered on 08/30/18at 21:34; Start 08/28/18 at 09:00 Non-Formulary Medication (Edoxaban Tosylate (Savaysa)) 60 mg DAILYWSUP PO ; Start 08/28/18 at 17:00; Status UNV Glipizide (Glucotrol Er) 5 mg BIDAC PO Last administered on 08/30/18at 17:01; Start 08/28/18 at 09:00 Levothyroxine Sodium (Synthroid) 50 mcg DAILY06 PO Last administered on at 06:27; Start 08/28/18 at 10:30 Non-Formulary Medication (Edoxaban Tosylate (Savaysa)) 60 mg DAILYWSUP PO Last administered on 08/30/18at 17:04; Start 08/28/18 at 17:00 Doxycycline Hyclate (Vibra-Tab) 100 mg BID PO Last administered on 08/30/18at 21:34; Start 08/28/18 at 14:00 Active Scripts Active Reported Acetaminophen 500 Mg Tablet 1 Tab PO BID Amlodipine Besylate 5 Mg Tablet 5 Mg PO DAILY Levofloxacin 500 Mg Tablet 1 Tab PO DAILY Savaysa (Edoxaban Tosylate) 60 Mg Tablet 60 Mg PO DAILYWSUP Glipizide Er (Glipizide) 5 Mg Tab.er.24 1 Tab PO BID Synthroid (Levothyroxine Sodium) 50 Mcg Tablet 1 Tab PO DAILY07 Imfinzi (Durvalumab) 120 Mg/2.4 Ml Vial 120 Mg IV Q 2WEEKS PER REGIMEN Percocet 5-325 Mg Tablet (Oxycodone/Acetaminophen) 1 Each Tablet 1 Tab PO PRN Q6HRS PRN Zofran (Ondansetron Hcl) 8 Mg Tablet 8 Mg PO BID PRN Prilosec Otc (Omeprazole Magnesium) 20 Mg Tablet.dr 20 Mg PO BID Symbicort 160-4.5 Mcg Inhaler (Budesonide/Formoterol Fumarate) 10.2 Gm Hfa.aer.ad 2 Puff IH BID Metformin Hcl 1,000 Mg Tablet 1,000 Mg PO BIDWMEALS Vitals/I & O Vital Sign - Last 24 Hours 08/30/18 08/30/18 08/30/18 08/30/18 07:00 07:46 08:00 08:20 Temp 98.0 98.0 Pulse 108 108 Resp 18 B/P (MAP) 158/93 (114) 147/93 Pulse Ox 93 95 O2 Delivery Nasal Cannula Nasal Cannula Nasal Cannula O2 Flow Rate 2.0 3.0 3.0 08/30/18 08/30/18 08/30/18 08/30/18 11:24 11:32 15:15 15:54 Temp 98.1 98.1 98.1 98.1 Pulse 89 102 Resp 18 18 B/P (MAP) 133/88 (103) 137/85 (102) Pulse Ox 94 96 O2 Delivery Nasal Cannula Nasal Cannula Nasal Cannula Nasal Cannula O2 Flow Rate 2.0 3.0 2.0 3.0 08/30/18 08/30/18 08/30/18 08/30/18 19:05 20:00 21:49 23:05 Temp 98.3 97.5 98.3 97.5 Pulse 98 112 Resp 20 20 B/P (MAP) 132/85 (101) 124/91 (102) Pulse Ox 93 94 91 O2 Delivery Nasal Cannula Nasal Cannula Nasal Cannula Nasal Cannula O2 Flow Rate 2.0 3.0 3.0 2.0 08/31/18 08/31/18 03:05 06:33 Temp 99.1 99.1 Pulse 90 Resp 20 B/P (MAP) 107/58 (74) Pulse Ox 91 O2 Delivery Nasal Cannula Nasal Cannula O2 Flow Rate 2.0 2.0 Intake and Output 08/30/18 08/30/18 08/31/18 15:00 23:00 07:00 Intake Total 750 ml Balance 750 ml FULBRIGHT,PAMELA W MD Aug 31, 2018 06:53
[2018-08-31] MEDS: IPRATRPIUM/ALBUTEROL 0.5/2.5MG 3 ML NEBU. NEB SCH ×3 (07:25→15:47)
[2018-08-31] MEDS: BUDESONIDE 0.5 MG/2 ML NEBU. NEB SCH (07:25)
[2018-08-31 07:43] VITALS: BP 139/86
[2018-08-31] MEDS: INSULIN LISPRO 300 UNITS/3 ML INSULN.PEN. SQ SCH ×2 (07:57→12:00)
[2018-08-31] MEDS: ACETAMINOPHEN 500 MG TABLET PO SCH (08:02)
[2018-08-31] MEDS: DOXYCYCLINE HYCLATE 100 MG TABLET PO SCH (08:02)
[2018-08-31] MEDS: metFORMIN 500 MG TABLET PO SCH (08:02)
[2018-08-31] MEDS: amLODIPine BESYLATE 5 MG TABLET PO SCH (08:02)
[2018-08-31] MEDS: PANTOPRAZOLE 40 MG TABLET.DR. PO SCH (08:02)
[2018-08-31] MEDS: glipiZIDE ER 2.5 MG TAB.ER.24 PO SCH (08:02)
--- NOTE | 2018-08-31 09:00 | PDOC ---
SUBJECTIVE Subjective S: Continues to do better each day, on 2-3 L oxygen, up w/ PT yesterday O: Physical exam: Gen.: Obese, middle-aged, resting in bed in no acute distress Lungs: Breathing comfortably on 2 L nasal cannula Psychiatric: Pleasant mood and affect Labs: last CBC nl Assessment and Plan: He is a 58-year-old male with stage III lung cancer status post recent chemoradiotherapy currently on durvalumab maintenance admitted with pneumonia, unsure how much is pneumonitis related to durvalumab though he has continued to improve without the use of steroids other than one dose in the ER... Pneumonia: appreciate ID assistance, on oral antibiotics, still requiring oxygen History of PE: No current PE, back on his home dose of edoxaban 60 mg daily Diarrhea: C. difficile neg COPD: On nebulizers, did get 1 dose of Solu-Medrol 27 August Diabetes: Per primary Lung cancer: Maintenance chemotherapy on hold, may be able to redose durvalumab ? will await completion of antibiotic treatment and follow-up imaging before deciding on further maintenance therapy Disposition: Likely today, however we will need home oxygen it appears at this time, he will follow-up with us after discharge as needed Thank you kindly and please do not hesitate to call with questions. OBJECTIVE Vital Signs Vital Signs Date Time Temp Pulse Resp B/P (MAP) Pulse Ox O2 Delivery O2 Flow Rate FiO2 08/31/18 08:02 93 139/86 08/31/18 07:43 97.4 93 20 139/86 (103) 92 Nasal Cannula 2.0 97.4 08/31/18 07:26 93 Nasal Cannula 3.0 08/31/18 06:33 Nasal Cannula 2.0 08/31/18 03:05 99.1 90 20 107/58 (74) 91 Nasal Cannula 2.0 99.1 08/30/18 23:05 97.5 112 20 124/91 (102) 91 Nasal Cannula 2.0 97.5 08/30/18 21:49 94 Nasal Cannula 3.0 08/30/18 20:00 Nasal Cannula 3.0 08/30/18 19:05 98.3 98 20 132/85 (101) 93 Nasal Cannula 2.0 98.3 08/30/18 15:54 Nasal Cannula 3.0 08/30/18 15:15 98.1 102 18 137/85 (102) 96 Nasal Cannula 2.0 98.1 08/30/18 11:32 Nasal Cannula 3.0 08/30/18 11:24 98.1 89 18 133/88 (103) 94 Nasal Cannula 2.0 98.1 I & O Intake and Output 08/31/18 07:00 Intake Total 750 ml Balance 750 ml Intake Oral 750 ml # Voids 3 COMMENT Lab Laboratory Tests Test 08/30/18 12:04 08/30/18 17:00 08/30/18 20:39 08/31/18 07:35 Glucose (Fingerstick) 79 mg/dL (70-99) 105 mg/dL (70-99) 134 mg/dL (70-99) 118 mg/dL (70-99) JAY DESAI MD Aug 31, 2018 09:00
[2018-08-31 11:37] VITALS: BP 120/83
--- NOTE | 2018-08-31 12:01 | PDOC ---
Infectious Disease Note Subjective: Subjective Pt feels better today denies any fever or chills less sob today compared no sputum production no chestpain no n/v/d/abdo pain/gu symptoms ROS: ROS Negative except for above. Vital Signs: Vital Signs Vital Signs Date Time Temp Pulse Resp B/P (MAP) Pulse Ox O2 Delivery O2 Flow Rate FiO2 08/31/18 11:51 93 Nasal Cannula 3.0 08/31/18 11:37 97.5 95 20 120/83 (95) 97.5 Physical Exam: PHYSICAL EXAM GEN Axox3 tired appearing male in nad HEENT: Normocephalic, atraumatic, anicteric. No thrush. No sinus tenderness. NECK: Supple. No JVD. No lymphadenopathy. LUNGS: Clear bilaterally. No wheezing. HEART: S1, S2. No gallops or murmurs. ABDOMEN: Soft, obese. Bowel sounds present, nondistended, nontender. EXTREMITIES: No edema, no cyanosis, no clubbing. DERMATOLOGIC: No generalized rash, mild scattered macular rash left upper extremity, fading per patient. No skin breakdown, no blisters, no ulceration. NEUROLOGIC: Alert and oriented x 3, grossly nonfocal. PSYCHIATRIC: Appropriate mood and affect. CHEST: Port-A-Cath site left chest wall looks okay. Medications: Inpatient Meds: Current Medications Medications (Trade) Dose Ordered Sig/Christina Start Time Stop Time Status Last Admin Dose Admin Acetaminophen (Tylenol) 500 mg BID 08/28/18 09:00 08/31/18 08:02 500 MG Albuterol/ Ipratropium (Duoneb) 3 ml RTQID 08/27/18 20:00 08/31/18 11:50 3 ML Amlodipine Besylate (Norvasc) 5 mg DAILY 08/28/18 09:00 08/31/18 08:02 5 MG Azithromycin 250 ml @ 250 mls/hr 1X ONCE 08/27/18 18:00 08/27/18 18:59 DC Budesonide (Pulmicort) 0.5 mg RTBID 08/27/18 20:00 08/31/18 07:25 0.5 MG Ceftriaxone Sodium (Rocephin) 1 gm 1X ONCE 08/27/18 18:00 08/27/18 18:01 DC 08/27/18 18:53 1 GM Dextrose (Dextrose 50%-Water Syringe) 12.5 gm PRN Q15MIN PRN 08/27/18 19:15 Diphenhydramine HCl (Benadryl) 25 mg PRN QHS PRN 08/27/18 19:00 Doxycycline Hyclate (Vibra-Tab) 100 mg BID 08/28/18 14:00 08/31/18 08:02 100 MG Glipizide (Glucotrol Er) 5 mg BIDAC 08/28/18 09:00 08/31/18 08:02 5 MG Guaifenesin (Robitussin Dm) 10 ml PRN Q6HRS PRN 08/27/18 19:00 Info (CONTRAST GIVEN -- Rx MONITORING) 1 each PRN DAILY PRN 08/27/18 15:45 08/29/18 15:44 DC Insulin Human Lispro (HumaLOG) 0-9 UNITS TIDWMEALS 08/27/18 19:30 08/28/18 12:49 4 UNITS Iohexol (Omnipaque 300 Mg/ml) 75 ml 1X ONCE 08/27/18 15:45 08/27/18 15:46 DC 08/27/18 15:45 100 ML Ipratropium [place] (Atrovent) 0.5 mg 1X ONCE 08/27/18 15:45 08/27/18 15:46 DC 08/27/18 16:05 0.5 MG Levothyroxine Sodium (Synthroid) 50 mcg DAILY06 08/28/18 10:30 08/31/18 06:27 50 MCG Lisinopril (Prinivil) 10 mg DAILY 08/28/18 09:00 08/28/18 09:47 DC Metformin HCl (Glucophage) 1,000 mg BIDWMEALS 08/29/18 17:00 08/31/18 08:02 1,000 MG Methylprednisolone Sodium Succinate (SOLU-Medrol 125MG VIAL) 125 mg 1X ONCE 08/27/18 15:45 08/27/18 15:46 DC 08/27/18 15:59 125 MG Non-Formulary Medication (Edoxaban Tosylate (Savaysa)) 60 mg DAILYWSUP 08/28/18 17:00 08/30/18 17:04 60 MG Ondansetron HCl (Zofran Odt) 8 mg PRN BID PRN 08/27/18 19:15 Ondansetron HCl (Zofran) 4 mg PRN Q6HRS PRN 08/27/18 19:15 Oxycodone/ Acetaminophen (Percocet 5/325) 1 tab PRN Q6HRS PRN 08/27/18 19:15 08/31/18 06:33 1 TAB Pantoprazole Sodium (Protonix) 40 mg DAILYAC 08/28/18 07:30 08/31/18 08:02 40 MG Piperacillin Sod/ Tazobactam Sod (Zosyn Per Pharmacy) 1 each PRN DAILY PRN 08/27/18 19:00 08/30/18 20:12 DC Piperacillin Sod/ Tazobactam Sod 4.5 gm/Sodium Chloride 100 ml @ 200 mls/hr Q6HRS 08/27/18 19:30 08/30/18 12:34 DC 08/30/18 05:57 200 MLS/HR Potassium Chloride/Sodium Chloride 1,000 ml @ 100 mls/hr Q10H 08/27/18 20:30 08/31/18 06:27 100 MLS/HR Rivaroxaban (Xarelto) 20 mg DAILYWSUP 08/27/18 20:00 08/28/18 13:15 DC Sodium Chloride 1,000 ml @ 100 mls/hr Q10H 08/27/18 20:30 08/27/18 20:30 DC Vancomycin HCl (Vanco Per Pharmacy) 1 each PRN DAILY PRN 08/27/18 19:00 08/29/18 11:38 DC 08/29/18 10:51 1 EACH Vancomycin HCl (Vancomycin Trough Level) 1 each 1X ONCE 08/29/18 08:30 08/29/18 08:31 DC 08/29/18 08:30 1 EACH Vancomycin HCl 2 gm/Sodium Chloride 500 ml @ 250 mls/hr Q12H 08/28/18 09:00 08/29/18 11:36 DC 08/29/18 10:41 250 MLS/HR Labs: Lab Laboratory Tests Test 08/30/18 12:04 08/30/18 17:00 08/30/18 20:39 08/31/18 07:35 Glucose (Fingerstick) 79 mg/dL (70-99) 105 mg/dL (70-99) 134 mg/dL (70-99) 118 mg/dL (70-99) Objective: Assessment: Acute hypoxic resp failure improving on O2 by NC normal procalcitonin Pneumonia acute on chronic failed outpt levaquin etiology could be infectious vs noninfectious immunotherpy induced vs radiation pneumonitis ,failed outpt levaquin Lung ca s/p CT and RT on immunotherapy Immunosupression DM LILIA History of pulmonary embolism. Diarrhea. Clostridium difficile and stool cultures ordered. Chronic obstructive pulmonary disease. Anemia. Port-A-Cath in place, left chest wall without any complications. History of bronchitis. Morbid obesity. Plan: Plan of Care cont empiric doxycycline ok to dc home from id standpoint on doxycycline 100 mg po bid for 4 more days f/u RVP and infectious disease serologies unable to give sputum for C/S Urine legionella neg f/u strep pneumo,Urine histo ag,crypto ag f/u oncology f/u with us if needed LIS MARTE MD Aug 31, 2018 12:01
[2018-08-31] MEDS ORDERED: ANTI-COAG MONITOR BY PHARMACY. MC PRN (13:15)
[2018-08-31 14:25] LABS: HISTOPLASMA AG URINE <0.5 (<0.5 ng/mL)
[2018-08-31 15:20] VITALS: BP 120/77
--- NOTE | 2018-08-31 15:20 | PDOC3 ---
Discharge Summary Date of Admission: Aug 27, 2018 Date of Discharge: Aug 31, 2018 Follow-Up: 3-5 days Admitting Diagnosis comment: Chief Complaint Chief Complaint COPD 40PK YRS sepsis Pneumonia right sided, acute hypoxic respiratory failure, POA [place] lung, status post chemotherapy and radiation therapy May 2018 needs home o2 arranged today, pending 2 liters at rest, 6 liters with activity oral doxy History of Present Illness History of Present Illness Pt seen and examined VSS DW RN home when o2 arranged today pcxr pending Vitals Vitals Vital Signs Date Time Temp Pulse Resp B/P (MAP) Pulse Ox O2 Delivery O2 Flow Rate FiO2 08/31/18 06:33 Nasal Cannula 2.0 08/31/18 03:05 99.1 90 20 107/58 (74) 91 99.1 Physical Exam Physical Exam GEN Axox3 tired appearing male in nad HEENT: Normocephalic, atraumatic, anicteric. No thrush. No sinus tenderness. NECK: Supple. No JVD. No lymphadenopathy. LUNGS: Clear bilaterally. No wheezing. HEART: S1, S2. No gallops or murmurs. ABDOMEN: Soft, obese. Bowel sounds present, nondistended, nontender. EXTREMITIES: No edema, no cyanosis, no clubbing. DERMATOLOGIC: No generalized rash, mild scattered macular rash left upper extremity, fading per patient. No skin breakdown, no blisters, no ulceration. NEUROLOGIC: Alert and oriented x 3, grossly nonfocal. PSYCHIATRIC: Appropriate mood and affect. CHEST: Port-A-Cath site left chest wall looks okay. General: Alert, Oriented X3, Cooperative, No acute distress, mild distress Heart: Regular rate, Normal S1 Lungs: Crackles Abdomen: Soft, No tenderness, No hepatosplenomegaly, No masses, Other (hyper active bowel sounds) Extremities: No clubbing, No cyanosis, No edema, Normal pulses, No tenderness/ swelling Skin: No rashes, No breakdown, No significant lesion Labs LABS PQRS Compliance statement: One or more of the following individualized dose reduction techniques were utilized for this examination: 1. Automated exposure control. 2. Adjustment of the mA and/or kV according to patient size. 3. Use of iterative reconstruction technique. Indication:CHEST PAIN, SHORTNESS OF BREATH, PRIOR HX OF PE TECHNIQUE: CT angiogram of the chest with IV contrast with multiplanar MIP reformats. COMPARISON:CT chest from 06/01/2018 FINDINGS: Diagnostic quality PE study. There are no central, segmental or subsegmental filling defects in the pulmonary arteries. Heart is normal in size. No pericardial or pleural effusion. Left chest wall Chemo-Port is seen with its tip in the SVC. No enlarged axillary adenopathy. Enlarged mediastinal and hilar lymph nodes are seen. Index lymph nodes as follows: 1.9 x 1.3 cm aortopulmonary recess lymph node (series 3 image 46). Right hilar lymph node measuring 2.6 x 1.6 cm (series 3 image 64). Multiple calcified mediastinal and left hilar lymph nodes are seen. Diffuse emphysematous changes are seen in the lungs. There are new interstitial opacities with consolidation in the region of right hilum. Findings are new when compared to previous exam from 06/01/2018. Diffuse hepatic steatosis. The visualized sections through the spleen, gallbladder, pancreas, adrenals and left kidney within normal limits. No suspicious bony lesion. IMPRESSION: 1. No PE. 2. Bilateral lung disease, new from previous exam from 06/01/2018 suggests right hilar pneumonia with superimposed interstitial infection. Follow-up CT recommended after medical therapy to ensure resolution. 3. Enlarged chest lymph nodes likely reactive. 4. Hepatic steatosis. Brief Hospital Course Mr. Larsen is a 58 old [sex] who presented with [ pneumonia] CONDITION AT DISCHARGE: Improved Discharge Medications Current Medications Ipratropium [place] (Atrovent) 0.5 mg 1X ONCE NEB Last administered on at 16:05; Start 08/27/18 at 15:45; Stop 08/27/18 at 15:46; Status DC Methylprednisolone Sodium Succinate (SOLU-Medrol 125MG VIAL) 125 mg 1X ONCE IV Last administered on 08/27/18at 15:59; Start 08/27/18 at 15:45; Stop at 15:46; Status DC Iohexol (Omnipaque 300 Mg/ml) 75 ml 1X ONCE IV Last administered on at 15:45; Start 08/27/18 at 15:45; Stop 08/27/18 at 15:46; Status DC Info (CONTRAST GIVEN -- Rx MONITORING) 1 each PRN DAILY PRN MC SEE COMMENTS; Start 08/27/18 at 15:45; Stop 08/29/18 at 15:44; Status DC Ceftriaxone Sodium (Rocephin) 1 gm 1X ONCE IVP Last administered on at 18:53; Start 08/27/18 at 18:00; Stop 08/27/18 at 18:01; Status DC Azithromycin 250 ml @ 250 mls/hr 1X ONCE IV ; Start 08/27/18 at 18:00; Stop 08/27/18 at 18:59; Status DC Ondansetron HCl (Zofran) 4 mg PRN Q8HRS PRN IV NAUSEA/VOMITING; Start at 18:15; Stop 08/27/18 at 19:01; Status DC Acetaminophen (Tylenol) 650 mg PRN Q4HRS PRN PO FEVER Last administered on 08/05at 09:31; Start 08/27/18 at 18:15; Stop 08/28/18 at 18:14; Status DC Albuterol/ Ipratropium (Duoneb) 3 ml RTQID NEB ; Start 08/27/18 at 20:00; Stop 08/27/18 at 20:00; Status DC Ondansetron HCl (Zofran) 4 mg PRN Q6HRS PRN IV NAUSEA/VOMITING; Start at 19:15 Vancomycin HCl (Vanco Per Pharmacy) 1 each PRN DAILY PRN MC SEE COMMENTS Last administered on 08/29/18at 10:51; Start 08/27/18 at 19:00; Stop 08/29/18 at 11 :38; Status DC Piperacillin Sod/ Tazobactam Sod (Zosyn Per Pharmacy) 1 each PRN DAILY PRN MC SEE COMMENTS; Start 08/27/18 at 19:00; Stop 08/30/18 at 20:12; Status DC Guaifenesin (Robitussin Dm) 10 ml PRN Q6HRS PRN PO COUGH; Start 08/27/18 at 19 :00 Albuterol/ Ipratropium (Duoneb) 3 ml RTQID NEB Last administered on 08/31/18at 11:50; Start 08/27/18 at 20:00 Diphenhydramine HCl (Benadryl) 25 mg PRN QHS PRN PO INSOMNIA; Start 08/27/18 at 19:00 Sodium Chloride 1,000 ml @ 100 mls/hr 1X ONCE IV Last administered on at 20:11; Start 08/27/18 at 19:15; Stop 08/28/18 at 05:14; Status DC Lisinopril (Prinivil) 10 mg DAILY PO ; Start 08/28/18 at 09:00; Stop 08/28/18 at 09:47; Status DC Oxycodone/ Acetaminophen (Percocet 5/325) 1 tab PRN Q6HRS PRN PO PAIN Last administered on 08/31/18at 06:33; Start 08/27/18 at 19:15 Budesonide (Pulmicort) 0.5 mg RTBID NEB Last administered on 08/31/18at 07:25; Start 08/27/18 at 20:00 Metformin HCl (Glucophage) 1,000 mg BIDWMEALS PO Last administered on at 08:02; Start 08/29/18 at 17:00 Pantoprazole Sodium (Protonix) 40 mg DAILYAC PO Last administered on at 08:02; Start 08/28/18 at 07:30 Ondansetron HCl (Zofran Odt) 8 mg PRN BID PRN PO NAUSEA/VOMITING; Start at 19:15 Rivaroxaban (Xarelto) 20 mg DAILYWSUP PO ; Start 08/27/18 at 20:00; Stop 08/28 at 13:15; Status DC Insulin Human Lispro (HumaLOG) 0-9 UNITS TIDWMEALS SQ Last administered on 08/05at 12:49; Start 08/27/18 at 19:30 Dextrose (Dextrose 50%-Water Syringe) 12.5 gm PRN Q15MIN PRN IV SEE COMMENTS; Start 08/27/18 at 19:15 Piperacillin Sod/ Tazobactam Sod 4.5 gm/Sodium Chloride 100 ml @ 200 mls/hr Q6HRS IV Last administered on 08/30/18at 05:57; Start 08/27/18 at 19:30; Stop 08/30/18 at 12:34; Status DC Vancomycin HCl 2 gm/Sodium Chloride 500 ml @ 250 mls/hr 1X ONCE IV Last administered on 08/27/18at 21:10; Start 08/27/18 at 20:00; Stop 08/27/18 at 21 :59; Status DC Sodium Chloride 1,000 ml @ 100 mls/hr Q10H IV ; Start 08/27/18 at 20:30; Stop 08/27/18 at 20:30; Status DC Potassium Chloride/Sodium Chloride 1,000 ml @ 100 mls/hr Q10H IV Last administered on 08/31/18at 06:27; Start 08/27/18 at 20:30 Vancomycin HCl (Vancomycin Trough Level) 1 each 1X ONCE MC Last administered on 08/29/18at 08:30; Start 08/29/18 at 08:30; Stop 08/29/18 at 08:31; Status DC Vancomycin HCl 2 gm/Sodium Chloride 500 ml @ 250 mls/hr Q12H IV Last administered on 08/29/18at 10:41; Start 08/28/18 at 09:00; Stop 08/29/18 at 11 :36; Status DC Amlodipine Besylate (Norvasc) 5 mg DAILY PO Last administered on 08/31/18at 08: 02; Start 08/28/18 at 09:00 Acetaminophen (Tylenol) 500 mg BID PO Last administered on 08/31/18at 08:02; Start 08/28/18 at 09:00 Non-Formulary Medication (Edoxaban Tosylate (Savaysa)) 60 mg DAILYWSUP PO ; Start 08/28/18 at 17:00; Status UNV Glipizide (Glucotrol Er) 5 mg BIDAC PO Last administered on 08/31/18at 08:02; Start 08/28/18 at 09:00 Levothyroxine Sodium (Synthroid) 50 mcg DAILY06 PO Last administered on at 06:27; Start 08/28/18 at 10:30 Non-Formulary Medication (Edoxaban Tosylate (Savaysa)) 60 mg DAILYWSUP PO Last administered on 08/30/18at 17:04; Start 08/28/18 at 17:00 Doxycycline Hyclate (Vibra-Tab) 100 mg BID PO Last administered on 08/31/18at 08:02; Start 08/28/18 at 14:00 Info (Anti-Coagulation Monitoring By Pharmacy) 1 each PRN DAILY PRN MC SEE COMMENTS Last administered on 08/31/18at 13:09; Start 08/31/18 at 13:15 Active Scripts Active Reported Acetaminophen 500 Mg Tablet 1 Tab PO BID Amlodipine Besylate 5 Mg Tablet 5 Mg PO DAILY Levofloxacin 500 Mg Tablet 1 Tab PO DAILY Savaysa (Edoxaban Tosylate) 60 Mg Tablet 60 Mg PO DAILYWSUP Glipizide Er (Glipizide) 5 Mg Tab.er.24 1 Tab PO BID Synthroid (Levothyroxine Sodium) 50 Mcg Tablet 1 Tab PO DAILY07 Imfinzi (Durvalumab) 120 Mg/2.4 Ml Vial 120 Mg IV Q 2WEEKS PER REGIMEN Percocet 5-325 Mg Tablet (Oxycodone/Acetaminophen) 1 Each Tablet 1 Tab PO PRN Q6HRS PRN Zofran (Ondansetron Hcl) 8 Mg Tablet 8 Mg PO BID PRN Prilosec Otc (Omeprazole Magnesium) 20 Mg Tablet.dr 20 Mg PO BID Symbicort 160-4.5 Mcg Inhaler (Budesonide/Formoterol Fumarate) 10.2 Gm Hfa.aer.ad 2 Puff IH BID Metformin Hcl 1,000 Mg Tablet 1,000 Mg PO BIDWMEALS Vital Signs Vital Signs Date Time Temp Pulse Resp B/P (MAP) Pulse Ox O2 Delivery O2 Flow Rate FiO2 08/31/18 11:51 93 Nasal Cannula 3.0 08/31/18 11:37 97.5 95 20 120/83 (95) 97.5 Labs Laboratory Tests Test 08/29/18 16:54 08/29/18 20:35 08/30/18 06:00 08/30/18 08:05 Glucose (Fingerstick) 91 mg/dL (70-99) 105 mg/dL (70-99) 133 mg/dL (70-99) Creatinine 1.3 mg/dL (0.7-1.3) Estimated GFR (Cockcroft-Gault) 56.9 IP-Anz-P-Type Natriuretic Peptide 97 pg/mL (0-124) Test 08/30/18 12:04 08/30/18 17:00 08/30/18 20:39 08/31/18 07:35 Glucose (Fingerstick) 79 mg/dL (70-99) 105 mg/dL (70-99) 134 mg/dL (70-99) 118 mg/dL (70-99) Test 08/31/18 11:57 Glucose (Fingerstick) 101 mg/dL (70-99) Laboratory Tests Test 08/30/18 17:00 08/30/18 20:39 08/31/18 07:35 08/31/18 11:57 Glucose (Fingerstick) 105 mg/dL (70-99) 134 mg/dL (70-99) 118 mg/dL (70-99) 101 mg/dL (70-99) Allergies Allergies Coded Allergies Type Severity Reaction Last Updated Verified Ljfzztr-Ypc-Jor Reductase Inhibitor Allergy Intermediate 08/24/18 Yes atorvastatin Allergy Intermediate Rash 02/23/18 Yes pravastatin Allergy Intermediate Swelling 02/23/18 Yes Disposition/Orders: D/C to Home Patient Instructions D/C PLANNING 40 MIN PAMELA HODGSON MD Aug 31, 2018 15:20
--- NOTE | 2018-08-31 15:21 | DISCH ---
DISCHARGE INSTRUCTIONS Condition on Discharge Condition on Discharge: Guarded Activity After Discharge Activity Instructions for Disc: No restrictions, Activity as tolerated, Avoid exertion Bathing Instructions: Shower-keep dressing dry, No Tub Bath until see Lifting Instructions after Dis: No heavy lifting, No pulling or pushing Driving Instructions after Dis: Do not drive Weight Bearing Status after Di: Full weight bearing Diet after Discharge Diet after Discharge: Cardiac Checks after Discharge Checks after discharge: Check blood press - daily Contacting the DRMinisterio after DC Call your doctor for: If your condition worsens PAMELA HODGSON MD Aug 31, 2018 15:21
[2018-08-31] MEDS ORDERED: DOXY100C2 PO (15:24)
[2018-08-31] MEDS ORDERED: HEPARIN PF 500 UNIT/5 ML DISP.SYRIN. IV ONE (17:15)
[2018-09-03 05:09] LABS: RVP ADENOVIRUS Negative (Negative); RVP INFLUENZA A Negative (Negative); RVP INFLUENZA B Negative (Negative); RVP METAPNEUMOVIRUS Negative (Negative); RVP PARAINFLUENZA 1 Negative (Negative); RVP PARAINFLUENZA 2 Negative (Negative); RVP PARAINFLUENZA 3 Negative (Negative); RVP RHINOVIRUS Negative (Negative); RVP RSV A Negative (Negative); RVP RSV B Negative (Negative)
== END 2018-08-31 17:40 | disposition home or self-care (01) | DRG 871 ==
LOC: ER 15:09 → 6 SOUTH 17:59
PROVIDERS: ADMIT Internal Medicine; ATTEND Internal Medicine
DX: A41.9 Sepsis, unspecified organism (principal); J18.9 Pneumonia, unspecified organism; J96.01 Acute respiratory failure with hypoxia; C34.90 Malignant neoplasm of unspecified part of unspecified bronchus or lung; J44.0 Chronic obstructive pulmonary disease with (acute) lower respiratory infection; Z68.42 Body mass index [BMI] 45.0-49.9, adult; D89.9 Disorder involving the immune mechanism, unspecified; E66.01 Morbid (severe) obesity due to excess calories; I10 Essential (primary) hypertension; E11.9 Type 2 diabetes mellitus without complications; D64.9 Anemia, unspecified; G47.33 Obstructive sleep apnea (adult) (pediatric); E03.9 Hypothyroidism, unspecified; H91.90 Unspecified hearing loss, unspecified ear; M19.90 Unspecified osteoarthritis, unspecified site; Z87.891 Personal history of nicotine dependence; Z80.6 Family history of leukemia; Z80.1 Family history of malignant neoplasm of trachea, bronchus and lung; Z79.01 Long term (current) use of anticoagulants; Z88.8 Allergy status to other drugs, medicaments and biological substances; Z92.3 Personal history of irradiation; Z92.21 Personal history of antineoplastic chemotherapy; Z79.84 Long term (current) use of oral hypoglycemic drugs; Z86.711 Personal history of pulmonary embolism
CPT/HCPCS: 36415; 71260; 71275; 80048; 80053; 80202; 82565; 82962; 83880; 84145; 84484; 85007; 85025; 87040; 87045; 87385; 87449; 87493; 87633; 87804; 87899; 93005; 94618; 94640; 94760; J0696; J1815; J2543; J2930; J3370; J7030; J7040; J7620; J7626; J7644; Q9967; 97110; 97116; 99285-25

== ENCOUNTER → 2018-11-09 | Outpatient (CLI) | payer BC ==
[~2018-11-09] MED LIST changes: +ACET500T68 PO; +AMLO5TAB10 PO; +DOXY100C2 PO; +EDOX60TA PO; +GLIP5TAB22 PO; +LEVO175T2 PO; +LEVO500T8 PO; +LEVO50TA PO; +PREG50CA PO
--- NOTE | 2018-11-09 14:11 | RAD ---
PQRS Compliance statement: One or more of the following individualized dose reduction techniques were utilized for this examination: 1. Automated exposure control. 2. Adjustment of the mA and/or kV according to patient size. 3. Use of iterative reconstruction technique. Indication:RT SIDED LUNG CA NO CONTRAST [REV SENT TECHNIQUE: CT chest without IV contrast with multiplanar reformats. COMPARISON: CT angiogram chest from 08/27/2018 FINDINGS: Left chest wall Chemo-Port with its tip in the SVC. Heart is normal in size. No pericardial or pleural effusion. No enlarged axillary adenopathy. Multiple calcified mediastinal and left hilar lymph nodes are seen. Stable noncalcified 1.9 x 1.2 cm aortopulmonary recess lymph node. Evaluation of hilar lymphadenopathy is limited due to lack of IV contrast. Diffuse bilateral interstitial opacities are seen. Mild loss of right lung volume with cystic changes in the posterior segment of the right upper lobe and superior segment of the right lower lobe. Stable consolidation is seen in the right perihilar region with atelectasis. Scattered splenic and hepatic calcified granulomas. Otherwise, noncontrast appearance of the liver, spleen, adrenals, pancreas, kidneys and upper abdomen within normal limits. Hepatic steatosis. No suspicious bony lesion. Impression 1. Stable right perihilar consolidative opacity with surrounding interstitial opacities and cystic changes in the right upper and lower lobe. Differential diagnoses includes post radiation/post therapeutic changes if there is history of radiation. Underlying chronic infection and recurrent/residual malignancy not ruled out. Overall findings are not significant change when compared to previous exam from 06/27/2018. Electronically signed by: Yazan Strong DO (11/09/2018 2:09 PM) [id number]
== END | disposition home or self-care (01) ==
LOC: CT 13:26
PROVIDERS: ATTEND Internal Medicine Critical Care Medicine
DX: C34.91 Malignant neoplasm of unspecified part of right bronchus or lung (principal); K76.0 Fatty (change of) liver, not elsewhere classified; K75.3 Granulomatous hepatitis, not elsewhere classified; J98.11 Atelectasis
CPT/HCPCS: 71250

== ENCOUNTER → 2018-11-12 | Outpatient (CLI) | payer BC ==
--- NOTE | 2018-11-12 10:24 | RAD ---
NUCLEAR MEDICINE VENTILATION PERFUSION SCAN History: Right lung cancer. History of radiation therapy. History of pulmonary embolus 2017. Comparison: Two-view chest, same day. Technique: Patient initially ventilated with 13.2 mCi of xenon-133 gas. Anterior and posterior imaging of the lungs during initial breath-hold, equilibrium and, washout phase images is performed. Perfusion portion performed after intravenous administration of 5.5 mCi Technetium 99m MAA. Multiple projection planar images of the lungs were obtained. Findings: The initial breath-hold ventilation images are heterogeneous. There is no significant retention of tracer on the washout phase images. Perfusion images demonstrate no mismatched segmental perfusion defects. There is a large matched defect in the right upper lobe. There is a small matched defect in the lateral left upper lobe. IMPRESSION: Low probability for pulmonary embolus. Electronically signed by: David Puri MD (11/12/2018 10:21 AM) [id number]
--- NOTE | 2018-11-12 11:19 | RAD ---
Chest, PA and Lateral: Technique: PA and lateral views of the chest were obtained. History: Cor pulmonale, pulmonary embolism. Comparison: 03/09/2018. Findings: Low lung volumes accentuate heart size and pulmonary vascularity. Mild cardiomegaly. There is mild prominent appearing bilateral interstitial lung markings particularly in the right upper lobe of the lung likely interstitial infiltrates or edema. Left-sided Port-A-Cath is identified. Mild degenerative changes thoracic spine. IMPRESSION: 1. Mild prominent appearing interstitial lung markings especially in the right upper lobe of the lung likely interstitial infiltrates or edema. Follow-up to resolution. Electronically signed by: Hernando Hayes MD (11/12/2018 11:16 AM) [id number]
== END | disposition home or self-care (01) ==
LOC: NM 08:21
PROVIDERS: ATTEND Internal Medicine Hematology & Oncology
DX: I26.99 Other pulmonary embolism without acute cor pulmonale (principal); I51.7 Cardiomegaly; Z85.118 Personal history of other malignant neoplasm of bronchus and lung
CPT/HCPCS: 71046; 78582; 96374; A9540; A9558

== ENCOUNTER → 2019-02-07 | Outpatient (CLI) | payer BC ==
[~2019-02-07] MED LIST changes: +CONTRAST GIVEN. MC PRN; +HEPARIN PF 500 UNIT/5 ML DISP.SYRIN. IV ONE; +IOHEXOL 240 MG/ML 50ML VIAL. PO ONE; +IOHEXOL 300 MG/ML 100ML VIAL. IV ONE
--- NOTE | 2019-02-07 09:46 | RAD ---
CT of the chest, abdomen and pelvis with contrast, 02/07/2019: History: Stage III lung cancer follow-up Multidetector CT imaging was performed following oral and IV administration of contrast. A left Port-A-Cath extends into the inferior aspect of the superior vena cava. There are calcified mediastinal and left hilar lymph nodes compatible with old granulomatous disease. A 14 mm noncalcified subcarinal lymph node on the right is unchanged since 11/09/2018. A 9 mm lymph node along the left side of the left main pulmonary artery has decreased slightly in size. No new mediastinal adenopathy is evident. There is ongoing consolidation and underlying bronchiectasis in the right upper lobe medially. Associated volume loss has increased. There is ongoing adjacent atelectasis/infiltrate in the superior segment of the right lower lobe. Scattered mild reticular and groundglass opacities primarily in the periphery of both lungs are unchanged and suggest a component of underlying fibrosis. A calcified granuloma is present left lower lobe. No pleural fluid is evident. There is hepatic steatosis. Calcified granulomata are present in the liver and spleen. No hepatic mass is evident. The gallbladder is unremarkable. No pancreatic abnormality is detected. The spleen is of normal size. There is mild bilateral renal cortical scarring. There is no evidence of hydronephrosis. The adrenal glands are unremarkable. There is mild aortoiliac calcific plaquing. A small portacaval lymph node has increased slightly in size and currently measures 14 mm in short axis dimension. No periaortic, mesenteric or pelvic adenopathy is seen. There are a few scattered colonic diverticula. The bowel loops are not dilated. No free fluid is evident in the abdomen or pelvis. Mild scattered degenerative changes are present in the spine. IMPRESSION: 1. There is ongoing right parahilar consolidation and bronchiectasis with increasing volume loss since 11/09/2018. This probably represents postradiation change. 2. Stable minimally enlarged subcarinal lymph node. 3. Mild fibrotic changes in both lungs. 4. Hepatic steatosis. 5. Slightly prominent portacaval lymph node of uncertain significance. 6. Colonic diverticulosis. PQRS Compliance Statement: One or more of the following individualized dose reduction techniques were utilized for this examination: 1. Automated exposure control 2. Adjustment of the mA and/or kV according to patient size 3. Use of iterative reconstruction technique PQRS Compliance Statement: One or more of the following individualized dose reduction techniques were utilized for this examination: 1. Automated exposure control 2. Adjustment of the mA and/or kV according to patient size 3. Use of iterative reconstruction technique
== END | disposition home or self-care (01) ==
LOC: CT 07:28
PROVIDERS: ATTEND Internal Medicine Hematology & Oncology
DX: C34.01 Malignant neoplasm of right main bronchus (principal); J47.9 Bronchiectasis, uncomplicated; I89.8 Other specified noninfective disorders of lymphatic vessels and lymph nodes; J84.10 Pulmonary fibrosis, unspecified; K76.0 Fatty (change of) liver, not elsewhere classified; K57.30 Diverticulosis of large intestine without perforation or abscess without bleeding; I70.8 Atherosclerosis of other arteries; N28.89 Other specified disorders of kidney and ureter
CPT/HCPCS: 71260; 74177; Q9966; Q9967

== ENCOUNTER → 2019-08-19 | Outpatient (CLI) | payer BC ==
[~2019-08-19] MED LIST changes: -HEPARIN PF 500 UNIT/5 ML DISP.SYRIN. IV ONE; -IOHEXOL 240 MG/ML 50ML VIAL. PO ONE; +PREG150C PO
--- NOTE | 2019-08-19 17:10 | RAD ---
Chest CT with contrast Clinical indications: Malignant neoplasm of the right lung. Lung cancer. Follow-up study. COMPARISON: May 17, 2019. TECHNIQUE: After IV infusion of 75 cc of Omnipaque 300, helical CT scanning of the chest was performed. PQRS compliance Statement One or more of the following individualized dose reduction techniques were utilized for this study: 1. Automated exposure control 2. Adjustment of the mA and/or kV according to patient size 3. Use of iterative reconstruction technique FINDINGS: Calcified lymph nodes of the mediastinum and left hilum are seen due to old granulomatous disease. No enlarging thoracic lymphadenopathy is seen. No focal aneurysmal dilatation or dissection of the thoracic aorta is seen. Heart size is not enlarged and no pericardial effusion is seen. Diffuse fatty infiltration of the liver is evident. No adrenal mass is seen. Adrenal glands are not completely seen in this study. Again seen is cicatricial atelectasis/consolidation and bronchiectasis of the medial aspect of the right lung field consistent with radiation pneumonitis. There is a new small ill-defined nodular lung infiltrate within the inferior medial aspect of the right middle lobe anteriorly. There is a new small nodular lung infiltrate within the upper posterior aspect of the left upper lobe. There is a persistent nodular infiltrate within the medial left posterior costophrenic angle which is unchanged. Calcified granuloma of the left lower lobe is again evident. Bilateral peripheral interstitial subpleural lung infiltrates are seen consistent with pulmonary fibrosis. No lytic process is seen. IMPRESSION: Since the previous study, there are new small ill-defined lung infiltrates within the right middle lobe and the left upper lobe which most likely are inflammatory or infectious in nature. Follow-up chest CT in 3-4 months is recommended to exclude developing neoplastic disease. Electronically signed by: Cory Haley MD (08/19/2019 5:07 PM) [place]
== END | disposition home or self-care (01) ==
LOC: CT 09:18
PROVIDERS: ATTEND Internal Medicine Hematology & Oncology
DX: C34.01 Malignant neoplasm of right main bronchus (principal); R91.8 Other nonspecific abnormal finding of lung field; K76.0 Fatty (change of) liver, not elsewhere classified; J44.9 Chronic obstructive pulmonary disease, unspecified; E11.9 Type 2 diabetes mellitus without complications; I10 Essential (primary) hypertension; Z88.8 Allergy status to other drugs, medicaments and biological substances; Z92.21 Personal history of antineoplastic chemotherapy
CPT/HCPCS: 71260; Q9967

== ENCOUNTER → 2019-11-18 | Outpatient (CLI) | payer BC ==
[~2019-11-18] MED LIST changes: -EDOX60TA PO; +EDOX60TA2 PO; +IOHEXOL 240 MG/ML 50ML VIAL. PO ONE
--- NOTE | 2019-11-18 11:35 | RAD ---
CT study of the chest and abdomen with contrast Clinical indications: Right lung cancer. Follow-up study. TECHNIQUE: After IV infusion of 75 cc of Omnipaque 300, helical CT scanning of the chest and abdomen down to the iliac crests was performed. GI contrast was administered per mouth. The pelvis was not evaluated on this study. PQRS compliance Statement One or more of the following individualized dose reduction techniques were utilized for this study: 1. Automated exposure control 2. Adjustment of the mA and/or kV according to patient size 3. Use of iterative reconstruction technique COMPARISON: Chest CT dated August 19, 2019. Chest and abdomen CT dated May 17, 2019. CHEST CT: Mediastinal lymph nodes are seen several of which are calcified due to old granulomatous disease. These are stable. Old calcified left hilar lymph nodes are seen due to old granulomatous disease. These are stable. No enlarging thoracic lymphadenopathy is evident. No focal aneurysmal dilatation of the thoracic aorta is seen. The heart size is normal and no pericardial effusion is seen. Calcified granuloma of left lower lobe is again evident. There is a small infiltrate present within the posterior aspect of the left upper lobe which is slightly larger and more dense. The infiltrate within the anterior medial aspect of the inferior portion of the right middle lobe is unchanged. On series 2 and images 16-17, there is a new nodular lung infiltrate within the lateral aspect of the right upper lobe. Again seen is scarring and collapse of the medial posterior aspect of the right upper lobe and the superior segment of the right lower lobe. There is adjacent interstitial lung infiltrates. This is stable. There is a small nodular lung infiltrate within the posterior medial left costophrenic angle which is stable. No pleural effusion or pneumothorax is seen. The proximal bronchial tree remains patent. IMPRESSION: Since the previous study in August 2019, there have been a mild increase in size and density of the posterior infiltrate within the upper aspect of the left upper lobe. There is a new small nodular lung infiltrate within the lateral aspect of the right upper lobe. These may be inflammatory or infectious in nature. ABDOMEN CT: Diffuse fatty infiltration of the liver is seen. No hepatic mass is seen. Spleen is not enlarged. No pancreatic mass is seen. The gallbladder is normal. No extra hepatic biliary ductal dilatation is seen. No adrenal mass is seen. Both kidneys are normal without hydronephrosis. No focal aneurysmal dilatation of the abdominal aorta is seen. The portacaval lymph node seen previously is unchanged. No new abdominal lymphadenopathy is seen. No obstructive bowel pattern is evident. No free air or free fluid or mesenteric edema is seen within the upper abdomen. No lytic process is seen. IMPRESSION: Stable portacaval lymph node. No new abnormality. Electronically signed by: Cory Haley MD (11/18/2019 11:32 AM) [facility] [place]
== END | disposition home or self-care (01) ==
LOC: CT 07:42
PROVIDERS: ATTEND Internal Medicine Hematology & Oncology
DX: C34.01 Malignant neoplasm of right main bronchus (principal); K76.0 Fatty (change of) liver, not elsewhere classified; R91.8 Other nonspecific abnormal finding of lung field; J84.10 Pulmonary fibrosis, unspecified; J98.4 Other disorders of lung
CPT/HCPCS: 71260; 74160; Q9966; Q9967

== ENCOUNTER → 2021-11-05 | Outpatient (CLI) | payer MEDICARE ==
[~2021-11-05] MED LIST changes: +AMLO-186 PO; -AMLO5TAB10 PO; -CONTRAST GIVEN. MC PRN; -DOXY100C2 PO; +DOXY100C3 PO; -IOHEXOL 240 MG/ML 50ML VIAL. PO ONE; -IOHEXOL 300 MG/ML 100ML VIAL. IV ONE; -LEVO500T8 PO; +LEVO500T9 PO; +LISI10TA16 PO; -LISI10TA2 PO; -PREG50CA PO; +PREG50CA91 PO
--- NOTE | 2021-11-05 15:01 | CARD ---
MR#: [id number] Date of Study: 11/05/2021 Ordering Physician: FELICIA CARPENTER, Referring Physician: FELICIA CARPENTER, Tech: Yoko Friedman [facility] APPROVED REPORT EXAM: Two-dimensional and M-mode echocardiogram with Doppler and color Doppler. Other Information Quality : Technically LimitedHR: 107bpm Rhythm : TachycardiaTechnically limited study due to body habitus. INDICATION COPD RISK FACTORS Obesity 2D DIMENSIONS IVSd1.9 (0.7-1.1cm)LVDd3.5 (3.9-5.9cm) PWd1.5 (0.7-1.1cm)LVDs2.2 (2.5-4.0cm) FS (%) 36.3 %SV33.2 ml LVEF(%)67.1 (>50%) LEFT VENTRICLE The left ventricle is normal size. There is mild to moderate concentric left ventricular hypertrophy. The left ventricular systolic function is normal and the ejection fraction is within normal range. E stimated ejection fraction is 55%. There is grossly normal LV segmental wall motion on limited images . RIGHT VENTRICLE The right ventricle is normal size. The right ventricle is moderately hypertrophied. The right ventri cular systolic function is normal. ATRIA The left atrium size is normal. The right atrium size is normal. AORTIC VALVE Not well visualized. GREAT VESSELS The aortic root is normal in size. PERICARDIAL EFFUSION There is no evidence of significant pericardial effusion. <Conclusion> The left ventricular systolic function is normal and the ejection fraction is within normal range. E stimated ejection fraction is 55%. There is grossly normal LV segmental wall motion on limited images. Limited echo only. Signed by : Serjio He, Electronically Approved : 11/05/2021 15:00:51
== END ==
LOC: ECHO 13:21
PROVIDERS: ATTEND Family Medicine
DX: I51.7 Cardiomegaly (principal); I50.33 Acute on chronic diastolic (congestive) heart failure
CPT/HCPCS: 93308